=== PATIENT | female | born 1960 | race Caucasian/White ===

== ENCOUNTER 2018-04-02 15:49 | Emergency (ER) | payer OTHER, SELFPAY ==
[2018-04-02 16:22] VITALS: BP 115/71; PULSE 74; RESP 14; TEMP 36.6; O2SAT 98
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
== END 2018-04-02 18:57 | disposition home or self-care (01) ==
LOC: ER 19:00
PROVIDERS: Emergency Provider Nurse Practitioner Acute Care
DX: S16.1XXA Strain of muscle, fascia and tendon at neck level, initial encounter (principal); V44.5XXA Car driver injured in collision with heavy transport vehicle or bus in traffic accident, initial encounter
CPT/HCPCS: 99284; 72040; 72110; 99282

== ENCOUNTER 2019-08-02 08:26 | Emergency (ER) | payer OTHER, SELFPAY ==
[2019-08-02 08:33] VITALS: BP 109/63; PULSE 69; RESP 16; TEMP 35.9; O2SAT 100
--- NOTE | 2019-08-02 08:36 | ED.GENADUL_ITS ---
Discharge Plan Disposition Patient Disposition: HOME Condition: Stable Discharge Details Chief Complaint: Vascular Clinical Impression: Posterior left knee pain Primary Care Provider: None,None ED Provider: Nanda Peraza Home Meds and New Rx's Prescriptions: Continued Vitamins and Minerals Tablet 1 tab PO PRN PRNRF: 0 Discharge Instructions Instructions: Knee Pain (ED) Additional Instructions: Call the radiology department tomorrow morning to schedule your left lower e xtremity ultrasound tomorrow to rule out a blood clot or cyst in the back of your knee. Keep the Alexander wrap in place to help with pain. You can apply ice or heat to the area for 20 minutes at a time. Follow-up with your primary care doctor in 1 week as needed. Return to the emergency department with any worsening or new concerning symptoms. Discharge Data Discharge Physician: Nanda Peraza Medical Decision Making 58-year-old female presents with left posterior knee pain for the past 5 days. Pain only occurs with squatting and bending at the left knee. Denies any fever, known injury, recent surgery, recent travel, calf pain. She has no h/o DVT risk factors. Nontoxic-appearing. Knee normal to inspection. No tenderness to palpation of knee or leg. Normal range of motion without pain or ligamentous instability. No evidence of infection or trauma. Negative Jacquie's sign. History and present ation not consistent with septic arthritis or DVT. Suspect with pain mainly with bending or squatting, more consistent with Woodard's cyst vs effusion, versus strain or sprain. She was offered x-ray but declines. An order form was completed for outpatient left lower extremity ultrasound tomorrow with radiology. Patient is advised to follow-up in the ED after for results. An Alexander wrap was placed in the left knee. She was given a dose of ibuprofen. She was advised on the importance of ibuprofen and Tylenol, rest, ice or heat. Usual and customary return precautions given prior to discharge. HPI General Mode of arrival: ambulatory . Date/Time Provider Initiated Documentation: 08/02/19 08:30 . Limitations to Documentation: no limitations . Information obtained by: patient . History of Present Illness 58 year old F presents to the emergency department with the chief complaint of L posterior knee pain , and is localized to the lower extremity (L posterior knee). Chelsie ent reports no radiation. Patient started experiencing this day(s) (5) and it has been constant. Rest improves symptom(s), Other factors that worsen symptoms (bending knee and squatting) . Patient notes no other symptoms.. Patient did receive the following treatments prior to arrival, none Related Data Home Medications Medication Instructions Recorded Confirmed Vitamins and Minerals 1 tab PO PRN PRN 04/02/18 08/02/19 Allergies Allergy/AdvReac Type Severity Reaction Status Date / Time No Known Allergies Allergy Unverified 08/02/19 08:36 General Stated Complaint: Vascular SANDY: 3 Review of Systems All systems reviewed & are unremarkable except as noted in HPI and below Constitutional Constitutional: Reports as per HPI, Denies chills and Denies fever(s) Eyes Eyes: Denies blurry vision ENT Ears, Nose, Mouth, and Throat: Denies dizziness, Denies sore throat and Denies throat swelling Cardiovascular Cardiovascular: Denies chest pain and Denies dyspnea Respiratory Respiratory: Denies cough and Denies dyspnea Gastrointestinal Gastrointestinal: Denies abdominal pain, Denies diarrhea and Denies vomiting Genitourinary Genitourinary: Denies hematuria and Denies dysuria Musculoskeletal Musculoskeletal: Denies back pain and Denies numbness Integumentary/Breasts Skin/Breast: Denies lesions and Denies rash Neurologic Neurologic: Denies dizziness, Denies focal weakness and Denies numbness Allergic/Immunologic Allergic/Immunologic: Denies throat swelling [facility] Medical History No significant past medical history (Acute) Surgical History History of breast surgery (Acute) Social History Smoking/Tobacco Use Status: Never Drug use: Never Substance use type: does not use Do you feel safe in your relationship?: Yes Exam Const General: cooperative, healthy appearing and no acute distress HENMT Head: normal to inspection Mouth: oral mucosae normal Eyes General: appearance normal, both eyes and all related structures Neck Neck: normal visual inspection Resp Effort & Inspection: normal respiratory effort and able to speak in complete sentences Cardio Rate: regular rate Skin General skin exam: no rashes or lesions noted Neuro General: alert, awake and oriented x3 Motor: muscle tone normal throughout Extrem Knee images: 1. No tenderness to palpation. No erythema, edema, ecchymoses. No rash or lesions. Other: No L calf tenderness. L DP/PT pulses intact. Negative Jacquie's signs L leg. No pain with ROM L leg. Normal range of motion at left hip, left ankle, left foot. Remainder of left lower extremity normal to inspection. Psych Appearance: grossly normal Affect: normal affect Course Vital Signs Vital signs: Vital Signs Temperature 96.6 F L 08/02/19 08:33 Pulse 69 08/02/19 08:33 Respiratory Rate 16 08/02/19 08:33 Blood Pressure 109/63 08/02/19 08:33 Pulse Oximetry 100 08/02/19 08:33 Temperature 96.6 F L 08/02/19 08:33 Temperature Source Skin 08/02/19 08:33 Pulse 69 08/02/19 08:33 Respiratory Rate 16 08/02/19 08:33 Respiratory Effort Non-Labored 08/02/19 08:33 Blood Pressure 109/63 08/02/19 08:33 Blood Pressure Position Sitting 08/02/19 08:33 Pulse Oximetry 100 08/02/19 08:33 Oxygen Delivery Method Room Air 08/02/19 08:33 Oxygen Flow Rate 0 08/02/19 08:33 Pain Level 1 08/02/19 08:33
[2019-08-02 08:41] VITALS: RESP 16
[2019-08-02] MEDS: Ibuprofen 600 MG TAB (09:05)
== END 2019-08-02 09:09 | disposition home or self-care (01) ==
LOC: ER 09:13
PROVIDERS: Emergency Provider Physician Assistant
DX: M25.562 Pain in left knee (principal)
CPT/HCPCS: 99282

== ENCOUNTER 2019-08-03 01:39 | Outpatient (CLI) | payer OTHER, SELFPAY ==
--- NOTE | 2019-08-03 10:41 | DI.US_ITS ---
EXAM: US LOWER EXTREMITY VENOUS LT CLINICAL HISTORY: L POSTERIOR KNEE PAIN BENDING SQUATTING, R/O DVT BAKERS CYST. TECHNIQUE: Left lower extremity venous ultrasound performed using grayscale, color-flow, and spectra l Doppler analysis. COMPARISON: No exams were available for comparison FINDINGS: The left common femoral, femoral and popliteal veins demonstrate normal compressibility, augmentation , and color Doppler. The posterior tibial veins are patent. Saphenofemoral junction appears unremarka ble. No evidence of a popliteal cyst. IMPRESSION: No DVT. Findings were discussed with the emergency department on the date of the examination.
== END 2019-08-03 01:59 ==
PROVIDERS: Visit Provider Physician Assistant
DX: M25.562 Pain in left knee (principal)
CPT/HCPCS: 93971

== ENCOUNTER 2019-08-03 11:00 | Emergency (ER) | payer OTHER, SELFPAY ==
[2019-08-03 11:04] VITALS: BP 109/57; PULSE 74; RESP 18; TEMP 36.3; O2SAT 100
--- NOTE | 2019-08-03 12:59 | ED.GENADUL_ITS ---
Discharge Plan Disposition Patient Disposition: HOME Condition: Stable Discharge Details Chief Complaint: Orthopedic Clinical Impression: Knee pain Primary Care Provider: None,None ED Provider: Alessia Anton Home Meds and New Rx's Prescriptions: No Action Vitamins and Minerals Tablet 1 tab PO PRN PRNRF: 0 Discharge Instructions Instructions: Knee Pain (ED) Additional Instructions: Please return immediately to the emergency department if you develop any new or worsening symptoms, if your condition does not improve as expected, or if you become otherwise concerned. It is extremely important that you call soon as possible to make an appointment to be seen in follow-up for this visit by your primary care doctor, and also by an orthopedic surgeon as we discussed. Referrals: Bolivar Vásquez MD [ [facility] STAFF PHYSICIAN] - Discharge Data Discharge Date/Time-TO BE ENTERED AT DEPARTURE: 08/03/19 13:08 Medical Decision Making Zayra Suarez is a 58 y/o woman without reported h/o medical problems who presented to the emergency department for US results after being seen here yesterady for knee pain and being scheduled for f/u US today. On exam Pt is very well and non-toxic appearing. No TTP of the knee, full painless ROM, normal inspection, distal LLE NVI. Exam/hx not c/w with septic arthritis, other infectious etiology, vascular compromise, other acute emergent life/limb threatening process. US neg. Plan for outpt f/u with ortho and PCP. I had a lengthy discussion with Patient regarding return to emergency department precautions, home care, and importance of outpatient follow-up. Pt verbalizes understanding of the plan and is amenable. Patient discharged to home with clear plan for outpatient follow-up. All questions were answered. Disposition decision was made weighing the risks and benefits of hospitalization versus outpatient treatment, the risk for further decompensation, and the patient's wishes. Medical Records Medical records reviewed: Yes I reviewed the patient's medical records. Imaging Data Radiologic Study: Attestation: I personally reviewed and interpreted this imaging study as follows: Radiologist's impression: EXAM: US LOWER EXTREMITY VENOUS LT CLINICAL HISTORY: L POSTERIOR KNEE PAIN BENDING SQUATTING, R/O DVT BAKERS CYST. TECHNIQUE: Left lower extremity venous ultrasound performed using grayscale, color-flow, and spectral Doppler analysis. COMPARISON: No exams were available for comparison FINDINGS: The left common femoral, femoral and popliteal veins demonstrate normal compressibility, augmentation, and color Doppler. The posterior tibial veins are patent. Saphenofemoral junction appears unremarkable. No evidence of a popliteal cyst. IMPRESSION: No DVT. HPI General Mode of arrival: ambulatory . Date/Time Provider Initiated Documentation: 08/03/19 11:18 . Limitations to Documentation: no limitations . Information obtained by: patient, RN notes reviewed and old records reviewed . HPI Narrative: Zayra Suarez is a 58 y/o woman without reported h/o major medical problems presenting to the emergency department for ultrasound results. Per Pt and record review, Pt was seen here yesterday for 5 days of left knee pain. Pt declined knee xray at yesterday's visit, outpt US for r/o DVT for today was ordered. 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 Pt reports no change in nature of her pain since visit yesterday. She states that pain is behind her left knee and occurs only with moving from sitting to standing or vice versa. No pain while walking. She denies any other pain, swelling, rash, numbness, weakness. No recent illness. Feels otherwise well and in her usual state of health. Related Data Home Medications Medication Instructions Recorded Confirmed Vitamins and Minerals 1 tab PO PRN PRN 04/02/18 08/03/19 Allergies Allergy/AdvReac Type Severity Reaction Status Date / Time No Known Allergies Allergy Unverified 08/03/19 11:08 General Stated Complaint: Orthopedic ASNDY: 4 Review of Systems Narrative: Constitutional: denies fevers Eyes: denies eye pain ENT: denies ear pain, dental pain, sore throat Cardiovascular: denies chest pain, edema Respiratory: denies SOB GI: denies abdominal pain, vomiting : denies flank pain MSK: denies back pain, neck pain, myalgias, reports left knee pain as per HPI Skin: denies rash Neuro: denies headaches, numbness, weakness PFSH Medical History No significant past medical history (Acute) Social History Smoking/Tobacco Use Status: Never Drug use: Never Substance use type: does not use Do you feel safe in your relationship?: Yes Exam Narrative Exam Narrative: Constitutional: well and [id number], pleasant, conversing normally HENT: head atraumatic/normocephalic/normal inspection, mucous membranes moist Eyes: conjunctiva normal, sclera normal, pupils 3mm b/l Neck: no stridor, normal ROM, trachea midline Resp: normal work of breathing Cardio: normal rate, normal rhythm Skin: warm, dry, normal color, no rash Neuro: alert, not altered, grossly non-focal, normal tone, normal gait Ext: no edema, DP pulse intact and symmetric, no posterior calf TTP, no TTP of the left knee or popliteal region, no effusion, no overlying ski changes to the knee, pain elicited with varus stress, no laxity noted during ant or post drawer, FROM of left knee without pain Psych: normal mood, normal affect, normal behavior Course Vital Signs Vital signs: Vital Signs Temperature 36.3 C L 08/03/19 11:04 Pulse 74 08/03/19 11:04 Respiratory Rate 18 08/03/19 11:04 Blood Pressure 109/57 L 08/03/19 11:04 Pulse Oximetry 100 08/03/19 11:04 Temperature 36.3 C L 08/03/19 11:04 Temperature Source Skin 08/03/19 11:04 Pulse 74 08/03/19 11:04 Respiratory Rate 18 08/03/19 11:04 Respiratory Effort Non-Labored 08/03/19 11:08 Blood Pressure 109/57 L 08/03/19 11:04 Blood Pressure Position Sitting 08/03/19 11:04 Pulse Oximetry 100 08/03/19 11:04 Oxygen Delivery Method Room Air 08/03/19 11:04 Oxygen Flow Rate 0 08/03/19 11:04 Pain Level 0 08/03/19 11:04
== END 2019-08-03 13:08 | disposition home or self-care (01) ==
PROVIDERS: Emergency Provider Student in an Organized Health Care Education/Training Program
DX: M25.562 Pain in left knee (principal)

== ENCOUNTER 2019-08-31 15:03 | Emergency (ER) | payer OTHER, SELFPAY ==
[2019-08-31 15:07] VITALS: BP 139/78; PULSE 95; TEMP 36.5; O2SAT 98
[2019-08-31] MEDS: predniSONE 20 MG TAB 60 MG PO (15:48)
[2019-08-31] MEDS: Albuterol/Ipratropium 3 ML UPD VIAL UPD ×3 (15:48→17:20)
--- NOTE | 2019-08-31 15:52 | ED.GENADUL_ITS ---
Discharge Plan Disposition Patient Disposition: HOME Condition: Improving Discharge Details Chief Complaint: GenMedical Clinical Impression: Acute bronchitis, Chest congestion Primary Care Provider: Rubi Frey ED Provider: Nanda Peraza Home Meds and New Rx's Prescriptions: New albuterol sulfate 2.5 mg /3 mL (0.083 %) solution for nebulization 2.5 mg IH Q4H PRN (Reason: shortness of breath or wheezing) Qty: 75 RF: 0 prednisone 20 mg tablet See Rx Instructions .ROUTE .COMPLEX Qty: 12 RF: 0 albuterol sulfate 90 mcg/actuation aerosol powdr breath activated 2 inh IH Q6H PRN (Reason: shortness of breath or wheezing) Qty: 1 RF: 0 codeine-guaifenesin 10-100 mg/5 mL liquid 10 ml PO Q6H PRN (Reason: cough) Qty: 120 RF: 0 Continued Vitamins and Minerals Tablet 1 tab PO PRN PRNRF: 0 Discharge Instructions Instructions: Acute Bronchitis (ED) Additional Instructions: Drink plenty of fluids and get plenty of rest. Alternate tylenol and motrin as needed and directed for pain. Use the albuterol inhaler and nebulizers as needed and directed for shortness of breath or wheezing. Take the steroids until finished. Also take [id number] Mucinex to help with breaking up mucus and chest congestion. Take the Robitussin with codeine as directed to help with cough. Follow-up with your primary care doctor in 1 week. Return to the emergency department with any worsening or new concerning symptoms. Stand Alone Forms: Work Release Discharge Data Discharge Date/Time-TO BE ENTERED AT DEPARTURE: 08/31/19 18:08 Discharge Physician: Nanda Peraza Medical Decision Making 1515 -- 58yo F presents w/ cough with chest congestion, fever and chills for the past 5 days. She states symptoms started with sore throat which is now resolved. She admits to intermittent shortness of breath. She states she has had fever and chills but has not taken her temperature. She admits to fairly good appetite. She denies any vomiting or diarrhea. She did receive the flu shot this year. Afebrile. Normal oxygen saturation. She appears nontoxic. Normal ENT exam. She has rhonchi and coarse breath sounds mid to lower lungs bilaterally. Differential diagnosis includes bronchitis, pneumonia, viral syndrome, influenza. Will give a DuoNeb steroids and refer for chest x-ray. 1630 -- chest x-ray negative. Patient reassessed still complaining of cough and shortness of breath. Oxygen saturation 97% on room air. Still with coarse breath sounds in bases bilaterally. Some increase in wheezing. Will give an aerogen neb and reassess. 1720 --patient reassessed -still complaining of cough and shortness of breath. Still with coarse breath sounds. Oxygen saturation 98% on room air. Will give another allergen neb and reassess. 1800 --patient reassessed -states she feels better. Stable oxygen saturation. Breath sounds improved. No wheezing noted. Patient states she feels good to go home. Patient sent with nebulizer machine per respiratory. We will send with albuterol inhaler, albuterol nebs, Robitussin with codeine and prednisone. Advised to follow up with the primary care doctor for re-evaluation. Usual and customary return precautions given prior to discharge. Medical Records Medical records reviewed: Yes I reviewed the patient's medical records. Imaging Data Radiologic Study: Radiologist's impression: XR CHEST 2V PA LATERAL CLINICAL HISTORY: cough, fever, r/o pneumonia TECHNIQUE: 2D digital imaging was performed. COMPARISON: No exams were available for comparison FINDINGS: The cardiac and mediastinal contours have a normal appearance. The lungs are well inflated and clear. No infiltrate, effusion or pneumothorax is seen. No spine or rib fracture is identified. IMPRESSION: Negative chest x-ray. HPI General Mode of arrival: ambulatory . Date/Time Provider Initiated Documentation: 08/31/19 15:10 . Limitations to Documentation: no limitations . Information obtained by: patient . History of Present Illness 58 year old F presents to the emergency department with the chief complaint of Cough, chest congestion, fever, chills, intermittent shortness of breath, and is localized to the chest. Patient started experiencing this day(s) (5) and it has been constant. No relieving factors improve symptom(s), No exacerbating factors reported . Patient notes cough, fever/chills and shortness of breath; denies headaches, loss of appetite, malaise, nausea/vomiting, rash, seizure, syncope and weakness. Patient did receive the following treatments prior to arrival, none Related Data Home Medications Medication Instructions Recorded Confirmed Vitamins and Minerals 1 tab PO PRN PRN 04/02/18 08/31/19 albuterol sulfate 2 inh IH Q6H PRN #1 each 08/31/19 albuterol sulfate 2.5 mg IH Q4H PRN #75 ml 08/31/19 codeine-guaifenesin 10 ml PO Q6H PRN #120 ml 08/31/19 prednisone See Rx Instructions .ROUTE 08/31/19 .COMPLEX #12 tab Previous Rx's Medication Instructions Recorded albuterol sulfate 2 inh IH Q6H PRN #1 each 08/31/19 albuterol sulfate 2.5 mg IH Q4H PRN #75 ml 08/31/19 codeine-guaifenesin 10 ml PO Q6H PRN #120 ml 08/31/19 prednisone See Rx Instructions .ROUTE 08/31/19 .COMPLEX #12 tab Allergies Allergy/AdvReac Type Severity Reaction Status Date / Time No Known Allergies Allergy Unverified 08/31/19 15:11 General Stated Complaint: GenMedical SANDY: 3 Review of Systems All systems reviewed & are unremarkable except as noted in HPI and below Constitutional Constitutional: Reports as per HPI, Reports chills and Reports fever(s) Eyes Eyes: Denies blurry vision ENT Ears, Nose, Mouth, and Throat: Denies dizziness, Denies sore throat and Denies throat swelling Cardiovascular Cardiovascular: Denies chest pain and Reports dyspnea Respiratory Respiratory: Reports chest congestion, Reports cough and Reports dyspnea Gastrointestinal Gastrointestinal: Denies abdominal pain, Denies diarrhea and Denies vomiting Genitourinary Genitourinary: Denies hematuria and Denies dysuria Musculoskeletal Musculoskeletal: Denies back pain and Denies numbness Integumentary/Breasts Skin/Breast: Denies lesions and Denies rash Neurologic Neurologic: Denies dizziness, Denies focal weakness and Denies numbness Allergic/Immunologic Allergic/Immunologic: Denies throat swelling PFSH Medical History No significant past medical history (Acute) Social History Smoking/Tobacco Use Status: Never Alcohol Intake: current Alcohol Intake frequency: holidays/special occasions only Drug use: Never Substance use type: does not use Do you feel safe at home: Yes Do you feel safe in your relationship?: Yes Exam Const General: cooperative and no acute distress HENMT Head: normal to inspection Face and sinus: normal facial exam Eyes General: appearance normal, both eyes and all related structures EOM: EOM intact bilaterally Neck Neck: normal visual inspection and No submandibular swelling Lymphatic: no lymphadenopathy noted Chest Chest: normal inspection of the chest and no tenderness Resp Effort & Inspection: normal respiratory effort and able to speak in complete sentences Auscultation: rhonchi lower bilaterally Cardio Rate: regular rate Rhythm: regular rhythm GI Inspection: normal to inspection Palpation: soft, not firm, not rigid and nontender Auscultation: normal bowel sounds Skin General skin exam: no rashes or lesions noted Neuro General: alert, awake and oriented x3 Cognition: normal cognition Speech: speech normal Motor: muscle tone normal throughout Sensory Exam: no sensory deficits noted Extrem General: normal to inspection, full ROM, normal capillary refill, no calf tenderness bilaterally and no edema Psych Appearance: grossly normal Mental Status: mental status grossly normal Speech and Movement: speech and movement normal Affect: normal affect Course Vital Signs Vital signs: Vital Signs Temperature 97.7 F 08/31/19 15:07 Pulse 95 H 08/31/19 15:07 Blood Pressure 139/78 08/31/19 15:07 Pulse Oximetry 98 08/31/19 15:07 Temperature 97.7 F 08/31/19 15:07 Temperature Source Temporal Artery Scan 08/31/19 15:07 Pulse 95 H 08/31/19 15:07 Respiratory Effort Non-Labored 08/31/19 15:12 Blood Pressure 139/78 08/31/19 15:07 Blood Pressure Position Sitting 08/31/19 15:07 Pulse Oximetry 98 08/31/19 15:07 Oxygen Delivery Method Room Air 08/31/19 15:07 Oxygen Flow Rate 0 08/31/19 15:07 Pain Level 3 08/31/19 15:07
--- NOTE | 2019-08-31 16:13 | DI.RAD_ITS ---
EXAM: XR CHEST 2V PA LATERAL CLINICAL HISTORY: cough, fever, r/o pneumonia TECHNIQUE: 2D digital imaging was performed. COMPARISON: No exams were available for comparison FINDINGS: The cardiac and mediastinal contours have a normal appearance. The lungs are well inflated and clear . No infiltrate, effusion or pneumothorax is seen. No spine or rib fracture is identified. IMPRESSION: Negative chest x-ray.
[2019-08-31 16:45] VITALS: RESP 16
[2019-08-31 16:55] VITALS: PULSE 91; RESP 12; RESP 4; RESP 5; O2SAT 95
[2019-08-31 17:06] VITALS: PULSE 103; RESP 12; RESP 2; RESP 4; RESP 5; O2SAT 100
[2019-08-31 17:20] VITALS: PULSE 105; RESP 16; RESP 2; RESP 4; RESP 5; O2SAT 100
[2019-08-31 17:26] VITALS: PULSE 118; RESP 16; RESP 2; O2SAT 100
== END 2019-08-31 18:08 | disposition home or self-care (01) ==
PROVIDERS: Emergency Provider Physician Assistant; PCP Nurse Practitioner
DX: R09.89 Other specified symptoms and signs involving the circulatory and respiratory systems (principal); J20.9 Acute bronchitis, unspecified; R50.9 Fever, unspecified
CPT/HCPCS: 94640; 99285; 71046; J7512; J7620

== ENCOUNTER 2019-10-15 01:11 | Outpatient (CLI) | payer OTHER, SELFPAY ==
--- NOTE | 2019-10-15 14:41 | DI.MAMMO_ITS ---
EXAM: MAMMO SCREENING CLINICAL HISTORY: screening, Z12.39 TECHNIQUE: Mammograms were interpreted according to the usual protocol including computer analysis w [email or web address] CAD system, tomosynthesis and C-view imaging. FINDINGS: The breasts are heterogeneously dense. No dominant mass identified in either breast. A group of maik ign-appearing microcalcifications are noted in the central portion of the left breast in the lower ou ter quadrant and are unchanged in comparison with prior examination of September 2017. No other signific ant change seen. IMPRESSION: No specific evidence of malignancy at this time. BI-RADS Cat 1 - Negative. Breast Density - Category C - Heterogeneously dense.
== END 2019-10-15 01:31 ==
PROVIDERS: PCP Student in an Organized Health Care Education/Training Program; Visit Provider Nurse Practitioner
DX: Z12.31 Encounter for screening mammogram for malignant neoplasm of breast (principal); R92.0 Mammographic microcalcification found on diagnostic imaging of breast
CPT/HCPCS: 77063; 77067

== ENCOUNTER 2020-01-19 01:47 | Outpatient (CLI) | payer OTHER, SELFPAY ==
--- NOTE | 2020-01-19 14:00 | DI.DEXA_ITS ---
EXAM: XR DEXA BONE DENSITY W/WO MK CLINICAL HISTORY: Fam Hx osteoporosis TECHNIQUE: COMPARISON: No exams were available for comparison FINDINGS: Lateral Spine Image: Unremarkable. No compression deformities identified. Left hip: Total T-Score: -1.0 Total Z-Score: -0.1 T- and Z-scores: Within normal limits. Lumbar Spine: Total T-Score: -2.8 Total Z-Score: -1.5 T- and Z-scores: Findings consistent with osteoporosis and high fracture risk. IMPRESSION: Findings consistent with osteoporosis in the lumbar spine.
== END 2020-01-19 02:07 ==
PROVIDERS: PCP Student in an Organized Health Care Education/Training Program; Visit Provider Student in an Organized Health Care Education/Training Program
DX: M81.0 Age-related osteoporosis without current pathological fracture (principal); Z82.62 Family history of osteoporosis
CPT/HCPCS: 77080

== ENCOUNTER 2020-01-21 07:19 | Outpatient (CLI) | payer OTHER, SELFPAY ==
[2020-01-21 07:36] LABS: HCT 42.1 % (36.0-46.0); HGB 14.1 g/dL (12.0-15.5); Mean Corp. HGB Concentration 33.5 g/dL (32.0-36.0); Mean Corpuscular Hemoglobin 28.8 pg (27.0-33.0); Mean Corpuscular Volume 85.9 fL (80-95); Mean Platelet Volume 9.6 fL (8.0-11.0); Platelet Count 303 x1000/uL (130-400); RBC Distribution Width 12.3 % (11.7-14.6); White Blood Cell Count 6.56 k/cumm (4.4-10.8)
[2020-01-21 08:47] LABS: ALT 16 U/L (14-59); AST 17 U/L (15-37); Albumin 3.9 g/dL (3.4-5.0); Alkaline Phosphatase 102 U/L (46-116); Anion Gap 7.9 mmol/L (3-11); BUN 20 mg/dL (7-18); Bilirubin, Total 0.5 mg/dL (0.2-1.0); CO2 28.1 mmol/L (21.0-32.0); CREATININE 0.75 mg/dL (0.55-1.02); Calcium 9.3 mg/dL (8.5-10.1); Calculated LDL 118 mg/dL (<100); Chloride 106 mmol/L (98-107); Cholesterol 218 mg/dL (<200); Glucose 94 mg/dL (74-106); HDL Cholesterol 81 mg/dL (40-60); Potassium 4.1 mmol/L (3.5-5.1); Sodium 142 mmol/L (136-145); Total Protein 7.1 g/dL (6.4-8.2); Triglyceride 97 mg/dL (<150)
== END 2020-01-21 07:39 ==
PROVIDERS: PCP Student in an Organized Health Care Education/Training Program; Visit Provider Student in an Organized Health Care Education/Training Program
DX: I10 Essential (primary) hypertension (principal); R53.83 Other fatigue; Z13.220 Encounter for screening for lipoid disorders; Z13.1 Encounter for screening for diabetes mellitus
CPT/HCPCS: 36415; 80053; 80061; 85027

== ENCOUNTER 2020-02-09 07:30 | Outpatient (CLI) | payer OTHER, SELFPAY ==
[2020-02-09 07:58] LABS: Abs Immature Grans 0.02 k/cumm (0.0-0.09); Absolute Basophil Count 0.02 k/cumm (0.0-0.2); Absolute Eosinophil Count 0.16 k/cumm (0.0-0.7); Absolute Lymphocyte Count 2.71 k/cumm (1.2-3.4); Absolute Monocyte Count 0.42 k/cumm (0.11-0.7); Absolute Neutrophil Count 3.69 k/cumm (1.2-6.7); Basophils % 0.3; Eosinophils % 2.3; HGB 13.4 g/dL (12.0-15.5); Immature Grans % 0.3 %; Lymphocytes % 38.6; Mean Corp. HGB Concentration 32.7 g/dL (32.0-36.0); Mean Corpuscular Hemoglobin 28.3 pg (27.0-33.0); Mean Corpuscular Volume 86.7 fL (80-95); Mean Platelet Volume 9.4 fL (8.0-11.0); Neutrophils % 52.5; Platelet Count 320 x1000/uL (130-400); RBC 4.73 m/cumm (4.00-5.20); RBC Distribution Width 12.2 % (11.7-14.6); White Blood Cell Count 7.02 k/cumm (4.4-10.8)
[2020-02-09 09:25] LABS: ALT 22 U/L (14-59); AST 18 U/L (15-37); Alkaline Phosphatase 99 U/L (46-116); Anion Gap 8.4 mmol/L (3-11); BUN 24 mg/dL (7-18); Bilirubin, Total 0.4 mg/dL (0.2-1.0); CO2 28.6 mmol/L (21.0-32.0); CREATININE 0.75 mg/dL (0.55-1.02); Calcium 9.6 mg/dL (8.5-10.1); Chloride 102 mmol/L (98-107); Glucose 98 mg/dL (74-106); Potassium 4.4 mmol/L (3.5-5.1); Sodium 139 mmol/L (136-145); TSH 2.05 uIU/mL (0.36-3.74); Total Protein 7.4 g/dL (6.4-8.2)
[2020-02-09 09:26] LABS: Magnesium 2.4 mg/dL (1.8-2.4)
[2020-02-09 18:58] LABS: Vitamin D 25 Total 31.4 ng/ml (30-100)
[2020-02-15 10:39] LABS: Misc Referral (MAYO) See Comments
== END 2020-02-09 07:50 ==
PROVIDERS: Nurse Practitioner; PCP Student in an Organized Health Care Education/Training Program; Visit Provider Internal Medicine
DX: M81.0 Age-related osteoporosis without current pathological fracture; R20.0 Anesthesia of skin; E55.9 Vitamin D deficiency, unspecified
CPT/HCPCS: 36415; 80053; 82306; 82310; 82340; 82565; 83735; 84443; 85025

== ENCOUNTER 2020-08-22 15:56 | Outpatient (REF) | payer OTHER, SELFPAY ==
--- NOTE | 2020-08-22 15:42 | PAPFT_PTH ---
PATIENT: Zarya Doll LOC: [facility] U#:[id number] AGE/SX: 59/F ROOM: RE08/22/[address]: Lakshmi Russell DO : 1960 BED: DIS: 08/22/2020 SPEC #: [id number] RECD: 08/22/20 18:07 STATUS: STEVEN REQ #: [id number] KOTA: 08/22/20 15:[address]: Lakshmi Russell [facility]PT[facility] Cytology RECD BY: Heather Evans ENTERED: 08/22/20 18:08 SP TYPE: PAPFT OTHR DR: Estela Aguilar DO Tissues: 1 - CX/ENDOCX FOR PAP SMEARS Procedures: PAP THIN PREP/UVM Screening HPV DNA PROBE Comments: [id number]
== END 2020-08-22 16:16 ==
LOC: LBN 15:56
PROVIDERS: PCP Student in an Organized Health Care Education/Training Program; Visit Provider Obstetrics & Gynecology
DX: Z12.4 Encounter for screening for malignant neoplasm of cervix (principal); Z11.51 Encounter for screening for human papillomavirus (HPV)
CPT/HCPCS: 88142; 87624

== ENCOUNTER 2020-08-29 01:37 | Outpatient (CLI) | payer OTHER, SELFPAY ==
--- NOTE | 2020-08-29 08:39 | DI.US_ITS ---
EXAM: US PELVIS TRANSVAGINAL CLINICAL HISTORY: Family history of ovarian cancer,Z80.41,cervical polyp. TECHNIQUE: Transabdominal and transvaginal pelvic ultrasound was performed using standard protocol. COMPARISON: No exams were available for comparison FINDINGS: KIDNEYS: Kidneys are symmetric in size. There is bilateral nephrolithiasis. An 8 mm echogenic shadow ing focus is seen in the right kidney. Two 5 mm foci are seen in the left kidney. No evidence of hy dronephrosis. No renal mass or cyst identified. UTERUS: Position: Retroverted. There is limited visualization of the fundus of the uterus due to its positio n. Size: 5.6 long by 3.7 AP by 4.6 transverse cm Endometrium: 0.6 cm. Several calcifications are seen within the endometrium. No definite discrete ma ss is seen. Myometrium: Unremarkable. Cervix: There is a question of a mass within the cervical endometrial cavity. It measures 1.1 x 0.3 x 0.3 cm. OVARIES: Right: 2.4 x 1.9 x 1.0 cm Cyst or mass: 1.2 x 1.4 x 1.5 cm simple cyst. No solid ovarian mass. Left: 1.4 x 0.9 x 0.7 cm Cyst or mass: None. DOPPLER: Color: Symmetric and uniform flow to both ovaries. No hyperemia. Duplex: Normal ovarian arterial waveforms visualized. CUL-DE-SAC: Free fluid: None. Other: None. IMPRESSION: 1. Bilateral nephrolithiasis. No evidence of hydronephrosis. 2. Retroverted uterus with limited visualization of the fundus. Possible isoechoic mass seen within the cervical endometrial canal measuring 1.1 x 0.3 x 0.3 cm. Gynecologic consult is recommended for further evaluation. 3. Unremarkable bilateral ovaries. DATA REPOSITORY:
== END 2020-08-29 01:38 | disposition home or self-care (01) ==
LOC: DI 01:37
PROVIDERS: PCP Student in an Organized Health Care Education/Training Program; Visit Provider Obstetrics & Gynecology
DX: N20.0 Calculus of kidney (principal); Z80.41 Family history of malignant neoplasm of ovary; N85.4 Malposition of uterus
CPT/HCPCS: 76830; 76856

== ENCOUNTER 2020-09-20 12:16 | Emergency (ER) | payer OTHER, SELFPAY ==
--- NOTE | 2020-09-20 12:19 | ED.GENADUL_ITS ---
Discharge Plan Disposition Patient Disposition: HOME Condition: Fair Discharge Details Clinical Impression: Infected dog bite of hand including fingers Primary Care Provider: Estela Aguilar ED Provider: Barbara Terrell Home Meds and New Rx's Prescriptions: Continued mecobalamin (vitamin B12) 1,000 mcg tablet,disintegrating 1,000 mcg SL DAILY RF: 0 ascorbate calcium (vitamin C) 500 mg tablet See Rx Instructions PO DAILY RF: 0 amoxicillin-pot clavulanate [Augmentin] 875-125 mg tablet 1 tab PO BID Qty: 20 RF: 0 calcium carb-magnesium carb 250-300 mg tablet 2 tab PO DAILY RF: 0 Discharge Instructions Instructions: Animal Bite (ED) Additional Instructions: Please continue taking the Augmentin as previously prescribed. Return to the ED or be seen by PCP in the next 2 to 3 days. If the erythema extends to the wrist or past the wrist please return to the ER immediately for admission into the hospital. Follow up with primary care provider in 2-30days. Return to ED sooner if any worsening or concerns. Increase oral fluids. Please take Tylenol or Ibuprofen with food every 4-6 hours as needed for pain and swelling. Keep a clean dry dressing over the wound. Stand Alone Forms: Work Release Referrals: Estela Aguilar DO [Primary Care Provider] - Discharge Data Discharge Date/Time-TO BE ENTERED AT DEPARTURE: 09/20/20 15:10 Medical Decision Making Note created in error by me. I did not see or examine the patient. HPI General Date/Time Provider Initiated Documentation: 09/20/20 12:17 . Related Data Home Medications Medication Instructions Recorded Confirmed ascorbate calcium (vitamin C) 500 See Rx Instructions PO DAILY 12/18/19 09/20/20 mg tablet calcium carb-magnesium carb 250 2 tab PO DAILY tab 12/18/19 09/20/20 mg-300 mg tablet mecobalamin (vitamin B12) 1,000 1,000 mcg SL DAILY 12/18/19 09/20/20 mcg disintegrating tablet,sublingual amoxicillin 875 mg-potassium 1 tab PO BID #20 tab 09/19/20 09/20/20 clavulanate 125 mg tablet Previous Rx's Medication Instructions Recorded amoxicillin 875 mg-potassium 1 tab PO BID #20 tab 09/19/20 clavulanate 125 mg tablet Allergies Allergy/AdvReac Type Severity Reaction Status Date / Time No Known Allergies Allergy Verified 09/19/20 14:08 General SANDY: 3 PFSH Medical History Cervical polyp Family history of breast cancer Family history of cardiovascular disease Family history of ovarian cancer Family hx of colon cancer [place] (2002)(42yo) [ ] Rpt Hx of viral illness Possible COVID19 .. late Jul travel, followed by terrible flu-like illness with significant chest discomfort/SOB. No significant past medical history Osteoporosis Based on ankle tamar, hip U/S. Fam Hx (Grand mo kyphosis). Improved diet, no bisphosph. [ ] DEXA Tinnitus Well woman exam with routine gynecological exam Surgical History History of breast surgery History of right breast biopsy (~2009) Calcifications Family History Mother Breast cancer Father Colon cancer Heart disease Depression Sister Skin cancer Cancer Ovarian cancer Paternal Grandmother Breast cancer Maternal Grandmother Breast cancer Social History Smoking/Tobacco Use Status: Never Smoking risk assessment performed?: Yes Alcohol Intake: current Alcohol Intake frequency: holidays/special occasions only Alcohol type: beer and wine Drug use: Never Substance use type: does not use Adopted: No Caregiver/Support person: No Foster care: No Household members: spouse Housing: house Number of Children: 3 Communication Needs: None Do you need help understanding health information?: Never 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
[2020-09-20 12:26] VITALS: BP 137/71; PULSE 70; RESP 16; TEMP 36.4; O2SAT 100
--- NOTE | 2020-09-20 12:45 | ED.GENADUL_ITS ---
Discharge Plan Disposition Patient Disposition: HOME Condition: Fair Discharge Details Clinical Impression: Infected dog bite of hand including fingers Primary Care Provider: Estela Aguilar ED Provider: Barbara Terrell Home Meds and New Rx's Prescriptions: Continued mecobalamin (vitamin B12) 1,000 mcg tablet,disintegrating 1,000 mcg SL DAILY RF: 0 ascorbate calcium (vitamin C) 500 mg tablet See Rx Instructions PO DAILY RF: 0 amoxicillin-pot clavulanate [Augmentin] 875-125 mg tablet 1 tab PO BID Qty: 20 RF: 0 calcium carb-magnesium carb 250-300 mg tablet 2 tab PO DAILY RF: 0 Discharge Instructions Instructions: Animal Bite (ED) Additional Instructions: Please continue taking the Augmentin as previously prescribed. Return to the ED or be seen by PCP in the next 2 to 3 days. If the erythema extends to the wrist or past the wrist please return to the ER immediately for admission into the hospital. Follow up with primary care provider in 2-30days. Return to ED sooner if any worsening or concerns. Increase oral fluids. Please take Tylenol or Ibuprofen with food every 4-6 hours as needed for pain and swelling. Keep a clean dry dressing over the wound. Stand Alone Forms: Work Release Referrals: Estela Aguilar DO [Primary Care Provider] - Discharge Data Discharge Date/Time-TO BE ENTERED AT DEPARTURE: 09/20/20 15:10 Medical Decision Making 59-year-old female presents to the ED with chief complaint of left second digit dog bite which happened approximately Saturday night. She states it was her own dog who is about 14 years old, large breed dog. Dog was startled and bit down on her second digit. She was seen by her PCP and placed on Augmentin which she has taken 3 doses, PCP outlined the erythema, redness has extended beyond the markings. She did report that yesterday she did have some myalgias took some ibuprofen at home and took a nap. She denies any fever, no axillary tenderness no red streaks noted up her forearm. She does have decreased flexion in her left second digit. At this time there is no signs of tenosynovitis, no palmar tenderness with palpation, EXAM: XR HAND LT COMPLETE CLINICAL HISTORY: Left 2nd digit dog bite, cellulitis TECHNIQUE: COMPARISON: No exams were available for comparison FINDINGS: Three views were obtained. There appears to be soft tissue swelling of the index finger. No underlying bony abnormality seen to suggest the presence of fracture or osteomyelitis. No other bony abnormality seen involving hand. 1412: Discussed lab results with patient who verbalized understanding discussed home care and strict return instructions. Shared decision making was performed with patient regarding admission versus continuation with the oral antibiotics outpatient. Patient agrees to plan of continuing Augmentin for the next 2 to 3 days and having a follow-up visit eithe r here in the ED or by PCP within 2 to 3 days. Discussed strict return instructions if the erythema gets to the wrist or passes the wrist that she is to return to the ED immediately for admission. Patient received cefazolin 1 g IV piggyback here in department and Unasyn 3 g IV piggyback to cover for Pasteurella. Diagnosis: Infected dog bite and cellulitis to left index finger Differential diagnosis includes but not limited to, osteomyelitis, septic arthritis, worsening cellulitis HPI General Mode of arrival: ambulatory . Date/Time Provider Initiated Documentation: 09/20/20 12:17 . Limitations to Documentation: no limitations . Information obtained by: patient, RN notes reviewed and old records reviewed . HPI Narrative: 59-year-old female presents to the ED with chief complaint of left second digit dog bite which happened approximately Saturday night. She states it was her own dog who is about 14 years old, large breed dog. Dog was startled and bit down on her second digit. She was seen by her PCP and placed on Augmentin which she has taken 3 doses, PCP outlined the erythema, redness has extended beyond the markings. She did report that yesterday she did have some myalgias took some ibuprofen at home and took a nap. She denies any fever, no axillary tenderness no red streaks noted up her forearm. She does have decreased flexion in her left second digit. Related Data Home Medications Medication Instructions Recorded Confirmed ascorbate calcium (vitamin C) 500 See Rx Instructions PO DAILY 12/18/19 09/20/20 mg tablet calcium carb-magnesium carb 250 2 tab PO DAILY tab 12/18/19 09/20/20 mg-300 mg tablet mecobalamin (vitamin B12) 1,000 1,000 mcg SL DAILY 12/18/19 09/20/20 mcg disintegrating tablet,sublingual amoxicillin 875 mg-potassium 1 tab PO BID #20 tab 09/19/20 09/20/20 clavulanate 125 mg tablet Previous Rx's Medication Instructions Recorded amoxicillin 875 mg-potassium 1 tab PO BID #20 tab 09/19/20 clavulanate 125 mg tablet Allergies Allergy/AdvReac Type Severity Reaction Status Date / Time No Known Allergies Allergy Verified 09/19/20 14:08 General Stated Complaint: AnimalBite SANDY: 3 Review of Systems Narrative: Constitutional: Negative for weight loss, alert and oriented, well groomed, normal body habitus, appears comfortable. All systems reviewed & are unremarkable except as noted in HPI and below Constitutional Constitutional: Reports as per HPI, Reports body ache(s), Denies fever(s) and Reports lethargy Cardiovascular Cardiovascular: Reports system reviewed and no additional complaints, except as documented Respiratory Respiratory: Reports system reviewed and no additional complaints, except as documented Gastrointestinal Gastrointestinal: Reports system reviewed and no additional complaints, except as documented Musculoskeletal Musculoskeletal: Reports as per HPI, Reports myalgias, Reports arthralgias, Reports joint swelling, Reports stiffness and Reports other (Dog bite, increased erythema, swelling) PFSH Medical History Cervical polyp Family history of breast cancer Family history of cardiovascular disease Family history of ovarian cancer Family hx of colon cancer [place] (2002)(42yo) [ ] Rpt Hx of viral illness Possible COVID19 .. late Jul travel, followed by terrible flu-like illness with significant chest discomfort/SOB. No significant past medical history Osteoporosis Based on ankle tamar, hip U/S. Fam Hx (Grand mo kyphosis). Improved diet, no bisphosph. [ ] DEXA Tinnitus Well woman exam with routine gynecological exam Surgical History History of breast surgery History of right breast biopsy (~2009) Calcifications Family History Mother Breast cancer Father Colon cancer Heart disease Depression Sister Skin cancer Cancer Ovarian cancer Paternal Grandmother Breast cancer Maternal Grandmother Breast cancer Social History Smoking/Tobacco Use Status: Never Smoking risk assessment performed?: Yes Alcohol Intake: current Alcohol Intake frequency: holidays/special occasions only Alcohol type: beer and wine Drug use: Never Substance use type: does not use Adopted: No Caregiver/Support person: No Foster care: No Household members: spouse Housing: house Number of Children: 3 Communication Needs: None Do you need help understanding health information?: Never current occupation: [employer] Sexually active: Yes Do you think of yourself as: straight/heterosexual Current gender identity: female What type of physical activity do you participate in: walking Duration: 15-30 minutes/day Frequency: daily Seatbelt use: always Helmet use: Yes Drive intox or ride w/intox gas truck driver: No Working smoke detector in home: Yes Fire extinguisher in home: Yes Carbon monox detector in home: Yes Firearms in home: No Do you feel safe at home: Yes Do you feel safe in your relationship?: Yes Exam Narrative Exam Narrative: Constitutional: Alert and oriented x3. Appears stated age. Normal body habitus. Head: Normocephalic, no trauma. Eyes: Pupils PERRLA, EOM's intact. Eyelids symmetrical without lesions, discharge, or swelling. Chest: RRR, Normal S1, S2, distal pulses intact. Resp: Lungs clear to auscultation bilaterally, no wheezes, rales, or rhonchi. Musculoskeletal: Normal gait, patient has a dog bite to her second digit, puncture wound noted over the DIP, with some yellowish pus purulent discharge, also puncture wound noted to the palmar surface of her digit over the DIP. Decreased flexion of the index finger, erythema swelling warmth noted extending into the dorsum of her hand, and palmar surface. See musculoskeletal diagram below Hematologic/Lymphatic: No ecchymosis, no lymphadenopathy. Extrem Hand/finger images: 1. Puncture wound, swelling, yellowish discharge 2. Puncture wound #2, no discharge 3. Erythema 4. Erythema Course Vital Signs Vital signs: Vital Signs Temperature 36.4 C L 09/20/20 12:26 Pulse 70 09/20/20 12:26 Respiratory Rate 16 09/20/20 12:26 Blood Pressure 137/71 09/20/20 12:26 Pulse Oximetry 100 09/20/20 12:26 Temperature 36.4 C L 09/20/20 12:26 Pulse 70 09/20/20 12:26 Respiratory Rate 16 09/20/20 12:26 Blood Pressure 137/71 09/20/20 12:26 Blood Pressure Position Sitting 09/20/20 12:26 Pulse Oximetry 100 09/20/20 12:26 Oxygen Delivery Method Room Air 09/20/20 12:26 Oxygen Flow Rate 0 09/20/20 12:26 Pain Level 1 09/20/20 12:26 Lab/Test Results Lab/Test Results: 09/20/20 12:42 Blood Blood Culture - Pending 09/20/20 12:42 Blood Blood Culture - Pending
--- NOTE | 2020-09-20 13:06 | NUR.NOTE ---
Nursing Note: Spoke with health officer of [employer], Vance Glass and he is aware of the bite. I faxed the report to his place of work, [facility] at his request. Laya Vasquez
[2020-09-20 13:16] LABS: Lactate 0.7 mmol/L (0.6-1.4)
[2020-09-20 13:21] LABS: Abs Immature Grans 0.02 10^3/uL (0.0-0.06); Absolute Basophil Count 0.05 10^3/uL (0.0-0.2); Absolute Eosinophil Count 0.25 10^3/uL (0.0-0.7); Absolute Lymphocyte Count 1.79 10^3/uL (1.2-3.4); Absolute Monocyte Count 0.58 10^3/uL (0.1-0.8); Absolute Neutrophil Count 4.38 10^3/uL (1.2-6.7); Basophils % 0.7; Eosinophils % 3.5; HCT 42.5 % (36.0-46.0); HGB 13.7 g/dL (11.2-15.7); Immature Grans % 0.3; Lymphocytes % 25.3; MCH 28.2 pg (27.0-33.0); MCHC 32.2 % (32.0-36.0); MCV 87.6 fL (80-95); MPV 9.7 fL (8.0-11.0); Monocytes % 8.2; Nucleated RBC 0 %; Platelet Count 280 10^3/uL (130-400); RBC 4.85 10^6/uL (3.93-5.22); RDW 11.6 % (11.7-14.6); RDW-SD 37.3 fL; WBC 7.07 10^3/uL (4.4-10.8)
[2020-09-20 13:31] LABS: C-Reactive Protein 4.42 mg/dL (0.0-0.3)
[2020-09-20 13:35] LABS: ALT 23 U/L (14-59); AST 14 U/L (15-37); Albumin 3.9 g/dL (3.4-5.0); Alkaline Phosphatase 116 U/L (46-116); Anion Gap 10.8 mmol/L (3-11); BUN 25 mg/dL (7-18); Bilirubin, Total 0.4 mg/dL (0.2-1.0); CO2 26.2 mmol/L (21.0-32.0); Calcium 9.3 mg/dL (8.5-10.1); Chloride 104 mmol/L (98-107); Estimated GFR 56.75 (mL/min/1.73m2); Glucose 92 mg/dL (74-106); Sodium 141 mmol/L (136-145); Total Protein 8.3 g/dL (6.4-8.2)
[2020-09-20] MEDS: ceFAZolin 1 GM/50 ML BAG IVPB (13:41)
--- NOTE | 2020-09-20 13:41 | DI.RAD_ITS ---
EXAM: XR HAND LT COMPLETE CLINICAL HISTORY: Left 2nd digit dog bite, cellulitis TECHNIQUE: COMPARISON: No exams were available for comparison FINDINGS: Three views were obtained. There appears to be soft tissue swelling of the index finger. No underly ing bony abnormality seen to suggest the presence of fracture or osteomyelitis. No other bony abnorm ality seen involving hand. IMPRESSION: RADIATION DOSE DELIVERED: Total DLP
[2020-09-20] MEDS: AMPICILLIN/SULBACTAM 3 GM in Normal Saline 100 ML IVPB (14:05)
[2020-09-20 15:15] VITALS: BP 137/71; PULSE 70; RESP 16; TEMP 36.4; O2SAT 100
== END 2020-09-20 15:10 | disposition home or self-care (01) ==
PROVIDERS: Emergency Provider Registered Nurse Emergency; PCP Student in an Organized Health Care Education/Training Program
DX: L03.012 Cellulitis of left finger (principal); S61.251A Open bite of left index finger without damage to nail, initial encounter; W54.0XXA Bitten by dog, initial encounter
CPT/HCPCS: 80053; 87040; 96365; 96367; 99284; 73130; 83605; 85025; 86140; J0295; J0690

== ENCOUNTER 2020-10-13 15:51 | Outpatient (REF) | payer OTHER, SELFPAY ==
--- NOTE | 2020-10-13 15:10 | ENDO_PTH ---
PATIENT: Zayra Doll LOC: [facility] U#:[id number] AGE/SX: 59/F ROOM: RE10/13/[address]: Lakshmi Russell DO : 1960 BED: DIS: 10/13/2020 SPEC #: [id number] RECD: 10/13/20 17:04 STATUS: STEVEN REQ #: [id number] KOTA: 10/13/20 15:[address]: Lakshmi Russell DEPT: Surgical Specimen RECD BY: Heather Evans ENTERED: 10/13/20 17:05 SP TYPE: Endo OTHR DR: Estela Aguilar DO Tissues: 1 - ENDOCERVICAL BX/CURRETTE 2 - ENDOMETRIUM BX/CURRETTE Procedures: GROSS AND MICRO LEVEL 4 Comments: [id number]
== END 2020-10-13 15:52 | disposition home or self-care (01) ==
LOC: LBN 15:51
PROVIDERS: PCP Student in an Organized Health Care Education/Training Program; Visit Provider Obstetrics & Gynecology
DX: N84.1 Polyp of cervix uteri (principal); N85.8 Other specified noninflammatory disorders of uterus; N95.0 Postmenopausal bleeding
CPT/HCPCS: 88305

== ENCOUNTER 2020-10-16 09:12 | Outpatient (REF) | payer SELFPAY ==
[2020-10-16 22:23] LABS: COVID-19 RT-PCR UVMMC Result Negative (Negative)
--- NOTE | 2020-10-17 10:06 | NUR.NOTE ---
Called pt cell # to give covid results, no answer. voice mail box full, unable to leave message.
--- NOTE | 2020-10-18 16:32 | NUR.NOTE ---
Pt called to give covid results. no answer. Message left to please call back for test results.
--- NOTE | 2020-10-20 15:42 | NUR.NOTE ---
Nursing Note: Attempted to contact pt via phone, unable to reach regarding negative covid results. Results sent to patient in mail to address on file.
== END 2020-10-16 09:19 ==
LOC: ER 09:12
PROVIDERS: Student in an Organized Health Care Education/Training Program; PCP Student in an Organized Health Care Education/Training Program
DX: Z20.822 Contact with and (suspected) exposure to COVID-19
CPT/HCPCS: 99281; U0003

== ENCOUNTER 2021-05-16 03:27 | Outpatient (CLI) | payer OTHER, SELFPAY ==
[2021-05-16 12:20] LABS: Source Nasal/Nares
[2021-05-16 18:50] LABS: COVID-19 PCR Negative (Negative)
== END 2021-05-16 03:28 | disposition home or self-care (01) ==
LOC: LBO 03:27
PROVIDERS: PCP Student in an Organized Health Care Education/Training Program; Visit Provider Obstetrics & Gynecology
DX: Z20.822 Contact with and (suspected) exposure to COVID-19 (principal); Z01.818 Encounter for other preprocedural examination
CPT/HCPCS: 87635

== ENCOUNTER 2021-05-16 03:32 | Outpatient (CLI) | payer OTHER, SELFPAY ==
[2021-05-16 09:25] LABS: Abs Immature Grans 0.03 10^3/uL (0.0-0.06); Absolute Basophil Count 0.04 10^3/uL (0.0-0.2); Absolute Eosinophil Count 0.14 10^3/uL (0.0-0.7); Absolute Lymphocyte Count 2.02 10^3/uL (1.2-3.4); Absolute Monocyte Count 0.55 10^3/uL (0.1-0.8); Absolute Neutrophil Count 4.22 10^3/uL (1.2-6.7); Basophils % 0.6; HCT 41.4 % (36.0-46.0); HGB 13.6 g/dL (11.2-15.7); Immature Grans % 0.4; Lymphocytes % 28.9; MCH 28.5 pg (27.0-33.0); MCHC 32.9 % (32.0-36.0); MCV 86.8 fL (80-95); MPV 9.7 fL (8.0-11.0); Monocytes % 7.9; Neutrophils % 60.2; Nucleated RBC 0 %; Platelet Count 276 10^3/uL (130-400); RBC 4.77 10^6/uL (3.93-5.22); RDW 12.6 % (11.7-14.6); RDW-SD 39.9 fL
== END 2021-05-16 03:33 | disposition home or self-care (01) ==
LOC: LBO 03:32
PROVIDERS: PCP Student in an Organized Health Care Education/Training Program; Visit Provider Obstetrics & Gynecology
DX: N85.8 Other specified noninflammatory disorders of uterus (principal); R10.2 Pelvic and perineal pain; Z80.41 Family history of malignant neoplasm of ovary; Z01.818 Encounter for other preprocedural examination; Z01.812 Encounter for preprocedural laboratory examination
CPT/HCPCS: 36415; 86850; 86900; 86901; 85025

== ENCOUNTER 2021-05-18 06:11 | Day surgery (SDC) | payer OTHER, SELFPAY ==
--- NOTE | 2021-05-17 14:33 | W.ANESPRE ---
General Info Date of Service Date Performed: 05/18/21 Height: 5 ft 4 in Weight: 87.543 kg Body Mass Index (BMI): 33.1 Surgical Procedure: Operation Date: 05/18/21 07:40 Proposed Procedures Side Surgeon p Dilation & Curettage with Hysteroscopy/MYOSURE Lakshmi Russell DO Meds Allergies and Home Medications Allergies Allergy/AdvReac Type Severity Reaction Status Date / Time No Known Allergies Allergy Verified 05/18/21 06:39 Home Medication Medication Instructions Recorded ascorbate calcium (vitamin C) 500 See Rx Instructions PO DAILY 12/18/19 mg tablet calcium carb-magnesium carb 250 2 tab PO DAILY tab 12/18/19 mg-300 mg tablet mecobalamin (vitamin B12) 1,000 1,000 mcg SL DAILY 12/18/19 mcg disintegrating tablet,sublingual cholecalciferol (vitamin D3) 05/18/21 [Vitamin D3] Current Visit Medications: Current Medications Generic Name Dose Route Start Last Admin Trade Name Freq PRN Reason Stop Dose Admin Ringer's Solution 1,000 mls @ 125 mls/hr 05/18/21 06:00 IV 06/16/21 23:59 INFUSION FLORY IV Miscellaneous Supplies 1 each 05/18/21 06:00 Iv Access IV 06/16/21 23:59 DIRECTED FLORY Sodium Chloride 0 ml 05/18/21 06:00 Normal Saline Flush 10 Ml Syr IV 06/16/21 23:59 PRN PRN Sodium Chloride 0 ml 05/18/21 06:00 Normal Saline 10 Ml Vial IJ 06/16/21 23:59 DIRECTED PRN Sterile Water 0 ml 05/18/21 06:00 Water,Injection,Sterile 10 Ml Vial IJ 06/16/21 23:59 DIRECTED PRN PFSH Active Problems Active Problems: Problem Status Onset Code Abnormal ultrasound R93.89 Pelvic pain R10.2 Ovarian cyst, right N83.201 Infected dog bite of hand including fingers S61.459A, S61.259A, L08.9, W54.0XXA Laceration Cellulitis L03.90 Dog bite W54.0XXA Cervical polyp N84.1 Well woman exam with routine gynecological exam Z01.419 Asymmetric tonsils J35.8 Abnormal auditory perception H93.299 Sensorineural hearing loss of both ears H90.3 Tingling in extremities R20.2 Family history of cardiovascular disease Z82.49 Encounter for screening for other viral diseases Z11.59 Hx of viral illness Z86.19 Tinnitus H93.19 Family hx of colon cancer Z80.0 Family history of ovarian cancer Z80.41 Family history of breast cancer Z80.3 Osteoporosis M81.0 Acute bronchitis J20.9 Chest congestion R09.89 Medical History Medical History Abnormal ultrasound Cervical polyp Family history of breast cancer Family history of cardiovascular disease Family history of ovarian cancer Family hx of colon cancer [place] (2002)(42yo) [ ] Rpt Hx of viral illness Possible COVID19 .. late Jul travel, followed by terrible flu-like illness with significant chest discomfort/SOB. No significant past medical history Osteoporosis Based on ankle tamar, hip U/S. Fam Hx (Grand mo kyphosis). Improved diet, no bisphosph. [ ] DEXA Ovarian cyst, right Pelvic pain Tinnitus Well woman exam with routine gynecological exam Surgical History Surgical History History of breast surgery History of right breast biopsy (~2009) Calcifications Tobacco Smoking/Tobacco Use Status: Never Alcohol Alcohol Intake: current Alcohol intake frequency: holidays/special occasions only Alcohol type: beer and wine Substance Use Substance use: Never Substance use type: does not use Vital Signs and Lab Results Vital Signs Most Recent Vital Signs in EMR: Temp Pulse Resp BP Pulse Ox 36.3 C L 72 18 121/77 99 05/18/21 06:21 05/18/21 06:21 05/18/21 06:21 05/18/21 06:21 05/18/21 06:21 Lab Results Blood Type / Crossmatch: Patient ABO/Rh O Negative 05/16/21 09:07 05/16/21 Antibody Screen NEGATIVE 05/16/21 09:07 05/16/21 Complete Blood Count: White Blood Count 7.00 10^3/uL (4.4-10.8) 05/16/21 09:07 05/16/21 Red Blood Count 4.77 10^6/uL (3.93-5.22) 05/16/21 09:07 05/16/21 Hemoglobin 13.6 g/dL (11.2-15.7) 05/16/21 09:07 05/16/21 Hematocrit 41.4 % (36.0-46.0) 05/16/21 09:07 05/16/21 Platelet Count 276 10^3/uL (130-400) 05/16/21 09:07 05/16/21 Complete Metabolic Panel: No Data to Display Liver Function Panel: No Data to Display Coagulation Panel: No Data to Display Cardiac Panel: No Data to Display Arterial Blood Gas: No Data to Display Venous Blood Gas: No Data to Display Pancreas Panel: No Data to Display Thyroid Panel: No Data to Display Infectious Disease: Coronavirus (COVID-19)(PCR) Negative (Negative) 05/16/21 10:50 05/16/21 Coronavirus 2019 Source Nasal/Nares 05/16/21 10:50 05/16/21 Blood Cultures: No Data to Display Toxicology Panel: No Data to Display Anesthesia Assessment and Plan Anesthesia History Personal History: No History of Anesthesia Complications Family History: No Family History of Anesthesia Complications Exercise Tolerance Exercise Tolerance: Metabolic Equivalents>4 Cardiac & Pulmonary Exam Cardiac Exam: Normal S1/S2 Heart Sounds Pulmonary Exam: Clear Bilateral Breath Sounds Airway Exam Known Difficult Airway: No Mallampati Class: 2 Mouth Opening: Normal (> 3cm) Thyromental Distance: Greater than 3 cm Neck Range of Motion: Full ROM Neck Circumference: Normal Teeth Condition: Normal Dentition ASA Classification ASA Score: ASA 2 Emergency Case?: No NPO Status NPO Status: NPO Clears >2 hours, Solids >8 hours Anesthesia Plan Resuscitation Status: Full Code Anesthesia Technique: General Anesthesia Airway Planned: Natural Airway Monitors Used: Standard Monitors Preoperative Comments:: 60 yo female for hysteroscopy. No sig PMHx, never smoker, occ EtOH.
[2021-05-18 06:21] VITALS: BP 121/77; PULSE 72; RESP 18; TEMP 36.3; O2SAT 99
[2021-05-18 07:00] VITALS: BMI 33.1
[2021-05-18] MEDS: Lactated Ringers 1,000 ML 125 ML IV (07:01)
--- NOTE | 2021-05-18 08:05 | ENDOMET_PTH ---
PATIENT: Zayra Doll LOC: [facility] U#:[id number] AGE/SX: 60/F ROOM: RE05/18/[address]: Lakshmi Russell DO : 1960 BED: DIS: 05/18/2021 SPEC #: [id number] RECD: 05/18/21 12:45 STATUS: STEVEN REQ #: [id number] KOTA: 05/18/21 08:[address]: Lakshmi Russell DEPT: Surgical Specimen RECD BY: Heather Evans ENTERED: 05/18/21 12:47 SP TYPE: Endomet OTHR DR: Estela Aguilar DO Tissues: 1 - ENDOMETRIUM BX/CURRETTE 2 - ENDOCERVICAL BX/CURRETTE 3 - ENDOMETRIUM BX/CURRETTE Procedures: GROSS AND MICRO LEVEL 4 Comments: [id number]
[2021-05-18 08:14] VITALS: BP 98/57; PULSE 59; RESP 16; TEMP 36; O2SAT 95
--- NOTE | 2021-05-18 08:17 | W.PM.OP ---
Date of service: 05/18/21 Time of Service: 08:17 Operative Note Operative Note DATE OF PROCEDURE: 05/18/21 PRE-OP DIAGNOSIS: Abnormal endometrium PROCEDURE: Hysteroscopy with dilation and curettage, uterine polypectomy with MyoSure SURGEON: Lakshmi Russell ANESTHESIA TYPE: MAC Refer to Anesthesia Record ESTIMATED BLOOD LOSS: 5 PATHOLOGY: other (1. Endometrial polyp 2. Endocervical curetting 3. Endometrial curetting) COMPLICATIONS: None Patient was transported to: same day Indications: Abnormal endometrium Findings: Smooth regular endometrium. 4 mm polyp in the posterior lower uterine segment, removed Procedure Description: Patient was taken the operating room with an IV running. She is placed in dorsal supine position and anesthesia administered via monitored anesthesia care. She was then placed in the modified dorsolithotomy position and prepped and draped in the usual sterile fashion. Citrate cath was used to drain approximately 50 cc of clear yellow urine. Exam under anesthesia revealed a uterus that was midline and mobile without evidence of adnexal mass. At this point speculum was placed into the vaginal vault and a single-tooth tenaculum used to grasp the anterior lip of the cervix. Cervical os dilated to the point that a five-point millimeter operative MyoSure device could be placed within. With infiltration of normal saline the entire endometrial cavity was inspected. Cavity appeared smooth, regular, and atrophic with a 4 mm polyp at the posterior lower uterine segment. The MyoSure device was used to operatively resect the polyp and that was sent for pathology. At this point the hysteroscope portion of the procedure was terminated and a sharp endocervical curettage was performed followed by a sharp endometrial curettage. At this point tenaculum was removed as was speculum and tenaculum site was found to be hemostatic. Patient was returned to the dorsal supine position and awoke from anesthesia with ease. Fluid deficit was 0. EBL: 5 mm Pathology: 1. Endometrial polyp 2. Endocervical curetting 3. Endometrial curetting Complications: None apparent Fluid deficit: 0
[2021-05-18 08:50] VITALS: BP 103/69; PULSE 52; RESP 16; TEMP 36.3; O2SAT 98
--- NOTE | 2021-05-18 09:36 | W.ANESPOSTOP ---
Postoperative Evaluation Date, Time and Location Date Performed: 05/18/21 Time Performed: 08:50 Patient Location: Day Surgery Unit Vital Signs Most Recent Imported Vital Signs: Most Recent Vital Signs Temp Pulse Resp BP Pulse Ox 36.3 C L 52 L 16 103/69 98 05/18/21 08:50 05/18/21 08:50 05/18/21 08:50 05/18/21 08:50 05/18/21 08:50 Pain Score Most Recent Pain Score: Most Recent Pain Score Pain Level 1 05/18/21 08:50 Assessment Mental Status: Awake (Alert & Oriented to Patient Baseline) Airway and Respiratory Function: Patent airway with normal (patient baseline) respiratory exam Cardiovascular Function: Hemodynamically Stable Hydration Status: Adequately Hydrated Nausea & Vomiting: No Nausea or Vomiting Pain: Pain is tolerable per patient Peripheral Nerve Block: Patient did not receive a nerve block
== END 2021-05-18 09:34 | disposition home or self-care (01) ==
PROVIDERS: PCP Student in an Organized Health Care Education/Training Program; Visit Provider Obstetrics & Gynecology
PROC: 0UDB8ZZ Extraction of Endometrium, Via Natural or Artificial Opening Endoscopic (ICD-10-PCS; CPT 58558; principal; 2021-05-18 07:30)
DX: N84.0 Polyp of corpus uteri (principal); R93.89 Abnormal findings on diagnostic imaging of other specified body structures
CPT/HCPCS: 58558; 88305; J1100; J1885; J2001; J2405; J2704

== ENCOUNTER 2021-05-31 00:57 | Outpatient (CLI) | payer OTHER, SELFPAY ==
--- NOTE | 2021-05-31 07:45 | DI.MAMMO_ITS ---
Exam(s) MAMMO SCREENING EXAM: MAMMO SCREENING CLINICAL HISTORY: screening,Z12.39. TECHNIQUE: Bilateral full field digital CC and MLO mammographic images were obtained with 3D tomosyn thesis and utilizing computer aided detection (CAD). COMPARISON: Prior mammograms dating back to 2011, the most recent being September 2019. Family history. Her mother was diagnosed with breast cancer FINDINGS: Fibroglandular tissue pattern is moderately dense. In the central left breast there is a group of microcalcifications which remains unchanged from all p rior mammograms. There are no new spiculated masses nor new malignant appearing microcalcification groups. There is no significant architectural distortion nor skin thickening-retraction. IMPRESSION: No radiographic evidence of malignancy. Stable benign findings BI-RADS Category 2 - Benign Findings Breast Density - Category C - Heterogeneously dense Breast density Category C or D implies that the patient has dense breast tissue. Dense breast tissue can make it harder to find cancer on a mammogram. Dense breast tissue is also associated with an incr eased risk of breast cancer. This information about the result of the mammogram report was provided to the patient to raise their awareness. Use this report when you speak with the patient about their risks for breast cancer, which includes their family history. At that time, you may recommend additional screening tests (Ultrasoun d or MRI) as these tests may add significant information. A negative radiographic report should not delay biopsy if a dominant or clinically suspicious mass is present. Up to ten percent of cancers are not identified on mammography. A negative report may reinforce clinical impression. Adenosis and dense breasts may obscure an underlying neoplasm. False positive reports average 6 to 10%. Patient will receive a letter notifying them of these results.
== END 2021-05-31 01:17 ==
PROVIDERS: PCP Student in an Organized Health Care Education/Training Program; Visit Provider Student in an Organized Health Care Education/Training Program
DX: Z12.31 Encounter for screening mammogram for malignant neoplasm of breast (principal)
CPT/HCPCS: 77063; 77067

== ENCOUNTER 2021-06-18 15:12 | Outpatient (REF) | payer OTHER, SELFPAY ==
[2021-06-18 14:24] LABS: Source Nasal/Nares
[2021-06-18 15:56] LABS: COVID-19 PCR Negative (Negative)
== END 2021-06-18 15:13 | disposition home or self-care (01) ==
LOC: LBN 15:12
PROVIDERS: PCP Student in an Organized Health Care Education/Training Program; Visit Provider Family Medicine
DX: Z20.822 Contact with and (suspected) exposure to COVID-19 (principal)
CPT/HCPCS: 87635

== ENCOUNTER 2021-07-22 13:44 | Outpatient (REF) | payer OTHER, SELFPAY ==
[2021-07-24 02:14] LABS: COVID-19 RT-PCR UVMMC Result Negative (Negative)
== END 2021-07-22 13:45 | disposition home or self-care (01) ==
LOC: LBN 13:44
PROVIDERS: PCP Student in an Organized Health Care Education/Training Program; Visit Provider Physician Assistant Medical
DX: Z20.822 Contact with and (suspected) exposure to COVID-19 (principal)
CPT/HCPCS: U0003

== ENCOUNTER 2021-07-28 14:50 | Outpatient (REF) | payer OTHER, SELFPAY ==
[2021-07-28 21:40] LABS: COVID-19 RT-PCR UVMMC Result Negative (Negative)
== END 2021-07-28 14:51 | disposition home or self-care (01) ==
LOC: LBO 14:50
PROVIDERS: PCP Student in an Organized Health Care Education/Training Program; Visit Provider Student in an Organized Health Care Education/Training Program
DX: Z20.822 Contact with and (suspected) exposure to COVID-19 (principal)
CPT/HCPCS: U0003

== ENCOUNTER 2021-10-27 15:53 | Outpatient (REF) | payer OTHER, SELFPAY ==
[2021-10-29 12:13] LABS: COVID-19 RT-PCR UVMMC Result Negative (Negative)
== END 2021-10-27 15:54 | disposition home or self-care (01) ==
LOC: LBN 15:53
PROVIDERS: PCP Student in an Organized Health Care Education/Training Program; Visit Provider Nurse Practitioner Family
DX: Z20.822 Contact with and (suspected) exposure to COVID-19 (principal)
CPT/HCPCS: U0003

== ENCOUNTER 2021-11-03 09:40 | Outpatient (REF) | payer OTHER, SELFPAY | END 2021-11-03 09:41 | disposition home or self-care (01) | LOC: LBN 09:40 | PROVIDERS: PCP Student in an Organized Health Care Education/Training Program; Visit Provider Nurse Practitioner Family ==

== ENCOUNTER 2022-04-02 09:06 | Outpatient (REF) | payer OTHER, SELFPAY ==
[2022-04-02 09:38] LABS: ALT 24 U/L (14-59); AST 25 U/L (15-37); Albumin 3.8 g/dL (3.4-5.0); Alkaline Phosphatase 114 U/L (46-116); Anion Gap 7.5 mmol/L (3-11); BUN 16 mg/dL (7-18); Bilirubin, Total 0.6 mg/dL (0.2-1.0); CO2 29.5 mmol/L (21.0-32.0); CREATININE 0.8 mg/dL (0.55-1.02); Calcium 9.1 mg/dL (8.5-10.1); Calculated LDL 131 mg/dL (<100); Chloride 104 mmol/L (98-107); Cholesterol 231 mg/dL (<200); Estimated GFR 83.78 (mL/min/1.73m2); Glucose 91 mg/dL (74-106); HDL Cholesterol 77 mg/dL (40-60); Potassium 4.3 mmol/L (3.5-5.1); Sodium 141 mmol/L (136-145); Triglyceride 117 mg/dL (<150)
== END 2022-04-02 09:07 | disposition home or self-care (01) ==
LOC: LBO 09:06
PROVIDERS: PCP Student in an Organized Health Care Education/Training Program; Visit Provider Nurse Practitioner
DX: Z13.220 Encounter for screening for lipoid disorders (principal)
CPT/HCPCS: 36415; 80053; 80061

== ENCOUNTER 2022-04-12 10:33 | Day surgery (SDC) | payer OTHER, SELFPAY ==
--- NOTE | 2022-04-12 09:02 | PDOC.DSDIS_ITS ---
Discharge Plan Disposition Patient Disposition: HOME Condition: Good Discharge Details Reason For Visit: colon scope Attending Provider: Aiyana Ureña Primary Care Provider: Estela Aguilar Home Meds and New Rx's Prescriptions: Continued mecobalamin (vitamin B12) 1,000 mcg tablet,disintegrating 1,000 mcg SL DAILY Rx Instructions: place tablet under tongue and allow to dissolve for at least30 secs before swallowing ascorbate calcium (vitamin C) 500 mg tablet See Rx Instructions PO DAILY Rx Instructions: 1004-5631 mg PO daily; calcium carb-magnesium carb 250-300 mg tablet 2 tab PO DAILY Rx Instructions: administer with meals cholecalciferol (vitamin D3) [Vitamin D3] 25 mcg (1,000 unit) Tablet 1,000 unit PO DAILY Label Comments: Pt dose unknown, just started it.HE ibuprofen 800 mg tablet 800 mg PO Q8H PRNQty: 30 0RF Discharge Instructions Additional Instructions: DSU Colonoscopy Post- Op Instructions Instructions for Everyone who is given Anesthesia: For your safety, please do the following for the next twenty-four (24) hours: *Do Not operate a motor vehicle (car, truck, motorcycle, etc.) *Do Not drink alcoholic beverages or use any recreational drugs for the first 24 hours or while taking pain medications. The medications in your body may have a reaction that can be dangerous. *Do Not make any important decisions or sign any important papers. Findings: Normal. no diverticula. Nothing intrinsic in the colon that would be causing pain Follow up: Repeat in 10 yrs time 1. No lifting over 20 pounds or strenuous activity for the first 24 hours after your procedure. After 24 hours there are no restrictions on your activity but you may feel fatigued for a few days. 2. After you arrive home you may have a light meal and return to your normal diet as you can tolerate it without feeling sick to your stomach. 3. You may have a bloated, gaseous feeling in your belly (abdomen) after a colonoscopy. Passing gas and belching will help. Walking or lying down on your l eft side with your knees flexed may relieve the discomfort. Call the office at [phone] (Office) or [phone] (Hospital) right away if you notice any of the following: a.Vomiting of blood or ?coffee ground stools?. b.Rectal bleeding 1Tbsp, blood clots or continuous bleeding. c.Severe belly (abdominal) pain. d.A hard distended belly (abdomen) and an inability to pass gas. 4. Please don?t expect to have a normal BM (bowel movement) for 2-3 days after your procedure. 5. If there are questions regarding the findings of your procedure, please contact your doctor 6. If you are unable to contact your doctor with a problem, contact the hospital at [phone]. 7. Continue all your regular medications unless directed otherwise. I understand the above instructions and have no questions. Signature of Patient or Adult Escort Name of Responsible Adult Escort Signature of Nurse Date/Time Activity:: see above Diet:: see above Discharge Orders Discharge Orders: Discharge Order (Routine); Ordered 04/12/22 Ordered By: Aiyana Ureña
--- NOTE | 2022-04-12 09:02 | W.COLOREPORT ---
Colonoscopy Report Date of procedure: 04/12/22 Pre-op diagnosis general: screen/LLQ pain Surgeon: Aiyana Ureña Anesthesia Type: General:No Airway Estimated blood loss (mL): 0 Pathology: none sent Complications: None Disposition: same day Prep: Miralax/Dulcolax Procedure Description: After informed consent was obtained the patient was taken to the procedure room and placed in a left decubitous position. Monitors were applied and a time out was done. The patients name, date of , procedure, allergies to medications and metal in their body was reviewed. The patient was then sedated. Once sedated and comfortable a rectal exam was done. External exam was normal. Internal exam revealed a normal sphincter tone and no palpable masses. The scope was then introduced and retrofelexed. No internal hemorrhoids were identified. The scope was then advanced to the cecum w/out difficulty. The TI and appendiceal orifice were identified. The prep was BBPS 2 in all segments for a total of 6. The scope was then slowly retracted over 8 minutes back into the rectum. There are no polyps, AVMs, or diverticula visualized today. The mucosa is pink and healthy with a normal vascular pattern. The colon flows very nicely and there does not appear to be any extrinsic restrictions. And this is a very normal exam today. The scope was removed and the patient was woken up and taken back to Same day surgery in stable condition. The patient tolerated the procedure well and there were no immediate complications. Follow up: The patient should follow up in 10 years unless they develop changes in bowel habits or other new gastrointestinal complaints.
[2022-04-12 11:06] VITALS: BP 130/87; PULSE 74; RESP 15; TEMP 36.6; O2SAT 99
--- NOTE | 2022-04-12 12:42 | ANES.PREOP_ITS ---
General Info Date of Service Date Performed: 04/12/22 Height: 5 ft 4 in Weight: 87 kg Body Mass Index (BMI): 32.9 Surgical Procedure: Operation Date: 04/12/22 12:50 Proposed Procedure Side Surgeon snato Ureña DO Meds Allergies and Home Medications Allergies Allergy/AdvReac Type Severity Reaction Status Date / Time No Known Allergies Allergy Verified 04/12/22 11:01 Home Medication Medication Instructions Recorded ascorbate calcium (vitamin C) 500 See Rx Instructions PO DAILY 12/18/19 mg tablet calcium carb-magnesium carb 250 2 tab PO DAILY 12/18/19 mg-300 mg tablet mecobalamin (vitamin B12) 1,000 1,000 mcg sublingual DAILY 12/18/19 mcg disintegrating tablet,sublingual cholecalciferol (vitamin D3) 25 1,000 unit PO DAILY 05/18/21 mcg (1,000 unit) tablet (Vitamin D3) ibuprofen 800 mg tablet 800 mg PO Q8H PRN #30 tabs 05/18/21 Current Visit Medications: Current Medications Generic Name Dose Route Start Last Admin Trade Name Purvi PRN Reason Stop Dose Admin Hyoscyamine Sulfate 0.125 mg 04/12/22 09:00 Hyoscyamine 0.125 Mg Sl/Oral/Chew SL DIRECTED PRN Ringer's Solution 1,000 mls @ 80 mls/hr 04/12/22 06:00 IV 05/11/22 23:59 INFUSION [facility] IV Miscellaneous Supplies 1 each 04/12/22 06:00 Iv Access IV 05/11/22 23:59 DIRECTED FLORY Ondansetron HCl 4 mg 04/12/22 09:00 Ondansetron 4 Mg/2 Ml Vial IVP Q4H PRN PRN Nausea / Vomiting Sodium Chloride 0 ml 04/12/22 06:00 Normal Saline Flush 10 Ml Syr IV 05/11/22 23:59 PRN PRN Sodium Chloride 0 ml 04/12/22 06:00 Normal Saline 10 Ml Vial IJ 05/11/22 23:59 DIRECTED PRN Sterile Water 0 ml 04/12/22 06:00 Water,Injection,Sterile 10 Ml Vial IJ 05/11/22 23:59 DIRECTED PRN PFSH Active Problems Active Problems: Problem Status Onset Code Acute bronchitis J20.9 Chest congestion R09.89 Osteoporosis M81.0 Family history of breast cancer Z80.3 Family history of ovarian cancer Z80.41 Family hx of colon cancer Z80.0 Tinnitus H93.19 Hx of viral illness Z86.19 Encounter for screening for other viral diseases Z11.59 Family history of cardiovascular disease Z82.49 Tingling in extremities R20.2 Sensorineural hearing loss of both ears H90.3 Abnormal auditory perception H93.299 Asymmetric tonsils J35.8 Well woman exam with routine gynecological exam Z01.419 Cervical polyp N84.1 Dog bite W54.0XXA Cellulitis L03.90 Laceration Infected dog bite of hand including fingers S61.459A, S61.259A, L08.9, W54.0XXA Ovarian cyst, right N83.201 Pelvic pain R10.2 Abnormal ultrasound R93.89 Status post dilation and curettage Z98.890 LLQ pain R10.32 Medical History Medical History No significant past medical history Surgical History Surgical History (Updated 04/12/22 @ 10:59 by Kalie Palacios) History of breast surgery History of right breast biopsy (~2009) Calcifications Hx of colonoscopy Tobacco Smoking/Tobacco Use Status: Never Alcohol Alcohol Intake: current Alcohol intake frequency: holidays/special occasions only Alcohol type: beer and wine Substance Use Substance use: Never Substance use type: does not use Vital Signs and Lab Results Vital Signs Most Recent Vital Signs in EMR: Most Recent Vital Signs Temp Pulse Resp BP Pulse Ox 36.6 C 74 15 130/87 99 04/12/22 11:06 04/12/22 11:06 04/12/22 11:06 04/12/22 11:06 04/12/22 11:06 Lab Results Blood Type / Crossmatch: No Data to Display Complete Blood Count: No Data to Display Complete Metabolic Panel: Sodium Level 141 mmol/L (136-145) 04/02/22 09:00 Potassium Level 4.3 mmol/L (3.5-5.1) 04/02/22 09:00 Chloride Level 104 mmol/L (98-107) 04/02/22 09:00 Carbon Dioxide Level 29.5 mmol/L (21.0-32.0) 04/02/22 09:00 Blood Urea Nitrogen 16 mg/dL (7-18) 04/02/22 09:00 Creatinine 0.8 mg/dL (0.55-1.02) 04/02/22 09:00 Calcium Level 9.1 mg/dL (8.5-10.1) 04/02/22 09:00 Albumin 3.8 g/dL (3.4-5.0) 04/02/22 09:00 Glucose Level 91 mg/dL (74-106) 04/02/22 09:00 Liver Function Panel: Alanine Aminotransferase (ALT/SGPT) 24 U/L (14-59) 04/02/22 09: 00 Aspartate Amino Transf (AST/SGOT) 25 U/L (15-37) 04/02/22 09:00 Coagulation Panel: No Data to Display Cardiac Panel: No Data to Display Arterial Blood Gas: No Data to Display Venous Blood Gas: No Data to Display Pancreas Panel: No Data to Display Thyroid Panel: No Data to Display Infectious Disease: No Data to Display Blood Cultures: No Data to Display Toxicology Panel: No Data to Display Anesthesia Assessment and Plan Anesthesia History Personal History: No History of Anesthesia Complications and Other Family History: No Family History of Anesthesia Complications Exercise Tolerance Exercise Tolerance: Metabolic Equivalents>4 Pertinent Negatives Pertinent Negatives: No Symptoms of GERD, No Major Cardiovascular Symptoms or Complaints, No Major Pulmonary Symptoms or Complaints and No History of CVA/TIA Cardiac & Pulmonary Exam Cardiac Exam: Normal S1/S2 Heart Sounds Pulmonary Exam: Clear Bilateral Breath Sounds Implantable Cardiac Device Does patient have a Pacemaker or an ICD?: No Airway Exam Known Difficult Airway: No Mallampati Class: 2 Mouth Opening: Normal (> 3cm) Thyromental Distance: Greater than 3 cm Neck Range of Motion: Full ROM Neck Circumference: Normal Teeth Condition: Normal Dentition Airway Comments: #12 #11 #21 #22 lars ASA Classification ASA Score: ASA 2 Emergency Case?: No NPO Status NPO Status: NPO Clears >2 hours, Solids >8 hours Anesthesia Plan Resuscitation Status: Full Code Anesthesia Technique: General Anesthesia Airway Planned: Natural Airway Monitors Used: Standard Monitors
[2022-04-12 12:45] VITALS: BMI 32.9
[2022-04-12] MEDS: Lactated Ringers 1,000 ML 80 ML IV (12:51)
[2022-04-12 13:30] VITALS: BP 115/74; PULSE 67; RESP 16; TEMP 36.3; O2SAT 98
--- NOTE | 2022-04-12 13:30 | W.ANESPOSTOP ---
Postoperative Evaluation Date, Time and Location Date Performed: 04/12/22 Time Performed: 13:31 Patient Location: Day Surgery Unit Vital Signs Most Recent Imported Vital Signs: Most Recent Vital Signs Temp Pulse Resp BP Pulse Ox 36.6 C 74 15 130/87 99 04/12/22 11:06 04/12/22 11:06 04/12/22 11:06 04/12/22 11:06 04/12/22 11:06 Most Recent Manually Entered Vital Signs: Adult Blood Pressure: 115/74 Heart Rate: 64 Respirations: 16 Oxygen Saturation (%): 99 Temperature (C): 36.3 C Pain Score (0-10 Scale): 0 Pain Score Most Recent Pain Score: Most Recent Pain Score Pain Level 0 04/12/22 11:06 Assessment Mental Status: Awake (Alert & Oriented to Patient Baseline) Airway and Respiratory Function: Patent airway with normal (patient baseline) respiratory exam Cardiovascular Function: Hemodynamically Stable Hydration Status: Adequately Hydrated Nausea & Vomiting: No Nausea or Vomiting Pain: Pt. Denies Any Pain Peripheral Nerve Block: Patient did not receive a nerve block
[2022-04-12 13:31] VITALS: BP 115/74; PULSE 64; RESP 16; TEMPC 36.3; O2SAT 99
[2022-04-12 14:00] VITALS: BP 119/76; PULSE 55; RESP 16; TEMP 36.2; O2SAT 100
== END 2022-04-12 14:30 | disposition home or self-care (01) ==
PROVIDERS: PCP Student in an Organized Health Care Education/Training Program; Visit Provider Surgery
PROC: 0DJD8ZZ Inspection of Lower Intestinal Tract, Via Natural or Artificial Opening Endoscopic (ICD-10-PCS; CPT 45378; principal; 2022-04-12 12:45)
DX: Z12.11 Encounter for screening for malignant neoplasm of colon (principal); Z80.0 Family history of malignant neoplasm of digestive organs
CPT/HCPCS: 45378

== ENCOUNTER → 2022-06-06 02:19 | Outpatient (CLI) | payer OTHER, SELFPAY ==
--- NOTE | 2022-06-06 15:05 | DI.MAMMO_ITS ---
Exam(s) MAMMO SCREENING EXAM: MAMMO SCREENING CLINICAL HISTORY: screening,z12.39 TECHNIQUE: Mammograms were interpreted according to the usual protocol including computer analysis w [employer] CAD system, tomosynthesis and C-view imaging. COMPARISON: 2013 through 2020 FINDINGS: The breasts are composed of heterogeneously dense fibroglandular densities, Breast Density category C . No suspicious masses or suspicious microcalcifications are seen. Stable benign-appearing calcificati ons are noted in the left breast. No skin thickening or abnormal axillary lymph nodes are seen. There has been no significant change from prior exams. IMPRESSION: BI-RADS Cat 2 - Benign Findings Yearly screening mammography is recommended. Breast Density Category C, heterogeneously Dense. The mammogram demonstrates the patient's breast tissue is dense. Dense breast tissue is very common a nd is not abnormal but dense breast tissue can make it harder to find cancer on a mammogram. Also, de nse breast tissue may increase breast cancer risk. This information about the result of the mammogram report was provided to the patient to raise their awareness. Use this report when you speak with the patient about their risks for breast cancer, which includes their family history. At that time, you may recommend additional screening tests (Ultrasound or MRI) as they might be useful based on their r isk. A negative radiographic report should not delay biopsy if a dominant or clinically suspicious mass is present. Up to ten percent of cancers are not identified on mammography. A negative report may reinforce clinical impression. Adenosis and dense breasts may obscure an underlying neoplasm. False positive reports average 6 to 10%.
== END ==
PROVIDERS: PCP Student in an Organized Health Care Education/Training Program; Visit Provider Obstetrics & Gynecology
DX: Z12.31 Encounter for screening mammogram for malignant neoplasm of breast (principal); R92.8 Other abnormal and inconclusive findings on diagnostic imaging of breast
CPT/HCPCS: 77063; 77067

== ENCOUNTER 2022-06-15 10:27 | Emergency (ER) | payer OTHER, SELFPAY ==
[2022-06-15 10:54] VITALS: BP 142/84; PULSE 73; TEMP 36.3; O2SAT 99
--- NOTE | 2022-06-15 11:04 | W.ED.GENAD ---
Discharge Plan Disposition Patient Disposition: Home Condition: Improving Discharge Details Clinical Impression: Kidney stone Primary Care Provider: Estela Aguilar ED Provider: Phu Puckett Home Meds and New Rx's Prescriptions: New ondansetron 4 mg tablet,disintegrating 4 mg PO Q6H PRNQty: 20 0RF oxycodone 5 mg capsule 5 mg PO Q6H PRNQty: 10 0RF No Action mecobalamin (vitamin B12) 1,000 mcg tablet,disintegrating 1,000 mcg SL DAILY Rx Instructions: place tablet under tongue and allow to dissolve for at least30 secs before swallowing ascorbate calcium (vitamin C) 500 mg tablet See Rx Instructions PO DAILY Rx Instructions: 8332-5849 mg PO daily; calcium carb-magnesium carb 250-300 mg tablet 2 tab PO DAILY Rx Instructions: administer with meals cholecalciferol (vitamin D3) [Vitamin D3] 25 mcg (1,000 unit) Tablet 1,000 unit PO DAILY Label Comments: Pt dose unknown, just started it.HE ibuprofen 800 mg tablet 800 mg PO Q8H PRNQty: 30 0RF Discharge Instructions Additional Instructions: You are diagnosed with 2 small stones on the left side there were no past. It is important that you maintain your self well-hydrated but not over hydrated. You may take Tylenol or Motrin for the pain. Will be sent home with some nausea medication. Medical Decision Making Patient CT scan revealed the following findings. Nonobstructing right renal calculi noted. There are obstructing stones at the ureteropelvic junction on the left measuring about 5 and 3 millimeters in diameter.? There is moderate left hydronephrosis. Pain and nausea but treated adequately in the emergency department. Tolerated p.o. Will be discharged home with Zofran Tylenol Motrin. He was also given the prescription for oxycodone 10 mg total left hand. Given that I am unsure that the transmission occurred she was given a paper prescription. Patient will follow-up with her PCP and urology as instructed. Sign Out No HPI General Date/Time Provider Initiated Documentation: 06/15/22 11:04. HPI Narrative: 61-year-old presented to the emergency room for's sudden onset left lower quadrant abdominal pain. States she was at work when the pain started. This is associated with nausea and vomiting secondary to the pain. She states that this feels somewhat different than the last kidney stone she had in 2018. She has not taken anything for the nausea. Has not take anything for the pain.. No other infective no aggravating factors. Related Data Home Medications Medication Instructions Recorded Confirmed ascorbate calcium (vitamin C) 500 See Rx Instructions PO DAILY 12/18/19 04/12/22 mg tablet calcium carb-magnesium carb 250 2 tab PO DAILY 12/18/19 04/12/22 mg-300 mg tablet mecobalamin (vitamin B12) 1,000 1,000 mcg sublingual DAILY 12/18/19 04/12/22 mcg disintegrating tablet,sublingual cholecalciferol (vitamin D3) 25 1,000 unit PO DAILY 05/18/21 04/12/22 mcg (1,000 unit) tablet (Vitamin D3) ibuprofen 800 mg tablet 800 mg PO Q8H PRN #30 tabs 05/18/21 04/12/22 ondansetron 4 mg disintegrating 4 mg PO Q6H PRN #20 tabs 06/15/22 tablet oxycodone 5 mg capsule 5 mg PO Q6H PRN #10 caps 06/15/22 Previous Rx's Medication Instructions Recorded ibuprofen 800 mg tablet 800 mg PO Q8H PRN #30 tabs 05/18/21 ondansetron 4 mg disintegrating 4 mg PO Q6H PRN #20 tabs 06/15/22 tablet oxycodone 5 mg capsule 5 mg PO Q6H PRN #10 caps 06/15/22 Allergies Allergy/AdvReac Type Severity Reaction Status Date / Time No Known Allergies Allergy Verified 06/15/22 11:04 General Stated Complaint: Abd Prob SANDY: 3 Review of Systems Narrative: Constitutional is been negative for fever chills, negative for malaise, negative for fatigue. Eyes: No visual changes, no tearing ENT: No sore throat, no pain in the ears, no hearing change, no rhinorrhea Cardiovascular no chest pain, no shortness of breath with exertion, no palpitations, no lightheadedness Respiratory: No shortness of breath, no cough GI: , no dark stools : No dysuria, no frequency, no hematuria MSK: No myalgias, no arthralgias Skin: No rash Neurological: No headaches, no focal weakness, no paresthesias, no dizziness Psych: No anxiety, no depression Endo: No weight gain no weight loss Hematology/lymph: no easy bleeding, not on blood thinners PFSH All Active Problems (Updated 06/15/22 @ 13:39 by Phu Puckett MD) Acute bronchitis (Acute) Chest congestion (Acute) Osteoporosis (Chronic) Based on ankle tamar, hip U/S. Fam Hx (Grand mo kyphosis). Improved diet, no bisphosph. [ ] DEXA Family history of breast cancer (Acute) Family history of ovarian cancer (Acute) Family hx of colon cancer (Acute) [place] (2002)(42yo) [ ] Rpt Tinnitus (Acute) Hx of viral illness (Acute) Possible COVID19 .. late Jul travel, followed by terrible flu-like illness with significant chest discomfort/SOB. Encounter for screening for other viral diseases (Acute) Family history of cardiovascular disease (Acute) Tingling in extremities (Acute) Sensorineural hearing loss of both ears (Acute) Abnormal auditory perception (Acute) Asymmetric tonsils (Acute) Well woman exam with routine gynecological exam (Acute) Cervical polyp (Acute) Dog bite (Acute) Cellulitis (Acute) Laceration (Acute) Infected dog bite of hand including fingers (Acute) Ovarian cyst, right (Acute) Pelvic pain (Acute) Abnormal ultrasound (Acute) Status post dilation and curettage (Acute) LLQ pain (Acute) Kidney stone (Chronic) Medical History (Updated 06/15/22 @ 13:39 by Phu Puckett MD) No significant past medical history Surgical History (Updated 04/12/22 @ 10:59 by Kalie Palacios) History of breast surgery History of right breast biopsy (~2009) Calcifications Hx of colonoscopy Family History Mother Breast cancer Father Colon cancer Heart disease Depression Sister Skin cancer Cancer Ovarian cancer Paternal Grandmother Breast cancer Maternal Grandmother Breast cancer Social History Smoking/Tobacco Use Status: Never Smoking risk assessment performed?: Yes Alcohol Intake: current Alcohol Intake frequency: holidays/special occasions only Alcohol type: beer and wine Drug use: Never Substance use type: does not use Adopted: No Caregiver/Support person: No Foster care: No Household members: spouse Housing: house Number of Children: 3 Communication Needs: None Do you need help understanding health information?: Never 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, [employer] Sexually active: Yes Do you think of yourself as: straight/heterosexual Current gender identity: female What type of physical activity do you participate in: walking Duration: 15-30 minutes/day Frequency: daily Seatbelt use: always Helmet use: Yes Drive intox or ride w/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: No Working smoke detector in home: Yes Fire extinguisher in home: Yes Carbon monox detector in home: Yes Firearms in home: No Do you feel safe at home: Yes Do you feel safe in your relationship?: Yes Exam Narrative Exam Narrative: General: A,A Ox3, Calm, mild distress, well developed, pleasant and cooperative Head Size/Shape: normocephalic, atraumatic Eyes Pupils: PERRLA Extraocular Mobility: intact and symmetrical Conjunctiva: non-injected, anicteric, no discharge Ears, Nose, Throat Nares: patent bilaterally Oral Cavity: moist Neck:supple Respiratory Respiratory Effort: no dyspnea Auscultation: clear to auscultation bilaterally, normal breath sounds, no wheezing, no rales/crackles Cardiovascular Heart Auscultation: regular rate and rhythm, normal S1, normal S2, no murmurs, no rubs, no gallops, Pulse Quality: +2 equal bilaterally, location(s) Abdomen Inspection and Palpation: soft, non-tender, non-distended, no hepatosplenomegaly Musculoskeletal System Joints, Bones, and Muscles: no deformities Extremities: warm and well-perfused, no cyanosis, capillary refill <2 seconds Skin Skin Inspection: no rash, no lesions, no bruising Neurological Motor: normal tone, normal strength, moving all extremities equally Reflexes: deep tendon reflexes 2+ bilaterally, no clonus Psychiatric: good insight, good judgement, normal mood and affect Course Vital Signs Vital signs: Vital Signs Temperature 36.3 C L 06/15/22 10:54 Pulse 73 06/15/22 10:54 Blood Pressure 142/84 H 06/15/22 10:54 Pulse Oximetry 99 06/15/22 10:54 Temperature 36.3 C L 06/15/22 10:54 Temperature Source Skin 06/15/22 10:54 Pulse 73 06/15/22 10:54 Blood Pressure 142/84 H 06/15/22 10:54 Blood Pressure Position Sitting 06/15/22 10:54 Pulse Oximetry 99 06/15/22 10:54 Oxygen Delivery Method Room Air 06/15/22 10:54 Oxygen Flow Rate 0 06/15/22 10:54 Pain Level 10 06/15/22 10:54 Comment 06/15/22 10:54
[2022-06-15 11:29] LABS: HCT 42.7 % (36.0-46.0); HGB 13.9 g/dL (11.2-15.7); MCH 28.4 pg (27.0-33.0); MCHC 32.6 % (32.0-36.0); MCV 87 fL (80-95); MPV 9.4 fL (8.0-11.0); Platelet Count 298 10^3/uL (130-400); RDW 12.2 % (11.7-14.6); RDW-SD 38.9 fL; WBC 8.43 10^3/uL (4.4-10.8)
[2022-06-15] MEDS: Ketorolac 15 MG/ML VIAL IVP (11:31)
[2022-06-15] MEDS: Normal Saline 1,000 ML 1000 ML IV (11:31)
--- NOTE | 2022-06-15 11:32 | DI.CT_ITS ---
Exam(s) CT RENAL COLIC WO EXAM: CT RENAL COLIC WO INDICATION: LLQ pain. COMPARISON: No exams were available for comparison TECHNIQUE: CT examination was performed without contrast administration. FINDINGS: Images obtained through the lung bases are unremarkable. Visualized portions of the liver and splee n appear intact except for incidental healed granulomas of the spleen . Visualized portions of the pancreas are unremarkable. Gallbladder and bile ducts are CT normal. Abdominal aorta is of normal diameter. No significant abdominal wall hernia. No significant abdominal or pelvic adenopathy. Adrenals appear normal bilaterally. The kidneys are normal in size and shape. Note is made nonobstructing calculi the lower pole of righ t kidney. No right hydronephrosis or ureterolithiasis. On the left there is moderate hydronephrosis with 2 obstructing stones at the ureteropelvic junction, these measure about 5 millimeters and 4 millimeters in greatest diameter respectively. No additional left ureteral calcification. Urinary bladder is empty. Manager Financial structures intact by CT criteria.. Appendix not specifically visualized, but there is no evidence of appendicitis or diverticulitis. IMPRESSION: Nonobstructing right renal calculi noted. There are obstructing stones at the ureteropelvic junction on the left measuring about 5 and 3 millim eters in diameter. There is moderate left hydronephrosis. RADIATION DOSE DELIVERED: DLP Total DLP DATA REPOSITORY: All CT scans at this facility are submitted to the National Radiology Data Registry (NRDR) Dose Index Registry (DIR) with the [employer] (ACR). RADIATION OPTIMIZATION: All CT scans at this facility use at least one of these dose optimization te chniques: automated exposure control; mA and/or kV adjustment per patient size (includes targeted exa ms where dose is matched to clinical indication); or iterative reconstruction.
[2022-06-15 11:33] LABS: Bilirubin Negative (Negative); Blood Moderate (Negative); Clarity Clear (Clear); Glucose Negative (Negative); Ketones Negative (Negative); Leukocyte Esterase Negative (Negative); Nitrite Negative (Negative); Specific Gravity >= 1.030 (1.005-1.025); Urobilinogen 0.2 EU/dL (Up TO 0.2)
[2022-06-15 11:39] LABS: Bacteria Negative HPF (Negative); C & S Indicated? No; Casts 0-2 Hyaline LPF (Negative); Crystals Negative HPF (Negative); Epithelial Cells Rare HPF (Negative); Mucus Trace (Negative); RBC 20-50 HPF (0-2); WBC 0-2 HPF (0-5)
[2022-06-15 11:42] LABS: Anion Gap 7.1 mmol/L (3-11); BUN 21 mg/dL (7-18); CO2 27.9 mmol/L (21.0-32.0); CREATININE 0.9 mg/dL (0.55-1.02); Calcium 9.5 mg/dL (8.5-10.1); Chloride 102 mmol/L (98-107); Estimated GFR 72.73 (mL/min/1.73m2); Glucose 133 mg/dL (74-106); Potassium 3.8 mmol/L (3.5-5.1); Sodium 137 mmol/L (136-145)
[2022-06-15] MEDS: Ondansetron 4 MG/2 ML VIAL ×2 (11:43→12:10)
[2022-06-15] MEDS: MORPHine 4 MG/ML SYR (12:09)
[2022-06-15] MEDS: Ketorolac 15 MG/ML VIAL (13:03)
== END 2022-06-15 14:02 | disposition home or self-care (01) ==
PROVIDERS: Emergency Provider Emergency Medicine; PCP Student in an Organized Health Care Education/Training Program
DX: N13.2 Hydronephrosis with renal and ureteral calculous obstruction (principal)
CPT/HCPCS: 80048; 85027; 96361; 96372; 96374; 96375; 99284; 74176; 81003; 81015; J1885; J2270; J2405

== ENCOUNTER 2022-08-23 23:32 | Emergency (ER) | payer OTHER, SELFPAY ==
--- NOTE | 2022-08-23 23:30 | DI.CT_ITS ---
Exam(s) CT ABDOMEN PELVIS WO EXAM: CT ABDOMEN PELVIS WO CLINICAL HISTORY: left sided flank pain, r/o stone. TECHNIQUE: Imaging Protocol: Axial computed tomography images with coronal and sagittal reformatted images were created and reviewed CONTRAST MATERIAL: Intravenous: none Oral: None COMPARISON: CT CT RENAL COLIC WO from 06/15/2022 FINDINGS: VISUALIZED LUNG BASES: No nodules nor pleural effusions evident. ABDOMEN: There is no ascites. LIVER: There are no obvious focal hepatic lesions evident of this noninfused study. GALLBLADDER/BILIARY: No obvious gallbladder pathology. CBD is not dilated. PANCREAS: No evidence of pancreatic mass nor dilatation of the pancreatic duct. SPLEEN: Calcified granulomas in the spleen are again noted. ADRENALS: There are no significant adrenal masses. KIDNEYS:There are bilateral intrarenal calculi. However, on the left side there is also a 4 millimet er calculus in the proximal left ureter at the ureteropelvic junction with mild hydronephrosis above this level in the left kidney and some mild left-sided perinephric streaking. The left ureter below this level is not dilated and there are no calculi in the lower left ureter nor within the nondistend ed urinary bladder. No cyst or solid renal masses evident.. ABDOMINAL AORTA: Abdominal aorta is not enlarged. LYMPH NODES: There is no retroperitoneal nor paraaortic adenopathy. ABDOMINAL WALL: No evidence of significant anterior abdominal wall nor inguinal hernia. GI: There is no evidence of bowel obstruction, free air, nor abscess. PELVIS: LYMPH NODES: There is no intrapelvic nor inguinal adenopathy. GI: No evidence of appendicitis.No evidence of sigmoid diverticulitis. URINARY BLADDER: No calculi nor obvious masses evident REPRODUCTIVE: Uterus and adnexal regions appear unremarkable. No free fluid. OSSEOUS: No significant osseous lesions. There is mild degenerative anterolisthesis of L5 upon S1 due to advanced facet arthropathy at this le kwame. IMPRESSION: 1. The main finding here is a 4 millimeter calculus in the proximal left ureter at the ureteropelvic junction with mild hydronephrosis in the left kidney above this level as well as some ipsilateral per inephric streaking. The left ureter below this level is not dilated. There are no calculi in the lo wer left ureter nor within the urinary bladder. 2. There are remaining calculi noted in both kidneys. No incidental renal masses nor cysts evident. RADIATION DOSE DELIVERED: 1,140.38mGy.cm Total DLP DATA REPOSITORY: All CT scans at this facility are submitted to the National Radiology Data Registry (NRDR) Dose Index Registry (DIR) with the [employer] (ACR). RADIATION OPTIMIZATION: All CT scans at this facility use at least one of these dose optimization te chniques: automated exposure control; mA and/or kV adjustment per patient size (includes targeted exa ms where dose is matched to clinical indication); or iterative reconstruction.
[2022-08-23 23:38] VITALS: BP 130/78; PULSE 70; RESP 18; TEMP 36.3; O2SAT 100
--- NOTE | 2022-08-23 23:44 | ED.GENADUL_ITS ---
Discharge Plan Disposition Patient Disposition: Home Condition: Good Discharge Details Clinical Impression: Kidney stone on left side Primary Care Provider: Estela Aguilar ED Provider: Hoang Somers Home Meds and New Rx's Prescriptions: New tamsulosin [Flomax] 0.4 mg capsule 0.4 mg PO DAILY Qty: 7 0RF No Action ibuprofen 800 mg tablet 800 mg PO Q8H PRNQty: 30 0RF ondansetron 4 mg tablet,disintegrating 4 mg PO Q6H PRNQty: 20 0RF oxycodone 5 mg capsule 5 mg PO Q6H PRNQty: 10 0RF Discharge Instructions Instructions: Kidney Stones (ED) Additional Instructions: At this time you have evidence of a 4 mm kidney stone. Please continue to stay well-hydrated with lemon water. Take the Flomax as directed. It is been sent to the [facility] pharmacy. Take Tylenol and Motrin as needed for pain, as well as your leftover oxycodone's as needed. Take the Zofran as needed for nausea. If persistent pain or worsening pain over the next 48 to 72 hours you may need to be reassessed and potentially have intervention for the stone. Please monitor your symptoms closely. If you notice any worsening of your symptoms, or any new symptoms such as vomiting, diarrhea, fever, chills, shortness of breath, chest pain, numbness, weakness, or fainting , please return immediately to the emergency department for reevaluation. Please follow up with your primary care provider as soon as possible for reassessment and reevaluation. As always, it was a pleasure participating in your medical care today. Referrals: Wilber Valderrama MD [ [facility] STAFF PHYSICIAN] - Estela Aguilar DO [Primary Care Provider] - Medical Decision Making 61-year-old female with a past medical history of kidney stones presents today with left flank pain. It started at 5 PM. She describes it as achy in nature. It radiates from the left flank to the left lower quadrant. She states it feels similar to her previous kidney stones. She did take a oxycodone, which did improve her symptoms. She admits to nausea and vomiting. She denies any diarrhea. She denies any blood in her urine. She denies any fever or chills. No other complaints at this time. Physical exam demonstrates a well-appearing female, no significant reproducible or flank tenderness, however concern is high for potential kidney stone. We will give Ofirmev, rehydrate get a CT scan. We will monitor closely and reas sess. 1:[address] returned and shows evidence of a 4 mm stone in the proximal left ureter. Renal function stable, urinalysis negative for evidence of infection. On reassessment patient's pain is well controlled, she feels well and feels comfortable going home. She has been able to tolerate p.o. well. Symptoms inconsistent with kidney stone with UTI. Will treat with home Flomax, recommendation for continued NSAIDs, hydration with lemon water, and close follow-up with PCP/urology. Discussed red flags which would indicate that the stone is not moving, and potentially necessitate intervention. Patient is aware of these symptoms and will return if it occurs. I have extensively reviewed the treatment plan and discharge instructions with the patient and their family. I have addressed all patient concerns at this time. The patient and family was made aware of what symptoms to monitor for that would warrant a return to the emergency department. Discussed the plan with the patient and family, they demonstrate verbal understanding and agreement with our assessment and plan at this time. The documentation in this chart was dictated using [employer] dictation software. Please excuse any dictation errors. FINDINGS: Liver: Normal. No mass. Gallbladder and bile ducts: Normal. No calcified stones. No ductal dilation. Pancreas: Normal. No ductal dilation. Spleen: Normal. No splenomegaly. Adrenal glands: Normal. No mass. Kidneys and ureters: There is a 4mm stone in the proximal left ureter, with associated left-sided hydronephrosis and hydroureter. Bilateral nonobstructive nephrolithiasis. Stomach and bowel: Unremarkable. No obstruction. No mucosal thickening. Appendix: No evidence of appendicitis. Intraperitoneal space: Unremarkable. No free air. No significant fluid collection. Vasculature: Unremarkable. No abdominal aortic aneurysm. Lymph nodes: Unremarkable. No enlarged lymph nodes. Urinary bladder: Unremarkable as visualized. Reproductive: Unremarkable as visualized. Bones/joints: Unremarkable. No acute fracture. Soft tissues: Unremarkable. IMPRESSION: 1. There is a 4mm stone in the proximal left ureter, with associated left-sided hydronephrosis and hydroureter. 2. Bilateral nonobstructive nephrolithiasis. Thank you for allowing us to participate in the care of your patient. Dictated and Authenticated by: Elpidio Bergeron MD 08/24/2022 12:32 AM Eastern Time ([place] & [place]) HPI General Date/Time Provider Initiated Documentation: 08/23/22 23:37 . HPI Narrative: 61-year-old female with a past medical history of kidney stones presents today with left flank pain. It started at 5 PM. She describes it as achy in nature. It radiates from the left flank to the left lower quadrant. She states it feels similar to her previous kidney stones. She did take a oxycodone, which did improve her symptoms. She admits to nausea and vomiting. She denies any diarrhea. She denies any blood in her urine. She denies any fever or chills. No other complaints at this time. Related Data Home Medications Medication Instructions Recorded Confirmed ibuprofen 800 mg tablet 800 mg PO Q8H PRN #30 tabs 05/18/21 08/23/22 ondansetron 4 mg disintegrating 4 mg PO Q6H PRN #20 tabs 06/15/22 08/23/22 tablet oxycodone 5 mg capsule 5 mg PO Q6H PRN #10 caps 06/15/22 08/23/22 tamsulosin 0.4 mg capsule (Flomax) 0.4 mg PO DAILY #7 caps 08/24/22 Previous Rx's Medication Instructions Recorded ibuprofen 800 mg tablet 800 mg PO Q8H PRN #30 tabs 05/18/21 ondansetron 4 mg disintegrating 4 mg PO Q6H PRN #20 tabs 06/15/22 tablet oxycodone 5 mg capsule 5 mg PO Q6H PRN #10 caps 06/15/22 tamsulosin 0.4 mg capsule (Flomax) 0.4 mg PO DAILY #7 caps 08/24/22 Allergies Allergy/AdvReac Type Severity Reaction Status Date / Time No Known Allergies Allergy Verified 08/23/22 23:44 General Stated Complaint: FlankPain SANDY: 3 Review of Systems All systems reviewed & are unremarkable except as noted in HPI and below PFSH All Active Problems (Updated 08/24/22 @ 01:20 by Hoang Somers DO) Acute bronchitis (Acute) Chest congestion (Acute) Osteoporosis (Chronic) Based on ankle tamar, hip U/S. Fam Hx (Grand mo kyphosis). Improved diet, no bisphosph. [ ] DEXA Family history of breast cancer (Acute) Family history of ovarian cancer (Acute) Family hx of colon cancer (Acute) [place] (2002)(42yo) [ ] Rpt Tinnitus (Acute) Hx of viral illness (Acute) Possible COVID19 .. late Jul travel, followed by terrible flu-like illness with significant chest discomfort/SOB. Encounter for screening for other viral diseases (Acute) Family history of cardiovascular disease (Acute) Tingling in extremities (Acute) Sensorineural hearing loss of both ears (Acute) Abnormal auditory perception (Acute) Asymmetric tonsils (Acute) Well woman exam with routine gynecological exam (Acute) Cervical polyp (Acute) Dog bite (Acute) Cellulitis (Acute) Laceration (Acute) Infected dog bite of hand including fingers (Acute) Ovarian cyst, right (Acute) Pelvic pain (Acute) Abnormal ultrasound (Acute) Status post dilation and curettage (Acute) LLQ pain (Acute) Kidney stone on left side (Acute) Medical History No significant past medical history Surgical History History of breast surgery History of right breast biopsy (~2009) Calcifications Hx of colonoscopy Family History Mother Breast cancer Father Colon cancer Heart disease Depression Sister Skin cancer Cancer Ovarian cancer Paternal Grandmother Breast cancer Maternal Grandmother Breast cancer Social History Smoking/Tobacco Use Status: Never Smoking risk assessment performed?: Yes Alcohol Intake: current Alcohol Intake frequency: holidays/special occasions only Alcohol type: beer and wine Drug use: Never Substance use type: does not use Adopted: No Caregiver/Support person: No Foster care: No Household members: spouse Housing: house Number of Children: 3 Communication Needs: None Do you need help understanding health information?: Never 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, [employer] Sexually active: Yes Do you think of yourself as: straight/heterosexual Current gender identity: female What type of physical activity do you participate in: walking Duration: 15-30 minutes/day Frequency: daily Seatbelt use: always Helmet use: Yes Drive intox or ride w/intox 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 3.ENT: Atraumatic external nose and ears. Moist MM. Neck: Symmetric, trachea midline, No thyromegaly. 4.CVS: +S1/S2, No murmurs or gallops. Peripheral pulses 2+ and equal in all extremities. Brisk capillary refill in all extremities. 5.RESP: Unlabored respiratory effort. Clear to auscultation bilaterally. No wheezes rales or rhonchi 6.GI: Soft, Nontender/Nondistended, No hepatosplenomegaly. No guarding or rebound. No flank or CVA tenderness. 7.MSK: Normocephalic/Atraumatic, Extremities w/o deformity or ttp No cyanosis or clubbing, Normal movement of all extremities 8.Skin: Warm, Dry. No rashes or lesions. 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 Sensation grossly intact, no focal neurologic deficits. 10.Psych: (AAO) x3. Appropriate mood and affect Course Vital Signs Vital signs: Vital Signs Temperature 36.3 C L 08/23/22 23:38 Pulse 70 08/23/22 23:38 Respiratory Rate 18 08/23/22 23:38 Blood Pressure 130/78 08/23/22 23:38 Pulse Oximetry 100 08/23/22 23:38 Temperature 36.3 C L 08/23/22 23:38 Temperature Source Temporal Artery Scan 08/23/22 23:38 Pulse 70 08/23/22 23:38 Respiratory Rate 18 08/23/22 23:38 Blood Pressure 130/78 08/23/22 23:38 Blood Pressure Position Sitting 08/23/22 23:38 Pulse Oximetry 100 08/23/22 23:38 Oxygen Delivery Method Room Air 08/23/22 23:38 Oxygen Flow Rate 0 08/23/22 23:38
[2022-08-24] VITALS (11 sets, daily range): BP systolic 122–128; BP diastolic 71–79; PULSE 61–70; RESP 20; TEMP 36.7; O2SAT 97–100
[2022-08-24 00:03] LABS: Abs Immature Grans 0.03 10^3/uL (0.0-0.06); Absolute Basophil Count 0.04 10^3/uL (0.0-0.2); Absolute Eosinophil Count 0.04 10^3/uL (0.0-0.7); Absolute Lymphocyte Count 1.27 10^3/uL (1.2-3.4); Absolute Monocyte Count 0.29 10^3/uL (0.1-0.8); Basophils % 0.4; Eosinophils % 0.4; HGB 13.4 g/dL (11.2-15.7); Immature Grans % 0.3; Lymphocytes % 13.1; MCH 28.8 pg (27.0-33.0); MCHC 32.7 % (32.0-36.0); MCV 88 fL (80-95); MPV 9.4 fL (8.0-11.0); Neutrophils % 82.8; Platelet Count 250 10^3/uL (130-400); RBC 4.66 10^6/uL (3.93-5.22); RDW 11.9 % (11.7-14.6); RDW-SD 38.1 fL; WBC 9.67 10^3/uL (4.4-10.8)
[2022-08-24] MEDS: Normal Saline 1,000 ML 1000 ML IV (00:17)
[2022-08-24] MEDS: ACETAMINOPHEN 1,000 MG/100 ML BTL 400 MG IVPB (00:18)
[2022-08-24 00:19] LABS: ALT 26 U/L (14-59); AST 22 U/L (15-37); Albumin 3.9 g/dL (3.4-5.0); Alkaline Phosphatase 106 U/L (46-116); Anion Gap 6.7 mmol/L (3-11); BUN 20 mg/dL (7-18); Bilirubin, Total 0.4 mg/dL (0.2-1.0); CO2 29.3 mmol/L (21.0-32.0); Calcium 9.2 mg/dL (8.5-10.1); Chloride 102 mmol/L (98-107); Estimated GFR 64.09 (mL/min/1.73m2); Glucose 143 mg/dL (74-106); Potassium 4.2 mmol/L (3.5-5.1); Sodium 138 mmol/L (136-145); Total Protein 7.6 g/dL (6.4-8.2)
--- NOTE | 2022-08-24 00:33 | DI.VRAD_ITS ---
PROCEDURE INFORMATION: Exam: CT Abdomen And Pelvis Without Contrast Exam date and time: 08/24/2022 12:06 AM Age: 61 years old Clinical indication: Other: L flank; Patient HX: Left sided flank pain, R/O stone; Additional info: HX of renal stones TECHNIQUE: Imaging protocol: Computed tomography of the abdomen and pelvis without contrast. Radiation optimization: All CT scans at this facility use at least one of these dose optimization techniques: automated exposure control; mA and/or kV adjustment per patient size (includes targeted exams where dose is matched to clinical indication); or iterative reconstruction. COMPARISON: CT RENAL COLIC WO 06/15/2022 11:31 AM FINDINGS: Liver: Normal. No mass. Gallbladder and bile ducts: Normal. No calcified stones. No ductal dilation. Pancreas: Normal. No ductal dilation. Spleen: Normal. No splenomegaly. Adrenal glands: Normal. No mass. Kidneys and ureters: There is a 4mm stone in the proximal left ureter, with associated left-sided hydronephrosis and hydroureter. Bilateral nonobstructive nephrolithiasis. Stomach and bowel: Unremarkable. No obstruction. No mucosal thickening. Appendix: No evidence of appendicitis. Intraperitoneal space: Unremarkable. No free air. No significant fluid collection. Vasculature: Unremarkable. No abdominal aortic aneurysm. Lymph nodes: Unremarkable. No enlarged lymph nodes. Urinary bladder: Unremarkable as visualized. Reproductive: Unremarkable as visualized. Bones/joints: Unremarkable. No acute fracture. Soft tissues: Unremarkable. IMPRESSION: 1. There is a 4mm stone in the proximal left ureter, with associated left-sided hydronephrosis and hydroureter. 2. Bilateral nonobstructive nephrolithiasis. Dictated and Authenticated by: Elpidio Bergeron MD. Ordering:JULIANN Bolton MD
[2022-08-24] MEDS: Ondansetron 4 MG/2 ML VIAL IVP (00:34)
[2022-08-24] MEDS: Tamsulosin 0.4 MG CAPCR PO (00:34)
[2022-08-24 01:11] LABS: Bilirubin Negative (Negative); Blood Moderate (Negative); Clarity Clear (Clear); Glucose Negative (Negative); Ketones Negative (Negative); Leukocyte Esterase Negative (Negative); Nitrite Negative (Negative); Specific Gravity 1.015 (1.005-1.025); Urobilinogen 0.2 EU/dL (Up TO 0.2)
[2022-08-24 01:16] LABS: Bacteria Rare HPF (Negative); C & S Indicated? No; Casts Negative LPF (Negative); Crystals Negative HPF (Negative); Epithelial Cells Rare HPF (Negative); Mucus Negative (Negative); WBC Negative HPF (0-5)
[2022-08-24] MEDS: Ondansetron O.D.T. 4 MG TABEF, 3 TABS/BTL PO (01:26)
--- NOTE | 2022-08-24 01:29 | NUR.NOTE ---
Refferal sent to Urology for kidney stones pt to be seen in 1-2 weeks Nursing Note:
== END 2022-08-24 01:38 | disposition home or self-care (01) ==
PROVIDERS: Emergency Provider Student in an Organized Health Care Education/Training Program; PCP Student in an Organized Health Care Education/Training Program
DX: N20.0 Calculus of kidney (principal); R10.32 Left lower quadrant pain
CPT/HCPCS: 80053; 96361; 96365; 96375; 99284; 74176; 81003; 81015; 85025; J0131; J2405

== ENCOUNTER 2022-11-09 18:24 | Outpatient (REF) | payer OTHER, SELFPAY | END 2022-11-09 18:25 | disposition home or self-care (01) | LOC: LBN 18:24 | PROVIDERS: PCP Student in an Organized Health Care Education/Training Program; Visit Provider Family Medicine | DX: J02.9 Acute pharyngitis, unspecified (principal) | CPT/HCPCS: 87070 ==

== ENCOUNTER 2022-12-25 17:58 | Outpatient (CLI) | payer OTHER, SELFPAY ==
--- NOTE | 2022-12-25 18:15 | DI.RAD_ITS ---
Exam(s) XR KNEE RT 4V AP,LAT,PROMISE,PAT EXAM: XR KNEE RT 4V AP,LAT,PROMISE,PAT CLINICAL HISTORY: evaluate pathology. TECHNIQUE: 2D digital imaging was performed of the right knee. Four views obtained. Merchant, AP, la teral and PA tunnel views were obtained. COMPARISON: CR XR CHEST 2V PA LATERAL from 08/31/2019 FINDINGS: BONES: No acute fracture is present. No bony destructive lesion is seen. JOINTS: The knee is normally aligned. There is a tiny joint effusion. Mild periarticular spurring is seen at the lateral femoral tibial joint. There is chondrocalcinosis in the femoral tibial joint whic h can be seen with CPPD arthropathy. SOFT TISSUE: Normal. IMPRESSION: Minimal degenerative changes. No acute abnormality. DATA REPOSITORY: RADIATION DOSE DELIVERED:
--- NOTE | 2022-12-25 19:13 | DI.VRAD_ITS ---
PROCEDURE INFORMATION: Exam: XR right knee Exam date and time: 12/25/2022 6:30 PM Age: 61 years old Clinical indication: Pain; Knee; Right; Patient HX: Evaluate pathology TECHNIQUE: Imaging protocol: Radiologic exam of the right knee. Views: 4 or more views. COMPARISON: No relevant prior studies available. FINDINGS: Bones/joints: Osseous alignment is normal. No acute fracture or joint fluid evident. Mild chondrocalcinosis of the menisci noted. Minimal spurring of the patella. Minimal joint space narrowing in the medial compartment. Soft tissues: Normal. IMPRESSION: Minimal arthritic changes. No acute abnormality Dictated and Authenticated by: Nikunj Weller MD. Ordering:DIMITRIS Queen MD
== END 2022-12-25 18:18 ==
LOC: DI 17:58
PROVIDERS: PCP Student in an Organized Health Care Education/Training Program; Visit Provider Nurse Practitioner Family
DX: M25.561 Pain in right knee (principal)
CPT/HCPCS: 73564

== ENCOUNTER 2023-01-09 01:50 | Outpatient (CLI) | payer OTHER, SELFPAY ==
--- NOTE | 2023-01-09 08:30 | DI.MRI_ITS ---
Exam(s) MR LOWER JOINT RT WO EXAM: MR LOWER JOINT RT WO CLINICAL HISTORY: rt knee pain, M25.561. TECHNIQUE: Multiplanar multisequence MRI was performed. COMPARISON: CR,XR XR KNEE RT 4V AP,LAT,PROMISE,PAT from 12/25/2022 FINDINGS: BONES: There is a large contusion in the medial femoral condyle. There is an osteochondral defect in the medial femoral condyle. JOINTS: There is loss of the articular cartilage in the medial patellar facet with underlying subchon dral edema and cysts present. There is a moderate joint effusion. TENDONS: Extensor mechanism: Unremarkable. Medial retinaculum: Unremarkable. Lateral retinaculum: Unremarkable. Popliteus: Unremarkable. MUSCLES: Unremarkable. MENISCI: There is degenerative signal seen in the medial meniscus. There is hyperintense signal seen in the root of the medial meniscus suspicious for tear. The lateral meniscus is unremarkable. SOFT TISSUES: There is edema seen in the soft tissues around the medial knee. There is also mild noris ma posteriorly. LIGAMENTS: Anterior Cruciate: Unremarkable. Posterior Cruciate: Unremarkable. Medial Collateral:There is laxity and increased signal seen in the proximal medial collateral ligamen t. The findings are suspicious for partial tear. There is edema seen in the surrounding soft tissue s. Lateral Collateral: Unremarkable. OTHER: IMPRESSION: 1. Findings suggestive of a tear of the root of the medial meniscus. 2. Partial tear of the proximal medial collateral ligament. 3. Large contusion involving the medial femoral condyle. 4. 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 5. Joint effusion. 6. Edema in the medial and posterior soft tissues. DATA REPOSITORY:
== END 2023-01-09 02:10 ==
LOC: DI 01:50
PROVIDERS: PCP Student in an Organized Health Care Education/Training Program; Visit Provider Nurse Practitioner Family
DX: M25.561 Pain in right knee (principal); S83.231A Complex tear of medial meniscus, current injury, right knee, initial encounter; S83.412A Sprain of medial collateral ligament of left knee, initial encounter; S80.01XA Contusion of right knee, initial encounter; M22.41 Chondromalacia patellae, right knee; X58.XXXA Exposure to other specified factors, initial encounter
CPT/HCPCS: 73721

== ENCOUNTER 2023-01-28 12:48 | Outpatient (REF) | payer OTHER, SELFPAY ==
[2023-01-28 10:19] LABS: Creatinine,Urine 46.28 mg/dL; Sodium, Urine 46 mmol/L
[2023-01-28 10:42] LABS: CLEAVED CELLS 90 mmol/24h (40-220); Creatinine,24hr Ur 0.88 g/24hr (0.60-1.80); Total Volume 1950 ml
[2023-01-30 09:59] LABS: Calcium Urine 6.4 mg/dL (See Note); Calcium Urine 24 hr 125 mg/24hr (100-300); Phosphorus Urine 37.1 mg/dL (See Note); Phosphorus Urine 24hr 0.7 g/24hrs (0.4-1.3); Timed Urine Volume 1950 mL
[2023-01-30 10:01] LABS: Magnesium 24hr Urine 48.8 mg/24hrs (12.0-192.0); Magnesium Random Urine 2.5 mg/dL (See Note); Timed Urine Volume 1950 mL; Uric Acid Urine 17.8 mg/dL (See Note); Uric Acid Urine 24hr 347 mg/24hrs (250-750)
[2023-01-31 12:30] LABS: Citrate Excretion, 24hr, U 729 mg/24 h; Urine Volume 1950 mL
[2023-02-01 12:23] LABS: Oxalate, U 0.23 mmol/24 h; Oxalate, U 20.2 mg/24 h (9.7 - 40.5); Urine Volume 1950 mL
[2023-02-04 09:57] LABS: Urine Collection Period 24 h
[2023-02-04 09:58] LABS: Timed Urine Volume 1950; Timed Urine Volume 1950 mL; Urine Collection Period 24
== END 2023-01-28 12:49 | disposition home or self-care (01) ==
LOC: LBN 12:48
PROVIDERS: PCP Student in an Organized Health Care Education/Training Program; Visit Provider Urology
DX: N20.0 Calculus of kidney (principal); Z87.442 Personal history of urinary calculi
CPT/HCPCS: 82507; 83735; 81050; 82340; 82570; 83945; 84105; 84300; 84560

== ENCOUNTER 2023-04-10 16:28 | Outpatient (REF) | payer OTHER, SELFPAY ==
--- NOTE | 2023-04-10 14:50 | SKI_PTH ---
PATIENT: Zayra Doll LOC: [facility] U#:[id number] AGE/SX: 62/F ROOM: RE04/10/[address]: Maicol Bazan MD : 1960 BED: DIS: 04/10/2023 SPEC #: [id number] RECD: 04/10/23 18:46 STATUS: STEVEN REQ #: [id number] KOTA: 04/10/23 14:[address]: Maicol Bazan DEPT: Surgical Specimen RECD BY: Heather Evans ENTERED: 04/10/23 18:46 SP TYPE: NICHOLAS MELGAR DR: Estela Aguilar DO Tissues: 1 - SKIN BIOPSY(SHAVE/PUNCH) Procedures: SKIN LEVEL 4 Comments: [id number]
== END 2023-04-10 16:29 | disposition home or self-care (01) ==
LOC: LBN 16:28
PROVIDERS: PCP Student in an Organized Health Care Education/Training Program; Visit Provider Otolaryngology
DX: C44.319 Basal cell carcinoma of skin of other parts of face (principal); L98.8 Other specified disorders of the skin and subcutaneous tissue
CPT/HCPCS: 88305

== ENCOUNTER 2023-05-21 08:53 | Outpatient (REF) | payer OTHER, SELFPAY ==
--- NOTE | 2023-05-21 07:45 | SKI_PTH ---
PATIENT: Zayra Doll LOC: [facility] U#:[id number] AGE/SX: 62/F ROOM: RE05/21/[address]: Maicol Bazan MD : 1960 BED: DIS: 05/21/2023 SPEC #: [id number] RECD: 05/21/23 17:11 STATUS: STEVEN REQ #: [id number] KOTA: 05/21/23 07:[address]: Maicol Bazan DEPT: Surgical Specimen RECD BY: Heather Evans ENTERED: 05/21/23 17:11 SP TYPE: NICHOLAS MELGAR DR: Estela Aguilar DO Tissues: 1 - SKIN BIOPSY(SHAVE/PUNCH) Procedures: SKIN LEVEL 4 Comments: [id number]
== END 2023-05-21 08:54 | disposition home or self-care (01) ==
LOC: LBN 08:53
PROVIDERS: PCP Student in an Organized Health Care Education/Training Program; Visit Provider Otolaryngology
DX: L98.9 Disorder of the skin and subcutaneous tissue, unspecified (principal); C44.319 Basal cell carcinoma of skin of other parts of face
CPT/HCPCS: 88305

== ENCOUNTER → 2023-06-12 02:26 | Outpatient (CLI) | payer OTHER, SELFPAY ==
--- NOTE | 2023-06-12 08:45 | DI.MAMMO_ITS ---
Exam(s) MAMMO SCREENING EXAM: MAMMO SCREENING CLINICAL HISTORY: screening Z12.39 FOR BREAST CANCER TECHNIQUE: Mammograms were interpreted according to the usual protocol including computer analysis w [employer]Recall CAD system, tomosynthesis and C-view imaging. COMPARISON: 2013 through 2021 FINDINGS: The breasts are composed of heterogeneously dense fibroglandular densities, Breast Density category C . No suspicious masses or suspicious microcalcifications are seen. No skin thickening or abnormal axillary lymph nodes are seen. There has been no significant change from prior exams. IMPRESSION: BI-RADS Category 1, Negative mammogram. Yearly screening mammography is recommended. Breast Density Category C, heterogeneously Dense. The mammogram demonstrates the patient's breast tissue is dense. Dense breast tissue is very common a nd is not abnormal but dense breast tissue can make it harder to find cancer on a mammogram. Also, de nse breast tissue may increase breast cancer risk. This information about the result of the mammogram report was provided to the patient to raise their awareness. Use this report when you speak with the patient about their risks for breast cancer, which includes their family history. At that time, you may recommend additional screening tests (Ultrasound or MRI) as they might be useful based on their r isk. A negative radiographic report should not delay biopsy if a dominant or clinically suspicious mass is present. Up to ten percent of cancers are not identified on mammography. A negative report may reinforce clinical impression. Adenosis and dense breasts may obscure an underlying neoplasm. False positive reports average 6 to 10%.
== END ==
PROVIDERS: PCP Student in an Organized Health Care Education/Training Program; Visit Provider Nurse Practitioner
DX: Z12.31 Encounter for screening mammogram for malignant neoplasm of breast (principal)
CPT/HCPCS: 77063; 77067

== ENCOUNTER 2023-07-16 21:32 | Emergency (ER) | payer OTHER, SELFPAY ==
[2023-07-16 22:07] VITALS: BP 143/75; PULSE 73; RESP 18; TEMP 37.1; O2SAT 99
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
[2023-07-16 22:43] LABS: Bilirubin Negative (Negative); Blood Moderate (Negative); Clarity Clear (Clear); Glucose Negative (Negative); Ketones Trace mg/dL (Negative); Leukocyte Esterase Negative (Negative); Nitrite Negative (Negative); Specific Gravity >= 1.030 (1.005-1.025); Urobilinogen 0.2 mg/dL (Up to 0.2); pH 5.5 (5-8)
[2023-07-16 22:52] LABS: Bacteria Negative HPF (Negative); C & S Indicated? No; Casts Negative LPF (Negative); Crystals Negative HPF (Negative); Epithelial Cells Rare HPF (Negative); Mucus Trace (Negative); RBC 20-50 HPF (0-2); WBC Negative HPF (0-5)
[2023-07-16 23:16] LABS: Abs Immature Grans 0.02 10^3/uL (0.0-0.06); Absolute Basophil Count 0.04 10^3/uL (0.0-0.2); Absolute Eosinophil Count 0.12 10^3/uL (0.0-0.7); Absolute Lymphocyte Count 2.95 10^3/uL (1.2-3.4); Absolute Monocyte Count 0.63 10^3/uL (0.1-0.8); Absolute Neutrophil Count 5.13 10^3/uL (1.2-6.7); Basophils % 0.4; Eosinophils % 1.3; HCT 41.4 % (36.0-46.0); HGB 13.4 g/dL (11.2-15.7); Immature Grans % 0.2; Lymphocytes % 33.2; MCH 28.4 pg (27.0-33.0); MCHC 32.4 % (32.0-36.0); MCV 88 fL (80-95); MPV 9.4 fL (8.0-11.0); Monocytes % 7.1; Neutrophils % 57.8; Platelet Count 272 10^3/uL (130-400); RBC 4.72 10^6/uL (3.93-5.22); RDW 11.9 % (11.7-14.6); RDW-SD 38.4 fL; WBC 8.89 10^3/uL (4.4-10.8)
[2023-07-16] MEDS: Lactated Ringers 1,000 ML 1000 ML IV (23:30)
[2023-07-16 23:31] LABS: ALT 22 U/L (14-59); AST 23 U/L (15-37); Albumin 3.4 g/dL (3.4-5.0); Alkaline Phosphatase 96 U/L (46-116); Anion Gap 9.9 mmol/L (3-11); BUN 16 mg/dL (7-18); Bilirubin, Total 0.4 mg/dL (0.2-1.0); CO2 25.1 mmol/L (21.0-32.0); CREATININE 0.9 mg/dL (0.55-1.02); Calcium 9.1 mg/dL (8.5-10.1); Chloride 106 mmol/L (98-107); Estimated GFR 72.28 (mL/min/1.73m2); Glucose 97 mg/dL (74-106); Potassium 4.1 mmol/L (3.5-5.1); Sodium 141 mmol/L (136-145); Total Protein 7.4 g/dL (6.4-8.2)
[2023-07-16] MEDS: Omnipaque 350 MG/ML 100 ML BTL IJ (23:37)
[2023-07-16] MEDS: Normal Saline Flush 10 ML SYR IVP (23:38)
[2023-07-16] MEDS: Normal Saline - Diluent 50 ML VIAL IJ (23:38)
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
[2023-07-17 01:00] VITALS: BP 119/70; PULSE 75; RESP 16; TEMP 36.5; O2SAT 99
== END 2023-07-17 01:07 | disposition home or self-care (01) ==
PROVIDERS: Emergency Provider Student in an Organized Health Care Education/Training Program; PCP Student in an Organized Health Care Education/Training Program
DX: R10.9 Unspecified abdominal pain (principal); Z04.1 Encounter for examination and observation following transport accident
CPT/HCPCS: 74177; 80053; 96360; 99285; 71260; 81003; 81015; 85025; 99284; J3490

== ENCOUNTER 2024-01-02 12:19 | Emergency (ER) | payer OTHER, SELFPAY ==
[2024-01-02] VITALS (11 sets, daily range): BP systolic 120–134; BP diastolic 71–82; PULSE 48–60; RESP 14; TEMP 36.9; O2SAT 95–98
--- NOTE | 2024-01-02 12:30 | DI.CT_ITS ---
Exam(s) CT ABDOMEN PELVIS W EXAM: CT ABDOMEN PELVIS W CLINICAL HISTORY: ABD PAIN TECHNIQUE: Imaging Protocol: Axial computed tomography images with coronal and sagittal reformatted images were created and reviewed. CONTRAST MATERIAL: Intravenous: Omnipaque 350 Contrast volume:100 mL Oral: No COMPARISON: CT CT THORACIC LUMBAR SPINE REC from 07/16/[address] CHEST/ABD/PEL W from 07/16/2023 FINDINGS: ABDOMEN: Lung Bases: There is a small hiatal hernia. There is a calcified granuloma in the right middle lobe. Dependent atelectasis is seen in the lung bases. No focal consolidating infiltrates are present. Liver: Normal density. No measurable mass. Portal, Superior Mesenteric, and Splenic Veins: Unremarkable. Gallbladder and Biliary Tract: No radiodense calculus or dilation. Pancreas: Normal density, no abnormal calcifications or inflammatory process. Spleen: Calcified granuloma are seen in the spleen. Adrenals: No masses seen. Kidneys: Normal size, contour and axis. There is a large stone in the inferior pole of the right kidn ey measuring 1.4 x 0.6 cm. There is a 5 mm stone in the proximal left ureter causing moderate hydron ephrosis. No masses seen. Abdominal Aorta: Abdominal portion non-dilated. Bowel: No obstruction or bowel wall thickening. No evidence of appendicitis. Peritoneal Cavity: No ascites, collection or mesenteric inflammatory response. No free air. Lymph Nodes: Within normal limits. Bones: Within normal limits for the patient's age. Soft Tissues: Unremarkable. PELVIS: Bladder: Symmetric distention, no gross wall thickening. Reproductive Organs: Unremarkable as visualized. Lymph Nodes: Within normal limits. Bones: Within normal limits for the patient's age. IMPRESSION: 1. 5 mm proximal left ureteral stone causing moderate hydronephrosis. 2. Right nephrolithiasis. RADIATION DOSE DELIVERED: Total DLP DATA REPOSITORY: All CT scans at this facility are submitted to the National Radiology Data Registry (NRDR) Dose Index Registry (DIR) with the [place] (ACR). RADIATION OPTIMIZATION: All CT scans at this facility use at least one of these dose optimization te chniques: automated exposure control; mA and/or kV adjustment per patient size (includes targeted exa ms where dose is matched to clinical indication); or iterative reconstruction.
--- NOTE | 2024-01-02 12:30 | RT.EKG_ITS ---
APPROVED REPORT Exam: Resting ECG Reason for Exam: ABD PAIN Patient Location: E HR:51 bpm ECG Measurements Heart Rate 51 AXIS CO 176 P 33 QRSd 75 QRS 43 QT 446 T 34 QTc 411 Conclusion Sinus bradycardia 51 normal axis no stemi
[2024-01-02 13:01] LABS: Abs Immature Grans 0.03 10^3/uL (0.0-0.06); Absolute Basophil Count 0.04 10^3/uL (0.0-0.2); Absolute Eosinophil Count 0.09 10^3/uL (0.0-0.7); Absolute Lymphocyte Count 2.15 10^3/uL (1.2-3.4); Absolute Monocyte Count 0.47 10^3/uL (0.1-0.8); Absolute Neutrophil Count 5.11 10^3/uL (1.2-6.7); Basophils % 0.5 %; Eosinophils % 1.1 %; HCT 41.6 % (36.0-46.0); HGB 13.7 g/dL (11.2-15.7); Immature Grans % 0.4 %; Lymphocytes % 27.2 %; MCHC 32.9 % (32.0-36.0); MCV 88 fL (80-95); MPV 9.2 fL (8.0-11.0); Neutrophils % 64.8 %; Platelet Count 274 10^3/uL (130-400); RBC 4.73 10^6/uL (3.93-5.22); RDW 11.9 % (11.7-14.6); RDW-SD 38.6 fL; WBC 7.89 10^3/uL (4.4-10.8)
[2024-01-02] MEDS: Ketorolac 15 MG/ML VIAL 10 MG IVP (13:01)
[2024-01-02] MEDS: Ondansetron 4 MG/2 ML VIAL IVP (13:01)
[2024-01-02] MEDS: Normal Saline 1,000 ML 1000 ML IV (13:01)
[2024-01-02 13:19] LABS: ALT 23 U/L (14-59); AST 16 U/L (15-37); Albumin 3.8 g/dL (3.4-5.0); Alkaline Phosphatase 103 U/L (46-116); Anion Gap 9.5 mmol/L (3-11); BUN 13 mg/dL (7-18); Bilirubin, Total 0.5 mg/dL (0.2-1.0); CO2 28.5 mmol/L (21.0-32.0); CREATININE 0.9 mg/dL (0.55-1.02); Calcium 9.4 mg/dL (8.5-10.1); Chloride 103 mmol/L (98-107); Estimated GFR 71.83 (mL/min/1.73m2); Glucose 116 mg/dL (74-106); Potassium 3.7 mmol/L (3.5-5.1); Sodium 141 mmol/L (136-145); Total Protein 7.4 g/dL (6.4-8.2)
[2024-01-02 13:21] LABS: Lipase 35 U/L (16-77)
[2024-01-02] MEDS: Omnipaque 350 MG/ML 500 ML BTL-Imaging package 100 ML IJ (13:37)
[2024-01-02] MEDS: Normal Saline - Diluent 50 ML VIAL IJ (13:37)
[2024-01-02] MEDS: HYDROmorphone 2 MG/ML SYR 1 MG IVP (13:57)
--- NOTE | 2024-01-02 14:19 | W.ED.GENAD ---
Discharge Plan Disposition Patient Disposition: Home Condition: Stable Discharge Details Clinical Impression: Left renal stone, Acute flank pain Primary Care Provider: Estela Aguilar ED Provider: Manny Rodriguez Home Meds and New Rx's Prescriptions: New tamsulosin [Flomax] 0.4 mg capsule 0.4 mg PO DAILY Qty: 30 0RF ketorolac 10 mg tablet 10 mg PO Q6H PRN3 Days Qty: 12 0RF ondansetron 4 mg tablet,disintegrating 4 mg PO Q6H PRN (Reason: nausea and vomiting) Qty: 20 0RF Discharge Instructions Instructions: Kidney Stone, Adult ED Additional Instructions: take flomax daily use toradol, tylenol for pain control severe pain can treat with oxy drink lots of water follow up with urology return to ED with decreased urine output, severe pain, not tolerating medicine Discharge Data Discharge Date/Time-TO BE ENTERED AT DEPARTURE: 01/02/24 15:20 HPI General Date/Time Provider Initiated Documentation: 01/02/24 12:41. Limitations to Documentation: no limitations. Information obtained by: patient. HPI Narrative: 63-year-old female with past medical history of renal stones, presents for evaluation of left flank pain. She reports the pain is in her upper abdomen, wraps around to the front from the back. Associated with severe nausea. Pain started this morning. She reports that last night she had some similar pain on the right side. She states that the pain does feel like prior kidney stones, she denies any difficulty with urination, dysuria or hematuria. She reports that she was concerned since she had symptoms on the right side last night. Now on the left side today. She reports 2 bowel movements today that is an increase from normal, but not diarrhea. She has tried some NSAIDs for relief. She has not had any fever or vomiting. Related Data Home Medications Medication Instructions Recorded Confirmed ketorolac 10 mg tablet 10 mg PO Q6H PRN 3 days #12 tabs 01/02/24 ondansetron 4 mg disintegrating 4 mg PO Q6H PRN nausea and 01/02/24 tablet vomiting #20 tabs tamsulosin 0.4 mg capsule (Flomax) 0.4 mg PO DAILY #30 caps 01/02/24 Previous Rx's Medication Instructions Recorded ketorolac 10 mg tablet 10 mg PO Q6H PRN 3 days #12 tabs 01/02/24 ondansetron 4 mg disintegrating 4 mg PO Q6H PRN nausea and 01/02/24 tablet vomiting #20 tabs tamsulosin 0.4 mg capsule (Flomax) 0.4 mg PO DAILY #30 caps 01/02/24 Allergies Allergy/AdvReac Type Severity Reaction Status Date / Time No Known Allergies Allergy Verified 01/02/24 12:27 General Stated Complaint: Abd Prob SANDY: 3 Exam Narrative Exam Narrative: Review of Systems: All systems reviewed & are unremarkable except as noted in HPI and below Well-developed, no acute distress NCAT PERRL, normal conjunctiva RRR no murmur Unlabored respiratory effort clear bilaterally Nondistended abdomen no generalized tenderness, guarding or rebound, no CVA tenderness Extremities w/o deformity, no cyanosis, no edema No rashes or lesions. no focal neurologic deficits Appropriate mood and affect Course Vital Signs Vital signs: Vital Signs Temperature 36.9 C 01/02/24 12:23 Pulse 60 01/02/24 12:23 Respiratory Rate 14 01/02/24 12:23 Blood Pressure 134/82 01/02/24 12:23 Pulse Oximetry 98 01/02/24 12:23 Temperature 36.9 C 01/02/24 12:28 Temperature Source Oral 01/02/24 12:28 Pulse 60 01/02/24 12:28 Respiratory Rate 14 01/02/24 12:28 Respiratory Effort Normal, Non-Labored 01/02/24 12:26 Blood Pressure 134/82 01/02/24 12:28 Blood Pressure Position Sitting 01/02/24 12:28 Pulse Oximetry 98 01/02/24 12:28 Oxygen Delivery Method Room Air 01/02/24 12:28 Oxygen Flow Rate 0 01/02/24 12:28 Pain Level 10 01/02/24 13:57 Lab/Test Results Lab/Test Results: Laboratory Tests Range/Units 01/02/24 12:55 WBC (4.4-10.8) 10^3/uL 7.89 RBC (3.93-5.22) 10^6/uL 4.73 Hgb (11.2-15.7) g/dL 13.7 Hct (36.0-46.0) % 41.6 MCV (80-95) fL 88 MCH (27.0-33.0) pg 29.0 MCHC (32.0-36.0) % 32.9 RDW (11.7-14.6) % 11.9 Plt Count (130-400) 10^3/uL 274 MPV (8.0-11.0) fL 9.2 Immature Gran % % 0.4 Neutrophils % % 64.8 Lymphocytes % % 27.2 Monocytes % % 6.0 Eosinophils % % 1.1 Basophils % % 0.5 Nucleated RBC % (0.0-0.3) % 0.0 Absolute Neutrophils (1.2-6.7) 10^3/uL 5.11 Absolute Lymphocytes (1.2-3.4) 10^3/uL 2.15 Absolute Monocytes (0.1-0.8) 10^3/uL 0.47 Absolute Eosinophils (0.0-0.7) 10^3/uL 0.09 Absolute Basophils (0.0-0.2) 10^3/uL 0.04 Sodium (136-145) mmol/L 141 Potassium (3.5-5.1) mmol/L 3.7 Chloride (98-107) mmol/L 103 Carbon Dioxide (21.0-32.0) mmol/L 28.5 Anion Gap (3-11) mmol/L 9.5 BUN (7-18) mg/dL 13 Creatinine (0.55-1.02) mg/dL 0.9 Est GFR (CKD-EPI 2020) (mL/min/1.73m2) 71.83 Glucose (74-106) mg/dL 116 H Calcium (8.5-10.1) mg/dL 9.4 Total Bilirubin (0.2-1.0) mg/dL 0.5 AST (15-37) U/L 16 ALT (14-59) U/L 23 Alkaline Phosphatase (46-116) U/L 103 Total Protein (6.4-8.2) g/dL 7.4 Albumin (3.4-5.0) g/dL 3.8 Lipase (16-77) U/L 35 Medical Decision Making Emergent evaluation of left sided abdominal and flank pain. Initial differential includes renal colic, constipation, diverticulitis. Less likely pneumonia or other cardiopulmonary etiology. Patient does have a history of renal stones. Initial plan for labs, urinalysis, pain control nausea control as well as CT imaging of the abdomen to further evaluate for this new onset pain. Lab work reviewed. There is no leukocytosis or anemia. The patient has no derangement in her electrolytes or renal function. Initially had some mild improvement after Toradol the pain is worsened, IV Dilaudid given CT reviewed, 5mm stone noted. normal renal function, urinalyis without infection. Patient ammeanable to trial of medical expulsive therapy. Will discharge with zofran, oxy, toradol and flomax. referred to urology for f/u. RTER precautions advised. Medical Records Medical records reviewed: Yes I reviewed the patient's medical records. Lab Data Lab results reviewed: Yes I reviewed the patient's lab results. Quality:SDOH Health Related Social Needs: No Data to Display PFSH All Active Problems (Updated 01/02/24 @ 14:57 by Manny Rodriguez MD) Acute flank pain (Acute) Left renal stone (Acute) Basal cell carcinoma, face (Acute) Internal derangement of right knee (Acute) Injection: 01/24/2023 Acute bronchitis (Acute) Chest congestion (Acute) Osteoporosis (Chronic) Based on ankle tamar, hip U/S. Fam Hx (Grand mo kyphosis). Improved diet, no bisphosph. [ ] DEXA Family history of breast cancer (Acute) Family history of ovarian cancer (Acute) Family hx of colon cancer (Acute) [place] (2002)(42yo) [ ] Rpt Tinnitus (Acute) Hx of viral illness (Acute) Possible COVID19 .. late Jul travel, followed by terrible flu-like illness with significant chest discomfort/SOB. Encounter for screening for other viral diseases (Acute) Family history of cardiovascular disease (Acute) Tingling in extremities (Acute) Sensorineural hearing loss of both ears (Acute) Abnormal auditory perception (Acute) Asymmetric tonsils (Acute) Well woman exam with routine gynecological exam (Acute) Cervical polyp (Acute) Dog bite (Acute) Cellulitis (Acute) Laceration (Acute) Infected dog bite of hand including fingers (Acute) Ovarian cyst, right (Acute) Pelvic pain (Acute) Abnormal ultrasound (Acute) Status post dilation and curettage (Acute) LLQ pain (Acute) Medical History (Updated 01/02/24 @ 14:57 by Manny Rodriguez MD) No significant past medical history Surgical History (Updated 08/09/23 @ 08:39 by Janice Story RN) S/P Mohs surgery for basal cell carcinoma (07/30/23) Left sideburn. Performed at [facility] Hx of colonoscopy History of right breast biopsy (~2009) Calcifications History of breast surgery Family History Mother Breast cancer Father Colon cancer Heart disease Depression Sister Skin cancer Cancer Ovarian cancer Paternal Grandmother Breast cancer Maternal Grandmother Breast cancer Social History Smoking/Tobacco Use Status: Never Smoking risk assessment performed?: Yes Alcohol Intake: current Alcohol Intake frequency: holidays/special occasions only Alcohol type: beer and wine Drug use: Never Substance use type: does not use Adopted: No Caregiver/Support person: No Foster care: No Household members: spouse Housing: house Number of Children: 3 Communication Needs: None Do you need help understanding health information?: Never 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
[2024-01-02 14:31] LABS: Bilirubin Negative (Negative); Blood Large (Negative); Clarity Cloudy (Clear); Glucose Negative (Negative); Ketones 15 mg/dL (Negative); Leukocyte Esterase Negative (Negative); Nitrite Negative (Negative); Specific Gravity 1.015 (1.005-1.025); Urobilinogen 0.2 mg/dL (Up to 0.2)
[2024-01-02 14:38] LABS: Bacteria Negative HPF (Negative); C & S Indicated? No; Casts Negative LPF (Negative); Crystals Negative HPF (Negative); Epithelial Cells Few HPF (Negative); Mucus Negative (Negative); RBC >50 HPF (0-2)
--- NOTE | 2024-01-03 10:17 | NUR.NOTE ---
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 Showing the tabs, what is used most by each for their job. Nursing Note:
== END 2024-01-02 15:20 | disposition home or self-care (01) ==
PROVIDERS: Emergency Provider Emergency Medicine; PCP Student in an Organized Health Care Education/Training Program
DX: N13.2 Hydronephrosis with renal and ureteral calculous obstruction (principal); R00.1 Bradycardia, unspecified
CPT/HCPCS: 36415; 80053; 83690; 93005; 99285; 74177; 81003; 81015; 85025; 93010; 99284; J1170; J1885; J2405

== ENCOUNTER 2024-02-18 11:18 | Emergency (ER) | payer OTHER, SELFPAY ==
[2024-02-18 11:27] VITALS: BP 117/75; PULSE 64; RESP 18; TEMP 35.9; O2SAT 97
--- NOTE | 2024-02-18 11:30 | DI.CT_ITS ---
Exam(s) CT RENAL COLIC WO EXAM: CT RENAL COLIC WO CLINICAL HISTORY: hx kidney stones, right flank pain. TECHNIQUE: Imaging Protocol: Axial computed tomography images with coronal and sagittal reformatted images were created and reviewed. CONTRAST MATERIAL: Noncontrast COMPARISON: CT CT CHEST/ABD/PEL W from 07/16/[address] ABDOMEN PELVIS W from 01/02/2024 FINDINGS: ABDOMEN: Lung Bases: Small hiatal hernia. Mild patchy infiltrates seen at both lung bases. Liver: Normal attenuation. No measurable mass. Gallbladder and biliary tract: No radiodense calculus or dilation. Pancreas: Normal density, no calcifications or inflammatory process. Spleen: Normal. Kidneys: Normal size, contour and axis. 13 x 6 millimeter stone noted in right ureteral vesicle junc tion causing moderate to severe hydronephrosis. 7 millimeters stone lower pole left kidney. tiny no nobstructing stone lower pole right kidney. No masses seen. Adrenal glands: No masses seen. Abdominal Aorta: Abdominal portion non-dilated. Soft tissues: Unremarkable. PELVIS: Bladder: Symmetric distention, no gross wall thickening. No evidence of stones.No visible mass. Bowel: No obstruction or bowel wall thickening. Appendix normal. Reproductive: Unremarkable. Peritoneal cavity: No ascites, collection or mesenteric inflammatory response. Bones: Unremarkable for age.. IMPRESSION: 13 x 6 millimeter stone in the right ureteropelvic junction causing moderate to severe hydronephrosis . Additional nonobstructing stones bilaterally. Mild bilateral patchy infiltrates at both lung bases. RADIATION DOSE DELIVERED: Total DLP DATA REPOSITORY: All CT scans at this facility are submitted to the National Radiology Data Registry (NRDR) Dose Index Registry (DIR) with the [employer] (ACR). RADIATION OPTIMIZATION: All CT scans at this facility use at least one of these dose optimization te chniques: automated exposure control; mA and/or kV adjustment per patient size (includes targeted exa ms where dose is matched to clinical indication); or iterative reconstruction.
--- NOTE | 2024-02-18 11:45 | W.ED.GENAD ---
Discharge Plan Disposition Patient Disposition: Home Condition: Stable Discharge Details Clinical Impression: Kidney stone, Right flank pain Primary Care Provider: Estela Aguilar ED Provider: Lamin Mcgrath Home Meds and New Rx's Prescriptions: Continued benzonatate 100 mg capsule 100 mg PO TID PRN (Reason: cough) Qty: 14 0RF albuterol sulfate [Proventil HFA] 90 mcg/actuation HFA aerosol inhaler 2 puff inhalation Q6H PRN (Reason: shortness of breath or wheezing) Qty: 8.5 0RF No Action doxycycline hyclate 100 mg capsule 100 mg PO BID Qty: 14 0RF Discharge Instructions Additional Instructions: You have a 13 x 6 mm kidney stone that is unlikely to pass on its own. We sent a referral to try to expedite follow up with Dr. Rojo for you He can take 1000 mg of acetaminophen and 600 mg of ibuprofen every 6 hours as needed If you feel more ill or have new symptoms such as persistent vomiting or high fevers return to the emergency department for reevaluation. HPI General Mode of arrival: ambulatory. Date/Time Provider Initiated Documentation: 02/18/24 11:21. Limitations to Documentation: no limitations. Information obtained by: patient. History of Present Illness 63 year old F presents to the emergency department with the chief complaint of right flank pain, described as moderate, Quality is described as stabbing and aching, and is localized to the back. Patient started experiencing this hour(s) (2) and it has been constant. No relieving factors improve symptom(s), No exacerbating factors reported . Patient notes nausea/vomiting; denies fever/chills. Patient did receive the following treatments prior to arrival, NSAID Related Data Home Medications ?Medication ?Instructions ?Recorded ?Confirmed albuterol sulfate 90 mcg/actuation 2 puff inhalation Q6H PRN 02/15/24 02/18/24 aerosol inhaler (Proventil HFA) shortness of breath or wheezing #8.5 grams benzonatate 100 mg capsule 100 mg PO TID PRN cough #14 caps 02/15/24 02/18/24 doxycycline hyclate 100 mg capsule 100 mg PO BID #14 caps 02/15/24 02/18/24 Previous Rx's ?Medication ?Instructions ?Recorded albuterol sulfate 90 mcg/actuation 2 puff inhalation Q6H PRN 02/15/24 aerosol inhaler (Proventil HFA) shortness of breath or wheezing #8.5 grams benzonatate 100 mg capsule 100 mg PO TID PRN cough #14 caps 02/15/24 doxycycline hyclate 100 mg capsule 100 mg PO BID #14 caps 02/15/24 Allergies Allergy/AdvReac Type Severity Reaction Status Date / Time No Known Allergies Allergy Verified 02/18/24 11:29 General Stated Complaint: FlankPain SANDY: 3 Review of Systems All systems reviewed & are unremarkable except as noted in HPI and below Constitutional Constitutional: Denies chills, Denies fever(s) and Denies weakness Cardiovascular Cardiovascular: Denies chest pain and Denies dyspnea Respiratory Respiratory: Denies cough and Denies dyspnea Gastrointestinal Gastrointestinal: Denies abdominal pain Genitourinary Genitourinary: Denies dysuria and Reports flank pain Neurologic Neurologic: Denies weakness Exam Const General: no acute distress Orientation: alert HENMT Head: normal to inspection Ears: external ears normal General nose exam: external nose normal Mouth: moist mucous membranes Eyes General: appearance normal, both eyes and all related structures Neck Neck: normal visual inspection Resp Effort & Inspection: normal respiratory effort and able to speak in complete sentences Cardio Rate: regular rate Skin General skin exam: no rashes or lesions noted Neuro General: patient alert and patient oriented x3 Extrem General: normal to inspection Psych Mental Status: mental status grossly normal Course Vital Signs Vital signs: Vital Signs Temperature 35.9 C L 02/18/24 11:27 Pulse 64 02/18/24 11:27 Respiratory Rate 18 02/18/24 11:27 Blood Pressure 117/75 02/18/24 11:27 Pulse Oximetry 97 02/18/24 11:27 Temperature 35.9 C L 02/18/24 11:27 Temperature Source Temporal Artery Scan 02/18/24 11:27 Pulse 64 02/18/24 11:27 Respiratory Rate 18 02/18/24 11:27 Respiratory Effort Normal, Non-Labored 02/18/24 11:30 Blood Pressure 117/75 02/18/24 11:27 Blood Pressure Position Sitting 02/18/24 11:27 Pulse Oximetry 97 02/18/24 11:27 Oxygen Delivery Method Room Air 02/18/24 11:27 Oxygen Flow Rate 0 02/18/24 11:27 Medical Decision Making 63-year-old female with a history of kidney stones comes in with right flank pain similar to prior kidney stones. She was seen in December for left flank pain and had a obstructing ureteral stone which she does not believe that she is passed. She also was noted to have a large right-sided stone in her kidney on that time. She says she was doing well until today when she had an episode nausea vomiting then developed the right lower back pain. Denies any fevers, urinary symptoms. She is alert and oriented x 4 on arrival speaking clearly. She has a soft nontender abdomen. No CVA tenderness. Localizes pain to the right lower lumbar region no midline pain. No saddle anesthesia. Her history and complaints are consistent with a likely UTI, will check CBC, CMP, lipase and obtain CT renal colic for further evaluation. Also check UA. Patient with a large 13 x 6 mm obstructing right kidney stone, no evidence of coinfection. She is stable. Discussed results with her. She has been seeing Dr. Rojo, urology used to be in [facility] but to switch locations if she would prefer to follow-up with him. Our community leader has been in contact with Dr. Rojo's office and forwarded appropriate paperwork and has been told that they will reach out to her today to try and arrange expeditious follow-up. Patient is comfortable with this plan, stable for discharge return precautions given Differential Diagnosis Differential Diagnosis: Kidney stone, back strain, UTI Medical Records Medical records reviewed: Yes I reviewed the patient's medical records. Imaging Data Radiologic Study: Attestation: I personally reviewed and interpreted this imaging study as follows: Imaging: CT Scan Radiologist's impression: Patient Name: Zayra Doll Unit #: [id number] Loc: ER Ordering Provider: Lamin Mcgrath M.D. Status: [facility] ER Primary Care Provider: Estela Aguilar DO Date of Exam: 02/18/24 Sex: F : 1960 Age: 63 Exam(s) a CT:CT renal colic wo Exam(s) CT RENAL COLIC WO EXAM: CT RENAL COLIC WO CLINICAL HISTORY: hx kidney stones, right flank pain. TECHNIQUE: Imaging Protocol: Axial computed tomography images with coronal and sagittal reformatted images were created and reviewed. CONTRAST MATERIAL: Noncontrast COMPARISON: CT CT CHEST/ABD/PEL W from 07/16/[address] ABDOMEN PELVIS W from 01/02/2024 FINDINGS: ABDOMEN: Lung Bases: Small hiatal hernia. Mild patchy infiltrates seen at both lung bases. Liver: Normal attenuation. No measurable mass. Gallbladder and biliary tract: No radiodense calculus or dilation. Pancreas: Normal density, no calcifications or inflammatory process. Spleen: Normal. Kidneys: Normal size, contour and axis. 13 x 6 millimeter stone noted in right ureteral vesicle junction causing moderate to severe hydronephrosis. 7 millimeters stone lower pole left kidney. tiny nonobstructing stone lower pole right kidney. No masses seen. Adrenal glands: No masses seen. Abdominal Aorta: Abdominal portion non-dilated. Soft tissues: Unremarkable. PELVIS: Bladder: Symmetric distention, no gross wall thickening. No evidence of stones.No visible mass. Bowel: No obstruction or bowel wall thickening. Appendix normal. Reproductive: Unremarkable. Peritoneal cavity: No ascites, collection or mesenteric inflammatory response. Bones: Unremarkable for age.. IMPRESSION: 13 x 6 millimeter stone in the right ureteropelvic junction causing moderate to severe hydronephrosis. Additional nonobstructing stones bilaterally. Mild bilateral patchy infiltrates at both lung bases. Lab Data Lab results reviewed: Yes I reviewed the patient's lab results. Quality:SDOH Health Related Social Needs: No Data to Display PFSH All Active Problems (Updated 02/18/24 @ 13:45 by Lamin Mcgrath MD) Right flank pain (Acute) Kidney stone (Chronic) Basal cell carcinoma, face (Acute) Internal derangement of right knee (Acute) Injection: 01/24/2023 Acute bronchitis (Acute) Chest congestion (Acute) Osteoporosis (Chronic) Based on ankle tamar, hip U/S. Fam Hx (Grand mo kyphosis). Improved diet, no bisphosph. [ ] DEXA Family history of breast cancer (Acute) Family history of ovarian cancer (Acute) Family hx of colon cancer (Acute) [place] (2002)(42yo) [ ] Rpt Tinnitus (Acute) Hx of viral illness (Acute) Possible COVID19 .. late Jul travel, followed by terrible flu-like illness with significant chest discomfort/SOB. Encounter for screening for other viral diseases (Acute) Family history of cardiovascular disease (Acute) Tingling in extremities (Acute) Sensorineural hearing loss of both ears (Acute) Abnormal auditory perception (Acute) Asymmetric tonsils (Acute) Well woman exam with routine gynecological exam (Acute) Cervical polyp (Acute) Dog bite (Acute) Cellulitis (Acute) Laceration (Acute) Infected dog bite of hand including fingers (Acute) Ovarian cyst, right (Acute) Pelvic pain (Acute) Abnormal ultrasound (Acute) Status post dilation and curettage (Acute) LLQ pain (Acute) Medical History (Updated 02/18/24 @ 13:45 by Lamin Mcgrath MD) No significant past medical history Surgical History (Updated 08/09/23 @ 08:39 by Janice Story RN) S/P Mohs surgery for basal cell carcinoma (07/30/23) Left sideburn. Performed at [facility] Hx of colonoscopy History of right breast biopsy (~2009) Calcifications History of breast surgery Family History Mother Breast cancer Father Colon cancer Heart disease Depression Sister Skin cancer Cancer Ovarian cancer Paternal Grandmother Breast cancer Maternal Grandmother Breast cancer Social History Smoking/Tobacco Use Status: Never Smoking risk assessment performed?: Yes Alcohol Intake: current Alcohol Intake frequency: holidays/special occasions only Alcohol type: beer and wine Drug use: Never Substance use type: does not use Adopted: No Caregiver/Support person: No Foster care: No Household members: spouse Housing: house Number of Children: 3 Communication Needs: None Do you need help understanding health information?: Never 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, [employer] Sexually active: Yes Do you think of yourself as: straight/heterosexual Current gender identity: female What type of physical activity do you participate in: walking Duration: 15-30 minutes/day Frequency: daily Seatbelt use: always Helmet use: Yes Drive intox or ride w/intox fast food delivery driver: No Working smoke detector in home: Yes Fire extinguisher in home: Yes Carbon monox detector in home: Yes Firearms in home: No Do you feel safe at home: Yes Do you feel safe in your relationship?: Yes PAWSS Have you Been Recently Intoxicated or Drunk Within the Last 30 days?: No Have you Ever Experienced Previous Episodes of Alcohol Withdrawal?: No Have you ever Experienced Withdrawal Seizures?: No Have you ever Experienced Delirium Tremens(DT)s?: No Have you ever undergone Alcohol Rehabilitation Treatment (i.e, inpt ot outpatient treatment programs)?: No Have you ever Experienced Blackouts?: No Have you ever Combined Alcohol with other Downers within the last 90 days?: No Have you ever Combined Alcohol with any other Substance of Abuse during the last 90 days?: No Positive Blood Alcohol level on Presentation? [PCS.BAL]: No Evidence of Increased Autonomic Activity (i.e. HR>120, tremor, sweating, agitation, nausea)?: No Result: 0
[2024-02-18 12:04] LABS: Abs Immature Grans 0.05 10^3/uL (0.0-0.06); Absolute Basophil Count 0.06 10^3/uL (0.0-0.2); Absolute Eosinophil Count 0.14 10^3/uL (0.0-0.7); Absolute Lymphocyte Count 1.78 10^3/uL (1.2-3.4); Absolute Neutrophil Count 4.83 10^3/uL (1.2-6.7); Basophils % 0.8 %; Eosinophils % 1.9 %; HCT 39.9 % (36.0-46.0); HGB 13.3 g/dL (11.2-15.7); Immature Grans % 0.7 %; Lymphocytes % 24.5 %; MCH 29.2 pg (27.0-33.0); MCHC 33.3 % (32.0-36.0); MCV 88 fL (80-95); Monocytes % 5.5 %; Neutrophils % 66.6 %; RBC 4.55 10^6/uL (3.93-5.22); RDW 11.4 % (11.7-14.6); RDW-SD 36.6 fL; WBC 7.26 10^3/uL (4.4-10.8)
[2024-02-18] MEDS: Normal Saline 1,000 ML 1000 ML IV (12:20)
[2024-02-18 12:33] LABS: ALT 28 U/L (14-59); AST 16 U/L (15-37); Albumin 3.2 g/dL (3.4-5.0); Alkaline Phosphatase 113 U/L (46-116); Anion Gap 7.4 mmol/L (3-11); BUN 18 mg/dL (7-18); Bilirubin, Total 0.42 mg/dL (0.2-1.0); CO2 29.6 mmol/L (21.0-32.0); CREATININE 0.8 mg/dL (0.55-1.02); Calcium 8.8 mg/dL (8.5-10.1); Chloride 103 mmol/L (98-107); Estimated GFR 82.74 (mL/min/1.73m2); Glucose 98 mg/dL (74-106); Lipase 38 U/L (16-77); Potassium 3.9 mmol/L (3.5-5.1); Sodium 140 mmol/L (136-145); Total Protein 7.3 g/dL (6.4-8.2)
[2024-02-18 12:48] VITALS: BP 125/75; PULSE 63; RESP 18; TEMP 36.4; O2SAT 100
[2024-02-18 12:50] LABS: Bilirubin Negative (Negative); Blood Moderate (Negative); Clarity Clear (Clear); Glucose Negative (Negative); Ketones Negative (Negative); Leukocyte Esterase Negative (Negative); Nitrite Negative (Negative); Urobilinogen 0.2 mg/dL (Up to 0.2)
[2024-02-18 12:59] LABS: WBC 0-2 HPF (0-5)
[2024-02-18 13:00] LABS: Bacteria Few HPF (Negative); C & S Indicated? No; Casts Negative LPF (Negative); Crystals Negative HPF (Negative); Epithelial Cells Rare HPF (Negative); Mucus Moderate (Negative); Other Cells Rare Yeast (Negative)
[2024-02-18] MEDS: HYDROmorphone 2 MG/ML SYR 1 MG IVP (13:40)
--- NOTE | 2024-02-18 14:19 | NUR.NOTE ---
Addendum entered by Laya Vasquez 02/18/24 14:35: Information was efax to : [email or web address]. Original Note: Referral faxed to Dr. Rojo, [facility] for follow up. Faxed demographics, provider note, CT report and the images are sent. P [phone] F [phone] Med Rec F [phone] Nursing Note:
== END 2024-02-18 14:55 | disposition home or self-care (01) ==
PROVIDERS: Emergency Provider Emergency Medicine; PCP Student in an Organized Health Care Education/Training Program
DX: R10.31 Right lower quadrant pain (principal); N20.0 Calculus of kidney
CPT/HCPCS: 80053; 83690; 96361; 96374; 99284; 74176; 81003; 81015; 83735; 85025; 99283; J1170

== ENCOUNTER 2024-03-27 20:57 | Emergency (ER) | payer OTHER, SELFPAY ==
[2024-03-27 21:00] VITALS: BP 153/94; PULSE 62; RESP 15; TEMP 37.1; O2SAT 97
--- OUTSIDE RECORDS SUMMARY | 2024-03-27 21:02 | XMS_ITS | Encounter Summary ---
[facility] Address [facility] [place] [address] Care Team Providers Care Sample Taker Operator Name Role Phone QueenieEstela mejia Danny MAGAÑA Primary Care Provider +1- [phone] Reason for Visit * Reason Comments Basal Cell Carcinoma Encounter Details Date Type Department Care Team (Latest Contact Info) Description 07/30/2023 7:45 AM EST Clinical Support Dermatology at [facility] [address] [place] [address] Anderson Vital MD [facility] [address] [place] [address] Basal cell carcinoma (BCC) of sideburn area Social History Tobacco Use Types Packs/Day Years Used Date Smoking Tobacco: Never Smokeless Tobacco: Never Sex and Gender Information Value Date Recorded Sex Assigned at Not on file Gender Identity Not on file Sexual Orientation Not on file documented as of this encounter Progress Notes * Cookie Noland RN - 07/30/2023 7:45 AM EST Mohs consultation and preoperative note (H&P) Patient Name: Zayra Suarez Age: 62 y.o. Date of : 1960 Today's Date: 07/30/2023 REFERRING PROVIDER: Maicol Bazan MD CC: Mohs micrographic surgery for treatment of a cutaneous tumor HPI: Zayra Suarez is a 62 y.o. female presenting for biopsy-proven basal cell carcinoma location on the left sideburn. The dermatologic preoperative information sheet was reviewed with pertinent positive and negative as below. DERMATOLOGIC PRE-OPERATIVE EVALUATION AND REVIEW OF SYSTEMS History of Mohs surgery-No Pacemaker/Defibrillator-No Joint replacement or other implantable devices (e.g. Cochlear implant)-No Do you take a blood thinner-No History of organ transplant-No History of artificial valve or stroke-No History of liver disease or bleeding disorder-No Do you have any medical problems that may affect your upcoming surgery-No Do you have any concerns regarding your upcoming surgery-No SOCIAL HISTORY: Makes Own Decisions: Yes Hearing aid or other devices: No Relevant travel history or future plans: No Tobacco use (amount per day, type of tobacco): No Do you have any physical limitations that may affect your surgery-No ALLERGIES: Allergies reviewed MEDICATIONS: Medications reviewed documented in this encounter Plan of Treatment Not on file documented as of this encounter Visit Diagnoses Diagnosis Basal cell carcinoma (BCC) of sideburn area documented in this encounter Care Teams Sample Taker Operator Relationship Specialty Start Date End Date Estela Aguilar DO [address] [place] [address] PCP - General Family Medicine 12/22/19 documented as of this encounter
--- OUTSIDE RECORDS SUMMARY | 2024-03-27 21:02 | XMS_ITS | Encounter Summary ---
[facility] [place] [address] Care Team Providers Care Lockstitch Zipper Setter Name Role Phone Lauren Estelajoe Delgado DO Primary Care Provider +1- [phone] Encounter Details Date Type Department Care Team (Late st Contact Info) Description 02/04/2020 Telephone [place] [address] Elina Francisco, [facility] Social History Tobacco Use Types Packs/Day Years Used Date Smoking Tobacco: Never Assessed Sex and Gender Information Value Date Recorded Sex Assigned at Not on file Gender Identity Not on file Sexual Orientation Not on file documented as of this encounter Miscellaneous Notes * Telephone Encounter - Elina Francisco CCMA - 02/04/2020 9:16 AM EDT GAP Technical Planner Pre-Telemedicine Phone Note [x] Patient not reached [] Patient reached and the following information was reviewed/obtained per protocol: [] Confirmed patient name and date of [] Confirmed telemedicine lino (LiveDatadyo and Virtual Visit) is downloaded and functioning [] Confirmed location of patient - TeleVisit is taking place in [] [place] [] [place] [] If not on [facility], working on signing up for [facility] [] Confirmed has completed any pre-visit questionnaires [] If has not received required pre-visit questionnaires, send via [facility] [] Reviewed patient medications [] Documented self-reported vitals: [] Weight: [] Height [] pulse recorded: [] Other information or concerns documented in this encounter Plan of Treatment Not on file documented as of this encounter Visit Diagnoses Not on filedocumented in this encounter Care Teams Lockstitch Zipper Setter Relationship Specialty Start Date End Date Estela Aguilar DO [address] [place] [address] PCP - General Family Medicine 12/22/19 documented as of this encounter
--- OUTSIDE RECORDS SUMMARY | 2024-03-27 21:02 | XMS_ITS | Clinical Summary ---
Author Organization [facility] Address [address] [place] [address] Care Team Providers Care Tug Master Name Role Phone Unknown, Provider Primary Care Provider Social History Tobacco Use Types Packs/Day Years Used Date Smoking Tobacco: Never Assessed Interpersonal Safety Answer Date Record ed Physically Hurt Never 06/14/2020 Verbally Threaten Not on file 06/14/2020 Sex and Gender Information Value Date Recorded Sex Assigned at Not on file Gender Identity Not on file Sexual Orientation Not on file Plan of Treatment Health Maintenance Due Date Last Done Comments Hepatitis C Screen 1960 RSV Immunization ( o r 60+ Years) (1 - 1-dose 60+ series) 2020 COVID-19 Vaccine (2022-24 season) 2023 Care Teams Tug Master Relationship Specialty Start Date End Date Unknown, Provider, PCP - General 07/22/20
--- OUTSIDE RECORDS SUMMARY | 2024-03-27 21:02 | XMS_ITS | Encounter Summary ---
[place] [address] Care Team Providers Care Innovation Manager Name Role Phone Estela Aguilar DO Primary Care Provider +1- [phone] Encounter Details Date Type Department Care Team (Latest Contact Info) Description 07/29/2023 Travel Social History Tobacco Use Types Packs/Day Years Used Date Smoking Tobacco: Never Smokeless Tobacco: Never Sex and Gender Information Value Date Recorded Sex Assigned at Not on file Gender Identity Not on file Sexual Orientation Not on file documented as of this encounter Plan of Treatment Not on file documented as of this encounter Visit Diagnoses Not on filedocumented in this encounter Care Teams Innovation Manager Relationship Specialty Start Date End Date Estela Aguilar DO [address] [facility] [place] [address] PCP - General Family Medicine 12/22/19 documented as of this encounter
--- OUTSIDE RECORDS SUMMARY | 2024-03-27 21:02 | XMS_ITS | Encounter Summary ---
Author Organization [facility] Address [address] [place] [address] Care Team Providers Care Rn Pediatric Icu Name Role Phone Unknown, Provider Primary Care Provider [phone] Encounter Details Date Type Department Care Team (Late st Contact Info) Description 04/11/2023 Lab Requisition [facility] Pathology & Laboratory Medicine - [facility] [address] [place] [address] Maicol Bazan MD [address] [place] [id number] Neoplasm of uncertain behavior of skin Social History Tobacco Use Types Packs/Day Years [...] on file documented as of this encounter Procedures Procedure Name Priority Date/Time Associated Diagnosis Comments SURGICAL PATHOLOGY Today 04/09/2023 14 :50 EDT Neoplasm of uncertain behavior of skin documented in this encounter Results * SURGICAL PATHOLOGY (04/09/2023 14:50 EDT) Note to Patient The following pathology results have been interpreted by your pathologist and may be available to you before your health provider has had the opportunity to review them. Please allow time for your provider to receive these results and explore management options, if applicable. 04/12/2023 10:32 EDT [facility] Final Diagnosis A. SKIN OF CHEEK, LEFT, SHAVE BIOPSY: - Basal cell carcinoma, superficial and nodular types. - Lesions present at the biopsy base. 04/12/2023 10:32 [facility] Attestation There was significant resident/fellow involvement in the diagnostic evaluation of this case. By the signature below, the attending physician certifies that they have personally conducted a gross and/or microscopic examination of the described specimens and rendered or confirmed the above diagnosis. 04/12/2023 10:32 [facility] at [address]32 Clinical History L cheek lesion, hx sun exposure; clinical diagnosis code: L98.9 04/12/2023 10:32 [facility] Gross Description A. Received in formalin labelled with proper patient identification (initials N, D) and left cheek are 2 irregular shave of richards-sharma skin (each averaging 0.3 x 0.2 x 0.1 cm). The margins are inked. The specimen is entirely submitted in A1. JOSE IBRAHIM(ASCP) 04/11/2023 9:19 04/12/2023 10:32 [facility] Resident/Hector w: Thuy Oakes MD 04/12/2023 10:32 [facility] Performing Lab [facility] 04/12/2023 10:32 [facility] Scanned Images 04/12/2023 10:32 [facility] Tissue SPECIMEN FROM SKIN / Unknown 04/09/2023 14:50 EDT 04/11/2023 7:57 EDT Maicol Bazan MD PATHOLOGY ORDERABLES [facility] [address] [place] [address] documented in this encounter Visit Diagnoses Diagnosis Neoplasm of uncertain behavior of skin documented in this encounter Care Teams Rn Pediatric Icu Relationship Specialty Start Date End Date Unknown, Provider, PCP - General 07/22/20 documented as of this encounter
--- OUTSIDE RECORDS SUMMARY | 2024-03-27 21:02 | XMS_ITS | Encounter Summary ---
Author Organization [facility] Address [address] [place] [address] Care Team Providers Care Vehicle Mechanic Name Role Phone Unknown, Provider Primary Care Provider Encounter Details Date Type Department Care Team (Late st Contact Info) Description 11/05/[address] [facility] Pathology & Laboratory Medicine - [facility] [address] [place] [address] Outr Resulting Lab, Provider Social History Tobacco Use Types Packs/Day [...] Procedure Name Priority Date/Time Associated Diagnosis Comments ZZCOVID-19 TEST [facility] PCR Today 11/04/2021 14:00 EDT COVID-19 TESTING Routine 11/04/2021 14:0 0 EDT documented in this encounter Results * COVID-19 TEST [facility] PCR (11/04/2021 14:00 EDT) Swab 11/04/2021 14:0 0 EDT 11/05/2021 15:06 EDT Provider Outr Resulting Lab MICROBIOLOGY - GENERAL ORDERABLES [facility] [address] [place] [address] * COVID-19 TESTING (11/04/2021 14:00 EDT) COVID-19 rt-PCR Result Negative Negative 11/05/2021 19:03 EDT [facility] Comment: This test has not been FDA cleared or approved. This test has been authorized by FDA under an EUA for use by authorized laboratories. This test has been authorized only for detection of nucleic acid from 2019-nCoV, not for any other viruses or pathogens. This test is only authorized for the duration of the declaration that circumstances exist justifying the authorization of emergency use of in vitro diagnostic tests for detection and/or diagnosis of 2019-nCoV under section 564(b)(1) of Act, 21 U.S.C ?? 360bbb-3(b) (1), unless the authorization is terminated or revoked sooner. Negative results do not preclude 2019-nCoV infection and should not be used as the sole basis for treatment or other patient management decisions. Negative results must be combined with clinical observations, patient history, and epidemiological information. Performed on the [employer] Fusion instrument Performing Lab [facility] 11/05/2021 19:03 EDT [facility] Swab 11/04/2021 14:0 0 EDT 11/05/2021 15:06 EDT Provider Outr Resulting Lab MICROBIOLOGY - GENERAL ORDERABLES [facility] [address] [place] [address] documented in this encounter Visit Diagnoses Not on filedocumented in this encounter Care Teams Vehicle Mechanic Relationship Specialty Start Date End Date Unknown, Provider, PCP - General 07/22/20 documented as of this encounter
--- OUTSIDE RECORDS SUMMARY | 2024-03-27 21:02 | XMS_ITS | Encounter Summary ---
Author Organization [facility] Address [facility] [place] [address] Care Team Providers Care Helicopter Dispatcher Name Role Phone Lauren Estelajoe Delgado DO Primary Care Provider [phone]- [phone] Encounter Details Date Type Department Care Team (Late st Contact Info) Description 07/04/2023 Telephone Dermatology at [facility] [address] [place] [address] Andesron Vital MD [facility] [address] [place] [address] Social History Tobacco Use Types Packs/Day Years Used Date Smoking Tobacco: Never Smokeless Tobacco: Never Sex and Gender Information Value Date Recorded Sex Assigned at Not on file Gender Identity Not on file Sexual Orientation Not on file documented as of this encounter Miscellaneous Notes * Telephone Encounter - Cathy Bar LPN - 07/04/2023 2:45 PM EST Mohs consultation and preoperative note (H&P) Patient Name: Zayra Suarez Age: 62 y.o. Date of : 1960 Today's Date: 07/04/2023 REFERRING PROVIDER: JOSE Wells CC: Mohs micrographic surgery for treatment of a cutaneous tumor HPI: Zayra Suarez is a 62 y.o. female presenting for biopsy-proven Basal Cell Carcinoma location on the Left Sideburn. The dermatologic preoperative information sheet was reviewed [...] have any concerns regarding your upcoming surgery-No We ask patients to discontinue Fish oil/Multivitamin/Vit E/?? supplements and natural medicines not prescribed by a physician 1 week prior to surgery. SOCIAL HISTORY: Makes Own Decisions Yes Hearing aid or other devices: No Relevant travel history or future plans: No Tobacco use (amount per day, type of tobacco):No Do you have any physical limitations that may affect your surgery-No ALLERGIES: Allergies reviewed MEDICATIONS: Medications reviewed documented in this encounter Plan of Treatment Not on file documented as of this encounter Visit Diagnoses Not on filedocumented in this encounter Care Teams Helicopter Dispatcher Relationship Specialty Start Date End Date Estela Aguilar DO [address] [place] [address] PCP - General Family Medicine 12/22/19 documented as of this encounter
--- OUTSIDE RECORDS SUMMARY | 2024-03-27 21:02 | XMS_ITS | Encounter Summary ---
Author Organization [facility] Address [facility] [place] [address] Care Team Providers Care Wood Drilling Machine Operator Name Role Phone Estela Aguilar DO Primary Care Provider +1- [phone] Reason for Referral * Consultation (Routine) - Authorized Specialty Diagnoses / Procedures Referred By Renzo t Referred To Contact Dermatology Diagnoses Basal cell carcinoma (BCC) of skin of face, unspecified part of face Maicol Bazan MD [address] [place] [address] [place] [address] Anderson Vital MD [facility] [place] [address] Referral ID Status Reason Start Date Expiration Date Visits Requested Visits Authorized [id number] Authorized Consult, Test & Treat PCP Updated and/or Approved 06/03/2024 6 6 Encounter Details Date Type Department Care Team (Late st Contact Info) Description 06/04/2023 Transcribe Orders eDH Incoming Referrals [phone] Maicol Bazan MD [address] [place] [address] [place] [address] Basal cell carcinoma (BCC) of skin of face, unspecified part of face Social History Tobacco Use Types Packs/Day Years Used Date Smoking Tobacco: Never Smokeless Tobacco: Never Sex and Gender Information Value Date Recorded Sex Assigned at Not on file Gender Identity Not on file Sexual Orientation Not on file documented as of this encounter Plan of Treatment Scheduled Referrals Name Type Priority Associated Diagnoses Orde r Schedule Referral to Dermatology Outpatient Referral Routine Basal cell carcinoma (BCC) of skin of face, unspecified part of face Ordered: 06/04/2023 documented as of this encounter Visit Diagnoses Diagnosis Basal cell carcinoma (BCC) of skin of face, unspecified part of face documented in this encounter Care Teams Wood Drilling Machine Operator Relationship Specialty Start Date End Date Estela Aguilar DO [address] [place] [address] PCP - General Family Medicine 12/22/19 documented as of this encounter
--- OUTSIDE RECORDS SUMMARY | 2024-03-27 21:02 | XMS_ITS | Encounter Summary ---
Author Organization [facility] [place] [address] Care Team Providers Care Casing Splitter Name Role Phone Estela Aguilar DO Primary Care Provider +1- [phone] Encounter Details Date Type Department Care Team (Latest Contact Info) Description 05/31/2023 3:58 PM EST - 05/31/2023 11:59 PM EST Hospital [place] [id number] Discharge Disposition: Home Social History Tobacco Use Types Packs/Day Years Used Date Smoking Tobacco: Never Smokeless Tobacco: Never Sex and Gender Information Value Date Recorded Sex Assigned at Not on file Gender Identity Not on file Sexual Orientation Not on file documented as of this encounter Medications at Time of Discharge Medication Sig Dispensed Refills Start Date End Date mecobalamin, vitamin B12, 1,000 mcg Tablet, Rapid Dissolve Daily 12/18/2019 albuteroL (PROVENTIL) 2.5 mg /3 mL (0.083 %) Solution for Nebulization 09/02/2019 07/30/2023 Proventil HFA 90 mcg/actuation HFA Aerosol Inhaler 09/02/2019 07/30/2023 Ascorbate Calcium 500 mg Tablet Daily 0 07/30/2023 Calcium Carb-Magnesium Carb 250-300 mg Tablet 2 tablets. 12/18/2019 07/30/2023 Guaiatussin AC 10-100 mg/5 mL Liquid 09/02/2019 07/30/2023 Katerina Porter [facility] Spacer 09/02/2019 07/30/2023 predniSONE (Deltasone) 20 mg Tablet 09/08/2019 07/30/2023 documented as of this encounter Plan of Treatment Not on file documented as of this encounter Procedures Procedure Name Priority Date/Time Associated Diagnosis Comments SURGICAL PATHOLOGY REPORT Routine 05/31/2023 3:58 PM EST documented in this encounter Results * (ABNORMAL) Surgical Pathology Report (05/31/2023 3:58 PM EST) Final Diagnosis [id number] ? Location: [facility] The signing pathologist has (i) examined the relevant preparation(s) for the specimen(s) and (ii) rendered or confirmed the diagnosis(es). . ?Surgical Pathology DIAGNOSIS CONSULTATION CASE A - Outside slide(s) labeled [id number], collection date 04/09/2023. Left cheek, skin shave biopsy - ??Consistent with surface of ??basal cell carcinoma, transected B - Outside slide(s) labeled [id number], collection date 05/21/2023. Left sideburn, skin excision - ??Basal cell carcinoma, superficial, nodular and infiltrating types, present at the peripheral margin - Reparative changes consistent with previous operative site Electronically signed by: ?Martin ZHENG, Camille Verified: ??06/03/2023 13:58 ??Dermatopatholog ist Performed at: ??-[facility] of [facility]ology, [place] [address] Home Performance Laborer: Brea Frank MD, FCAP, ??CLIA Certificate: [id number] DISCUSSION THIS RESULT REQUIRES PHYSICIAN/A.P.P. FOLLOW UP ADDITIONAL STUDIES A, B - ??The biopsy reports from the outside facility ([facility]: [id number], [id number]) have been examined. The spelling of the patient's last name ( Ngdung) on that documentation is noted; the spelling of the name in our system (Ng Dung) has been verified against those on the demographic sheet, ? eDH , and insurance information, as per our laboratory's director supplier quality practices. Aspects of this case were communicated to the outside laboratory's pathologist by email on 2022. SPECIMEN(S) SUBMITTED CONSULTATION CASE A - 1 slide(s) labeled [id number], collection date 04/09/2023. B - 4 slide(s) labeled [id number], collection date 05/21/2023. [id number] CARBON COPY: [facility] Surgical Pathology Department [facility], [facility], 2nd Floor [address] [place], [place] ??[address] CLINICAL INFORMATION A - L cheek lesion ??hx ??sun exposure B - BCCA SPECIMEN PROCESSING [facility] ([facility]) pathology slide(s) are reviewed. Refer to Diagnosis and Specimen Submitted for specific case information. . SPECIMEN PROCESSING For the full text of the [facility] report(s) please refer to the Chart Review Media tab in the electronic health record ( ??eDH).(A) 06/03/2023 1:58 PM EST [facility] Consult Case 05/31/2023 3:58 PM EST 05/31/2023 3:58 PM EST Consult Case 05/31/2023 3:58 PM EST 05/31/2023 3:58 PM EST Anderson Vital MD PATHOLOGY/CYTOLOGY ORDERABLES Performing Organization Address City/State/[facility] Co de Phone Number [facility] [place] [address] [facility] [place] [address] documented in this encounter Visit Diagnoses Not on filedocumented in this encounter Care Teams Casing Splitter Relationship Specialty Start Date End Date Estela Aguilar DO [address] [place] [address] PCP - General Family Medicine 12/22/19 documented as of this encounter
--- OUTSIDE RECORDS SUMMARY | 2024-03-27 21:02 | XMS_ITS | Encounter Summary ---
Author Organization [facility] Address [address] [place] [address] Care Team Providers Care Tinsmith Helper Name Role Phone Unknown, Provider Primary Care Provider [phone] Encounter Details Date Type Department Care Team (Late st Contact Info) Description 08/23/2020 Lab Requisition [facility] Pathology & Laboratory Medicine - [facility] [address] [place] [address] Lakshmi Russell [address] [place] [address] [place] [address] Encounter for other general examination Social History Tobacco Use Types Packs/Day Years [...] Procedure Name Priority Date/Time Associated Diagnosis Comments PAP TEST Today 08/22/2020 15:42 EST Encounter for other general examination HPV DNA DETECTION WITH GENOTYPING, PCR Today 08/22/2020 15:42 EST Encounter for other general examination documented in this encounter Results * HUMAN PAPILLOMAVIRUS (HPV) DETECTION-HIGH RISK TYPES (08/22/2020 15:42 EST) HPV other High Risk types, PCR Negative Negative 08/31/2020 15:13 EST [facility] Comment:No E6 or E7 mRNA is detected from HPV types 16,18,31,33,35,39,45,51,52,56,58,59,66, and 68 by protection mgr mediated amplification. Papanicolaou smear specimen (specimen) CERVIX UTERI STRUCTURE / Unknown 08/22/2020 15:42 EST 08/29/2020 16:38 EST Lakshmi Russell MICROBIOLOGY - GENER AL ORDERABLES [facility] [address] [place] [id number] * PAP TEST (08/22/2020 15:42 EST) Specimens A. Cervix and/or Endocervix , ThinPrep Imaging System with Manual Evaluation 08/31/2020 15:13 [facility] Specimen Adequacy Satisfactory for Evaluation - transformation zone component present Scant squamous epithelial component, contamination present, possibly lubricant 08/31/2020 15:13 [facility] General Categorization Negative for intraepithelial lesion or malignancy 08/31/2020 15:13 [facility] Attestation . 08/31/2020 15:13 [facility] at 1513 Clinical History See below 08/31/19 15:13 [facility] HPV The result for the Human Papillomavirus (HPV) Detection-High Risk Types is Negative. No E6 or E7 mRNA is detected from HPV types 16,18,31,33,35,39 ,45,51,52,56,58,5 9,66, and 68 by protection mgr mediated amplification.Ashli ting was performed on specimen [id number] and was resulted on 08/31/2020 1415 EST by MARGARETH, LAB INSTRUMENT RESULTS IN 08/31/2020 15:13 [facility] Performing Lab [facility] 08/31/2020 15:13 [facility] Scanned Images 08/31/2020 15:13 [facility] Papanicolaou smear specimen (specimen) CERVIX UTERI STRUCTURE / Unknown 08/22/2020 15:42 EST 08/23/2020 9:58 EST Lakshmi Russell PATHOLOGY ORDERABLES [facility] [address] [place] [address] documented in this encounter Visit Diagnoses Diagnosis Encounter for other general examination documented in this encounter Care Teams Tinsmith Helper Relationship Specialty Start Date End Date Unknown, Provider, PCP - General 07/22/20 documented as of this encounter
--- OUTSIDE RECORDS SUMMARY | 2024-03-27 21:02 | XMS_ITS | Encounter Summary ---
Author Organization [facility] Address [facility] [place] [address] Care Team Providers Care Retread Mold Operator Name Role Phone Estela Aguilar DO Primary Care Provider [phone] Encounter Details Date Type Department Care Team (Late st Contact Info) Description 04/01/2020 Notes Only Hematology [place] [address] Elijah Montana MD [facility] DR HEMATOLOGY/ONCOLOGY [place] [id number] Social History Tobacco Use Types Packs/Day Years Used Date Smoking Tobacco: Never Smokeless Tobacco: Never Sex and Gender Information Value Date Recorded Sex Assigned at Not on file Gender Identity Not on file Sexual Orientation Not on file documented as of this encounter Progress Notes * Elijah Montana MD - 04/01/2020 7:28 AM EDT I have reviewed the patient's record and given personal and/or family history of cancer she should be seen by genetic counselor. This is scheduled for next week. documented in this encounter Plan of Treatment Not on file documented as of this encounter Visit Diagnoses Not on filedocumented in this encounter Care Teams Retread Mold Operator Relationship Specialty Start Date End Date Etsela Aguilar DO [address] [place] [address] PCP - General Family Medicine 12/22/19 documented as of this encounter
--- OUTSIDE RECORDS SUMMARY | 2024-03-27 21:02 | XMS_ITS | Encounter Summary ---
[place] [address] Care Team Providers Care Assistant Product Manager Name Role Phone QueenieEstela mejia Danny MAGAÑA Primary Care Provider [phone] Encounter Details Date Type Department Care Team (Late st Contact Info) Description 03/02/2024 Interpretation Only [address] [id number] Axel Rojo MD [address] [place] [address] Social History Tobacco Use Types Packs/Day Years Used Date Smoking Tobacco: Never Smokeless Tobacco: Never Sex and Gender Information Value Date Recorded Sex Assigned at Not on file Gender Identity Not on file Sexual Orientation Not on file documented as of this encounter Plan of Treatment Not on file documented as of this encounter Procedures Procedure Name Priority Date/Time Associated Diagnosis Comments XR ABDOMEN 1 VIEW Routine 03/02/2024 2:0 3 PM EDT documented in this encounter Results * XR Abdomen 1 view (Generic) (03/02/2024 2:03 PM EDT) PT CLASS O RAD ADMITDTTM [id number] RAD PT RAD INFO [id number]^Alia ^Axel RAD EXAM DESC XABD1^XR Abdomen KUB 1 View^RIS RAD WORKSTATION ID [id number] RAD Anatomical Region Laterality Modality Abdomen N/A Radiographic Cindy ging 03/02/2024 1:59 PM EDT Impressions 03/02/2024 2:59 PM EDT 6 mm left renal calculus. No radiographically evident right renal calculus. I have personally reviewed the image(s) and the resident's interpretation and agree with the findings, Vasyl Miranda MD at 03/02/2024 2:59 PM Thank you for letting us participate in the care of this patient. ??If you are a health care provider and have any questions regarding this report, please contact the number below. ??For patients who have questions please contact the health director career that requested your imaging first. ? Electronically signed by: Vasyl Miranda MD, [facility] ([phone]), at 03/02/2024 2:59 PM Narrative 03/02/2024 2:59 PM EDT EXAMINATION: XR Abdomen KUB 1 View CLINICAL HISTORY: Right ureteral calculus TECHNIQUE: AP supine view of the abdomen. COMPARISON: None FINDINGS: The kidneys are partially obscured by overlying stool. There is a 6 mm left lower pole calculus. No appreciable right renal calculus. Overall paucity of small bowel gas without appreciable dilatation. Nondilated stool-filled loops of large bowel. Moderate pancolonic stool burden. Visualized right lung base is clear. No acute osseous normality. Procedure Note Vasyl Miranda MD - 03/02/2024 EXAMINATION: XR Abdomen KUB 1 View CLINICAL HISTORY: Right ureteral calculus TECHNIQUE: AP supine view of the abdomen. COMPARISON: None FINDINGS: The kidneys are partially obscured by overlying stool. There is a 6 mmleft lower pole calculus. No appreciable right renal calculus. Overall paucity of small bowel gas without appreciable dilatation.Nondilated stool-filled loops of large bowel. Moderate pancolonic stool burden. Visualized right lung base is clear. No acute osseous normality. IMPRESSION 6 mm left renal calculus. No radiographically evident right renal calculus. I have personally reviewed the image(s) and the resident's interpretationand agree with the findings, Vasyl Miranda MD at 03/02/2024 2:59 PM Thank you for letting us participate in the care of this patient. If youare a health care provider and have any questions regarding this report,please contact the number below. For patients who have questions please contactthe health director career that requested your imaging first. Axel Rojo MD IMG DX ORDERABLES documented in this encounter Visit Diagnoses Not on filedocumented in this encounter Care Teams Assistant Product Manager Relationship Specialty Start Date End Date Estela Aguilar DO [address] [place] [address] PCP - General Family Medicine 12/22/19 documented as of this encounter
--- OUTSIDE RECORDS SUMMARY | 2024-03-27 21:02 | XMS_ITS | Encounter Summary ---
Author Organization [facility] Address [address] [place] [address] Care Team Providers Care Commercial Escrow Officer Name Role Phone Unknown, Provider Primary Care Provider Encounter Details Date Type Department Care Team (Late st Contact Info) Description 10/14/2020 Lab Requisition [facility] Pathology & Laboratory Medicine - [facility] [address] [place] [address] Lakshmi Russell [address] [place] [address] [place] [address] Encounter for other general examination [...] Date/Time Associated Diagnosis Comments SURGICAL PATHOLOGY Today 10/13/2020 15 :10 EDT Encounter for other general examination documented in this encounter Results * SURGICAL PATHOLOGY (10/13/2020 15:10 EDT) Final Diagnosis A. SUBMITTED ENDOCERVICAL POLYP, BIOPSY: - Polypoid fragment of squamous epithelium and cervical stroma. - Benign endocervical cells. B. ENDOMETRIUM, BIOPSY: - Strips of atrophic endometrium. - Benign endocervical cells. 10/18/2020 12:07 EDT [facility] Diagnosis Comment Byproducts Extractor slides of this case were reviewed at the intradepartmental consultation conference. 10/18/2020 12:07 [facility] Attestation By the signature below, the attending physician certifies that they have 1) personally conducted a gross and/or microscopic examination of the described specimen(s), and/or personally interpreted the results of laboratory testing of the described specimen(s), and 2) personally rendered or confirmed the above diagnosis. 10/18/2020 12:07 [facility] at 1207 Clinical History Thick endocervix; postmenopausal bleeding 10/18/2020 12:07 [facility] Gross Description A. Received in formalin labelled with proper patient identification (initials N, D) and polyp endocervical is an aggregate of blood-tinged mucin (1.2 x 1.1 x 0.3 cm). The specimen is submitted in A1. B. Received in formalin labelled with proper patient identification (initials N, D) and endometrium Bx is a scant amount of mucin (0.6 x 0.5 x 0.3 cm). The specimen is submitted in B1. JOSE TOURE(ASCP) 10/14/2020 16:35 10/18/2020 12:07 T [facility] Performing Lab [facility] 10/18/2020 12:07 [facility] Scanned Images 10/18/2020 12:07 [facility] Tissue ENTIRE ENDOMETRIUM / Unknown 10/13/2020 15:10 EDT 10/14/2020 16:01 EDT Tissue specimen (specimen) ENDOMETRIAL STRUCTURE / Unknown 10/13/2020 15:10 EDT 10/14/2020 16:01 EDT Lkashmi Russell PATHOLOGY ORDERABLES [facility] [address] [place] [address] documented in this encounter Visit Diagnoses Diagnosis Encounter for other general examination documented in this encounter Care Teams Commercial Escrow Officer Relationship Specialty Start Date End Date Unknown, Provider, PCP - General 07/22/20 documented as of this encounter
--- OUTSIDE RECORDS SUMMARY | 2024-03-27 21:02 | XMS_ITS | Encounter Summary ---
Author Organization [facility] Address [facility] [place] [address] Care Team Providers Care Yard Person Name Role Phone Lauren Estelajoe Delgado DO Primary Care Provider [phone]- [phone] Reason for Visit * Reason Comments Basal Cell Carcinoma * Consultation (Routine) - Authorized Specialty Diagnoses / Procedures Referred By Contmatthew t Referred To Contact Dermatology Diagnoses Basal cell carcinoma (BCC) of skin of face, unspecified part of face Maicol Bazan MD [address] [place] [address] [place] [address] Anderson Vital MD [facility] [place] [address] Referral ID Status Reason Start Date Expiration Date Visits Requested Visits Authorized [id number] Authorized Consult, Test & Treat PCP Updated and/or Approved 3 06/03/2024 6 6 Encounter Details Date Type Department Care Team (Latest Contact Info) Description 07/30/2023 8:00 AM EST Procedure visit Dermatology at [facility] [address] [place] [address] Anderson Vital MD [facility] [place] [address] Basal cell carcinoma (BCC) of sideburn area Social History Tobacco Use Types Packs/Day Years Used Date Smoking Tobacco: Never Smokeless Tobacco: Never Sex and Gender Information Value Date Recorded Sex Assigned at Not on file Gender Identity Not on file Sexual Orientation Not on file documented as of this encounter Last Filed Vital Signs Vital Sign Reading Time Taken Comments Blood Pressure 116/71 07/30/2023 8:08 AM EST Pulse 75 07/30/2023 8:08 AM EST Temperature - - Respiratory Rate - - Oxygen Saturation - - Inhaled Oxygen Concentration - - Weight - - Height - - Body Mass Index - - documented in this encounter Progress Notes * Cookie Noland RN - 07/30/2023 8:00 AM EST Images from the original note were not included. Summary of Procedure(s): Site: left sideburn Tumor Type: Basal Cell Carcinoma, superficial, nodular, and infiltrating types, previously excised with positive margins Stages to clear tumor: 2 Repair: banner transposition flap Images: The patient was asked to call with any issues and is aware that I am available 11/02 should questions arise. Anderson Vital MD PhD Mohs Micrographic Surgery and Dermatologic Oncology Department of Dermatology Please note that I have reviewed the preoperative checklist from today's nursing visit including relevant social history and medications. I have reviewed the preoperative photos if available and the biopsy report. VITAL SIGNS: BP 116/71 (BP Location (NBP): Left arm, Patient Position: Sitting, BP Cuff Sizes: Adult (25-34 cm)) Pulse 75 PHYSICAL EXAMINATION: General: patient is awake, alert, oriented and in no acute distress. Skin: Focused examination of surgical site(s) performed which shows a well healed incision with poorly defined pearly plaque. PHYSICIAN REVIEW OF REPORTS, RECORDS, IMAGES: 1) The accompanying pathology report(s) associated with aforementioned biopsy slide(s) were/was also reviewed. Assessment: Zayra Suarez is a 62 y.o. female presenting for: 1. Biopsy-proven basal cell carcinoma, superficial, nodular, and infiltrating types, located on theleft sideburn. Plan: 1. Findings from the biopsy report, today's clinical exam, and other pertinent details were reviewed with patient today. All questions were answered. 2. Discussed treatment options based on the above findings. We recommended Mohs micrographic surgery for treatment of this tumor. Mohs micrographic surgery was indicated due to patient, site and/or tumor characteristics (see operative report for specific indication). 3. We discussed risks, benefits, and alternative treatment options to the Mohs micrographic surgeryprocedure and pertinent information including but not limited to the following: Risks include bleeding, infection, scar, recurrence, incomplete tumor removal or inability to cure with surgery alone if the tumor features are more aggressive than the initial pathology indicates. Occasionally, additional adjuvant treatments may be recommended. Additional risks include large wound, prolonged wound and healing, pain, swelling, bruising, increased appearance of vessels or worsening erythema of baseline skin; more rarely risks include damage to underlying structures such as nerves, cartilage, or muscle which could lead to temporary or permanent loss of sensation or motor function. Benefit is precise tumor removal If reconstruction is performed, it is specific to the patient and defect. Discussed that the shape, size, depth of the wound is often not known until the tumor is cleared and thus the reconstruction options are sometimes not known until after tumor clearance. Occasionally,referrals to other providers may be recommended for reconstruction based on patient preference and need. Reviewed the pros and cons of common reconstructions used for this tumor type, size, and location, and that reconstruction may lead to change in appearance. Natural history of scar was discussed, including that the scar will continue to mature for 1-2 years. Recommended avoidance of special ointments or scar creams, and avoidance of direct sun exposure to the scar for optimal recovery. Reviewed that there are some aspects of cosmesis that are dependent on patient's characteristics such as age, skin laxity/texture factors, inflammatory skin diseases such as rosacea, prior surgery/radiation, degree of actinic damage, smoking status, strength of the patient's immune system, diligentwound care, medications, and genetics. Having Mohs surgery may lead to physical limitations for optimal healing, such as restricted physical activity and heavy lifting. 4. Signs and symptoms of skin cancer reviewed. Patient to report any new, changing, or symptomatic lesions and follow up with his or her heating plant superintendent or other skin provider. 5. Discussed avoiding direct sun exposure to scars for best cosmetic result. Note initiated by Cookie Noland RN Cookie Noland RN has performed the documentation for this encounter in the presence of and acting as a scribe for Dr. Vital I performed the above scribed service and agree with the accuracy of the documentation in this encounter. Reviewed and signed by: Anderson Vital Dermatology [facility] * Anderson Vital MD - 07/30/2023 8:00 AM EST Mohs micrographic Surgery Operative Report Patient name: Zayra Suarez : 1960 Date: 07/30/2023 Staff Surgeon and Pathologist: Anderson Vital MD PhD Nursing/Putty Maker(s): Carol Ann Harris RN, Cookie Noland RN, Gely Rajan ANIMATION DIRECTOR, Cathy Mcqueen-Elton EVANGELISTAN, Randell Rosario CMA, Lizzy López LPN, Angelique COOPER Manufacturing Applications Engineer (s): Randell Godinez CMA Pre-operative diagnosis: Basal Cell Carcinoma, superficial, nodular, and infiltrating types, excised with positive margins Post-operative diagnosis: same Location/Site: left sideburn Procedure: Mohs micrographic surgery Indication(s) for Mohs micrographic surgery: Anatomic location for tissue conservation and >2cm Size Stages: 2 Preoperative size of tumor: 2.2 x 1.3 cm Stage I The nature and purpose of the procedure, associated risks, possible consequences and complications,and alternative forms of treatment were explained in detail. We reviewed the possible repairs basedon the clinical appearance of tumor but discussed that often the repair options may not be known until the tumor has maik extirpated. Informed consent and permission to take photographs were obtained. The site was confirmed with the patient/authorized logistics service representative/referring physician and/or a photograph form time of biopsy. A pre-operative time-out (procedural pause) was conducted with no unresolved discrepancies noted. Local anesthesia was obtained with 0.5 % lidocaine with 1:200,000 epinephrine. The surgical site was prepped and draped in the usual sterile manner. A 1-2 mm margin was excised around clinically evident tumor as a complete layer. Hemostasis was achieved by electrocoagulation. The excised tissue was oriented and divided into 2 sections, chromacoded, and submitted for frozen sections. The patient tolerated the procedure well and without complications. On my personal microscopic evaluation of the frozen sections, residual tumor was identified as SUPERFICIAL BASAL CELL CARCINOMA - Extending from the epidermis and superficial hair follicles are multicentric buds of basaloid keratinocytes. The nuclei at the periphery of the islands have a palisaded arrangement. The tumor islands are associated with a fibromyxoid stroma and there is cleft formationbetween some of the islands and stroma. on section A1 and A2 (see section number on map). Stage II The surgical site was re-anesthetized with 0.5 % lidocaine with 1:200,000 epinephrine, re-prepped and redraped in a sterile manner. The residual tumor was re-excised as a complete layer 2-3mm in thickness using the Mohs map to delineate area of residual tumor. Hemostasis was achieved with electrocoa gulation. The tissue was oriented and divided into 1 section, chromacoded, and submitted for frozensections. The patient tolerated the procedure well and without complications. On my personal microscopic evaluation of the frozen sections, no residual tumor was identified on the deep or outer border of the sections. Depth of excision subcutaneous tissue Final defect size: 4.2 x 2.9 cm Anderson Vital MD PhD Mohs Micrographic Surgery and Dermatologic Oncology Department of Dermatology [address] [place] [address] Repair Report (Flap) Patient name: Zayra Suarez Staff Surgeon: Anderson Vital MD PhD Hall Director(s): same as above economist research assistant: Lamin Ocampo MD and Cookie Noland RN Date: 07/30/2023 Clinical Diagnosis: skin and soft tissue defect status post Mohs micrographic surgery Location/Site: left sideburn Indication: repair of wound with bahai of anatomy/function Defect size to be repaired: 4.2 x 2.9 cm Procedure: banner transposition flap repair (tissue rearrangement) Final flap size: 6 x 6 cm 2 Procedure Details: Due to the size and location of the defect resulting from the complete removal of the tumor, the postoperative risk of hemorrhage, infection, and the possibility of serious deformity from scarring, and in order to restore proper function and prevent loss of function, the defect was closed with a flap. The nature and purpose of the procedure, associated risks, possible consequences, complications andalternative methods of treatment were explained to the patient in detail. An informed consent was obtained. Local anesthesia was obtained with a solution of 0.5 % lidocaine with 1:200,000 epinephrine. The surgical site was prepped and draped in the usual sterile manner. Any beveled edges of the defect were repaired with a scalpel blade. The flap was created by making incisions along left catholic and left preauricular cheek. The flap and the wound edges were undermined, and hemostasis was obtained with electrocoagulation. The flap wastransposed onto the defect. The skin edges were closed using 4-0 Monocryl dermal/subcutaneous sutures and 5-0/6-0 Prolene skin sutures. Final flap size: 6 x 6 cm2. Estimated blood loss: Minimal. Compl ications: None. Wound care: Routine. Follow up for suture removal in 7 days. The patient was discharged in good condition. Total anesthesia used today of 0.5 % lidocaine with 1:200,000 epinephrine: 21 cc Preoperative Medications: None Post-operative medications: none Anderson Vital MD PhD Mohs Micrographic Surgery and Dermatologic Oncology Department of Dermatology [address] [place] [address] Note initiated by Cookie Noland RN. Cookie Noland RN has performed the documentation for this encounter in the presence of and acting as a scribe for Dr. Vital I performed the above scribed service and agree with the accuracy of the documentation in this encounter. Reviewed and signed by: Anderson Vital Dermatology [facility] documented in this encounter Plan of Treatment Scheduled Referrals Name Type Priority Associated Diagnoses Orde r Schedule Referral to Dermatology Outpatient Referral Routine Basal cell carcinoma (BCC) of skin of face, unspecified part of face Ordered: 06/04/2023 documented as of this encounter Visit Diagnoses Diagnosis Basal cell carcinoma (BCC) of sideburn area documented in this encounter Care Teams Yard Person Relationship Specialty Start Date End Date Estela Aguilar DO [address] [place] [address] PCP - General Family Medicine 12/22/19 documented as of this encounter
--- OUTSIDE RECORDS SUMMARY | 2024-03-27 21:02 | XMS_ITS | Encounter Summary ---
Author Organization [facility] Address [address] [place] [address] Care Team Providers Care Webfocus Developer Name Role Phone Unknown, Provider Primary Care Provider Encounter Details Date Type Department Care Team (Late st Contact Info) Description 10/16/2020 Lab Requisition [facility] Pathology & Laboratory Medicine - [facility] [address] [place] [address] Outr Resulting Lab, Provider Social History Tobacco [...] Comments ZZCOVID-19 TEST [facility] PCR Today 10/16/2020 9:20 EDT COVID-19 TESTING Routine 10/16/2020 9:20 EDT documented in this encounter Results * COVID-19 TEST [facility] PCR (10/16/2020 9:20 EDT) Swab ENTIRE NASOPHARYNX / Unknown 10/16/2020 9:20 EDT 10/16/2020 19:39 EDT Provider Outr Resulting Lab MICROBIOLOGY - GENERAL ORDERABLES [facility] [address] [place] [address] * COVID-19 TESTING (10/16/2020 9:20 EDT) COVID-19 rt-PCR Result Negative Negative 10/16/2020 22:18 EDT [facility] Comment: This test has [...] history, and epidemiological information. Performed on the [employer] instrument Performing Lab [place] [facility] 10/16/2020 22:18 EDT [facility] Swab 10/16/2020 9:20 EDT 10/16/2020 19:39 EDT Provider Outr Resulting Lab MICROBIOLOGY - GENERAL ORDERABLES Performing Organization Address City/State/[facility] Co de Phone Number [facility] [address] [place] [address] documented in this encounter Visit Diagnoses Not on filedocumented in this encounter Care Teams Webfocus Developer Relationship Specialty Start Date End Date Unknown, Provider, PCP - General 07/22/20 documented as of this encounter
--- OUTSIDE RECORDS SUMMARY | 2024-03-27 21:02 | XMS_ITS | Encounter Summary ---
Author Organization [facility] [place] [address] [place] [address] Care Team Providers Care Records Manager Name Role Phone Lauren Estelajoe Delgado DO Primary Care Provider [phone]- [phone] Encounter Details Date Type Department Care Team (Late st Contact Info) Description 02/25/2020 Telephone [place] [id number] Contreras Johansen RN Social History Tobacco Use Types Packs/Day Years Used Date Smoking Tobacco: Never Smokeless Tobacco: Never Sex and Gender Information Value Date Recorded Sex Assigned at Not on file Gender Identity Not on file Sexual Orientation Not on file documented as of this encounter Miscellaneous Notes * Telephone Encounter - Contreras Johansen RN - 02/25/2020 4:21 PM EDT Returned call to pt to discuss note from Dr Washington. She verbalized understanding. She plans to get back to us with a call or a Doodle message with her decision about the Fosamax. * Telephone Encounter - Contreras Johansen RN - 02/25/2020 4:21 PM EDT ----- Message from Walter Washington MD sent at 02/24/2020 4:02 PM EDT ----- Regarding: FW: Unread Message Notification Contreras, Definitely not urgent, but she did not review the result. When you get a chance please let her knowand see if she wants to proceed with fosamax, thanks Dionicio ----- Message ----- From: Walter Washington MD Sent: 02/10/2020 To: Zayra Suarez Subject: Unread Message Notification Ms Zayra Suarez I received your lab results. They were normal. Your Vitamin D was on the lower end of normal: I recommend taking an additional 1000 IU Vitamin D3 daily (over the counter) to ensure you have a sufficient amount especially in the winter months Based on these results, I recommend proceeding with the fosamax. Let me know if you agree with this, and I can send it in to your pharmacy [facility] Washington documented in this encounter Plan of Treatment Not on file documented as of this encounter Visit Diagnoses Not on filedocumented in this encounter Care Teams Records Manager Relationship Specialty Start Date End Date Estela Aguilar DO [address] [facility] [place] [address] PCP - General Family Medicine 12/22/19 documented as of this encounter
--- OUTSIDE RECORDS SUMMARY | 2024-03-27 21:02 | XMS_ITS | Encounter Summary ---
Author Organization [facility] Address [address] [place] [address] Care Team Providers Care Salt Miner Name Role Phone Unknown, Provider Primary Care Provider [phone] Encounter Details Date Type Department Care Team (Late st Contact Info) Description 05/22/2023 Lab Requisition [facility] Pathology & Laboratory Medicine - [address] [address] Maicol Bazan MD [address] [place] [id number] Disorder of the skin and subcutaneous tissue, unspecified Social History Tobacco Use Types Packs/Day Years [...] Date/Time Associated Diagnosis Comments SURGICAL PATHOLOGY Today 05/21/2023 7: 45 EDT Disorder of the skin and subcutaneous tissue, unspecified documented in this encounter Results * SURGICAL PATHOLOGY (05/21/2023 7:45 EDT) Note to Patient The following pathology results have been interpreted by your pathologist and may be available to you before your health provider has had the opportunity to review them. Please allow time for your provider to receive these results and explore management options, if applicable. 05/23/2023 11:22 EDT [facility] Final Diagnosis A. SKIN OF SIDEBURN, LEFT, EXCISION: - Basal cell carcinoma, superficial and nodular type. See comment. - Peripheral margin POSITIVE for basal cell carcinoma. - Epidermal reparative change and dermal scar, consistent with biopsy site. 05/23/2023 11:22 [facility] Diagnosis Comment The excision has residual basal cell carcinoma with superficial and nodular growth patterns. In some of the central sections, as well as one of the tips of the excision, basal cell carcinoma is transected at the inked peripheral margin to the level of the mid reticular dermis. 05/23/2023 11:22 [facility] Attestation By the signature below, the attending physician certifies that they have 1) personally conducted a gross and/or microscopic examination of the described specimen(s), and/or personally interpreted the results of laboratory testing of the described specimen(s), and 2) personally rendered or confirmed the above diagnosis. 05/23/2023 11:22 [facility] at [address] Microscopic Description Emanating from the epidermis and present within the dermis are irregularly shaped islands of atypical basal cells. The basal cells have scant cytoplasm and round dark nuclei. Mitotic figures and apoptotic bodies are evident. The nuclei at the periphery of the islands have a palisaded arrangement. The islands are associated with a fibromyxoid stroma and there is cleft formation between some of the islands and stroma. 05/23/2023 11:22 [facility] Clinical History BCCA; clinical diagnosis code: L98.9, C44.310 05/23/2023 11:22 [facility] Gross Description A. Received in formalin labelled with proper patient identification (initials N, D) and L sideburn is a 2.8 x 1.5 x 0.5 cm unoriented, elliptical excision of hair-bearing, firm richards skin. The margin is inked. The specimen is serially sectioned and entirely submitted as follows: BLOCK MORROW A1- tips, reverse en face A2-A4- 7 central sections JOSE IBRAHIM(ASCP) 05/22/2023 10:20 05/23/2023 11:22 [facility] Performing Lab [facility] 05/23/2023 11:22 EDT [facility] Scanned Images 05/23/2023 11:22 EDT [facility] Tissue SPECIMEN FROM SKIN / Unknown 05/21/2023 7:45 EDT 05/22/2023 8:55 EDT Maicol Bazan MD PATHOLOGY ORDERABLES [facility] [address] [place] [address] documented in this encounter Visit Diagnoses Diagnosis Disorder of the skin and subcutaneous tissue, unspecified documented in this encounter Care Teams Salt Miner Relationship Specialty Start Date End Date Unknown, Provider, PCP - General 07/22/20 documented as of this encounter
--- OUTSIDE RECORDS SUMMARY | 2024-03-27 21:02 | XMS_ITS | Encounter Summary ---
Author Organization [facility] Address [address] [place] [address] Care Team Providers Care Picker Box Operator Name Role Phone Unknown, Provider Primary Care Provider Encounter Details Date Type Department Care Team (Late st Contact Info) Description 07/23/2021 Lab Requisition [facility] Pathology & Laboratory Medicine - [address] [address] Outr Resulting Lab, Provider Social History Tobacco [...] Comments ZZCOVID-19 TEST [facility] PCR Today 07/22/2021 13:30 EST COVID-19 TESTING Routine 07/22/2021 13:3 0 EST documented in this encounter Results * COVID-19 TEST [facility] PCR (07/22/2021 13:30 EST) Swab 07/22/2021 13:3 0 EST 07/23/2021 18:12 EST Provider Outr Resulting Lab MICROBIOLOGY - GENERAL ORDERABLES [facility] [address] [place] [address] * COVID-19 TESTING (07/22/2021 13:30 EST) COVID-19 rt-PCR Result Negative Negative 07/24/2021 2:10 EST [facility] Comment: This test has [...] history, and epidemiological information. Performed on the [employer] Fusion instrument Performing Lab [place] [facility] 07/24/2021 2:10 EST [facility] Swab 07/22/2021 13:3 0 EST 07/23/2021 18:12 EST Provider Outr Resulting Lab MICROBIOLOGY - GENERAL ORDERABLES [facility] [address] [place] [address] documented in this encounter Visit Diagnoses Not on filedocumented in this encounter Care Teams Picker Box Operator Relationship Specialty Start Date End Date Unknown, Provider, PCP - General 07/22/20 documented as of this encounter
--- OUTSIDE RECORDS SUMMARY | 2024-03-27 21:02 | XMS_ITS | Encounter Summary ---
[place] [address] Care Team Providers Care National Sales Trainer Name Role Phone Estela Aguilar DO Primary Care Provider [phone] Encounter Details Date Type Department Care Team (Latest Contact Info) Description 07/30/2023 Travel Social History Tobacco Use Types Packs/Day [...] on filedocumented in this encounter Care Teams National Sales Trainer Relationship Specialty Start Date End Date Estela Aguilar DO [address] [facility] [place] [address] PCP - General Family Medicine 12/22/19 documented as of this encounter
--- OUTSIDE RECORDS SUMMARY | 2024-03-27 21:02 | XMS_ITS | Clinical Summary ---
Author Organization [facility] [place] [address] Care Team Providers Care Oil Spraying Machine Operator Name Role Phone Estela Aguilar DO Primary Care Provider [phone]- [phone] Allergies No known active allergies Medications Medication Sig Dispensed Refills Start Date End Date Status mecobalamin, vitamin B12, 1,000 mcg Tablet, Rapid Dissolve Daily 12/18/2019 Active magnesium oxide,aspartate,citr (TRIPLE MAGNESIUM COMPLEX ORAL) Take by mouth. Active Capsicum, Cayenne, 450 mg Capsule Take by mouth. Active Active Problems Problem Noted Date Diagnosed Date Osteoporosis 02/05/2020 Encounters Date Type Department Care Team Description 03/02/2024 Interpretation Only [address] [address] Axel Rojo MD from Last 3 Months Family History Medical History Relation Comments Osteoporosis Paternal Grandmother Relation Status Comments Paternal Grandmother Social History Tobacco Use Types Packs/Day Years Used Date Smoking Tobacco: Never Smokeless Tobacco: Never Sex and Gender Information Value Date Recorded Sex Assigned at Not on file Gender Identity Not on file Sexual Orientation Not on file Last Filed Vital Signs Vital Sign Reading Time Taken Comments Blood Pressure 116/71 07/30/2023 8:08 AM EST Pulse 75 07/30/2023 8:08 AM EST Temperature - - Respiratory Rate - - Oxygen Saturation - - Inhaled Oxygen Concentration - - Weight - - Height - - Body Mass Index - - Plan of Treatment Health Maintenance Due Date Last Done Comments CT Colonography 1960 Colonoscopy 1960 Colorectal Cancer Screening 1960 FIT DNA 1960 FIT 1960 Sigmoidoscopy (10 year) with FIT yearly 1960 Sigmoidoscopy 1960 HIV screen 1978 Hepatitis C Screening 1978 Tdap adult 01/01/1980 Tetanus vaccine 01/01/1980 HPV test 1990 PAP Smear 1990 Breast Cancer Share Decision Needed 2000 Breast Cancer screening 2000 Zoster vaccine (1 of 2) 2010 Advance Directive 01/01/2016 Covid-19 Vaccine (1 - season) 2024 Influenza (Flu) vaccine (1 o f 1 - Influenza standard series) 03/22/2024 Procedures Procedure Name Priority Date/Time Associated Diagnosis Comments XR ABDOMEN 1 VIEW Routine 03/02/2024 2:0 3 PM EDT from Last 3 Months Results * XR Abdomen 1 view (Generic) (03/02/2024 2:03 PM EDT) PT CLASS O RAD ADMITDTTM [id number] RAD PT RAD MD INFO [id number]^Alia ^Axel RAD EXAM DESC XABD1^XR Abdomen KUB 1 View^RIS RAD WORKSTATION ID [id number] RAD Anatomical Region Laterality Modality Abdomen N/A [...] who have questions please contact the health child care team lead that requested your imaging first. ? Narrative 03/02/2024 2:59 PM EDT EXAMINATION: XR [...] patients who have questions please contactthe health child care team lead that requested your imaging first. Axel Rojo MD IMG DX ORDERABLES from Last 3 Months Care Teams Oil Spraying Machine Operator Relationship Specialty Start Date End Date Estela Aguilar DO [address] [place] [address] PCP - General Family Medicine 12/22/19
--- OUTSIDE RECORDS SUMMARY | 2024-03-27 21:02 | XMS_ITS | Encounter Summary ---
Author Organization [facility] Address [address] [place] [address] Care Team Providers Care Commission For The Blind Director Name Role Phone Unknown, Provider Primary Care Provider [phone] Encounter Details Date Type Department Care Team (Late st Contact Info) Description 01/28/2023 Lab Requisition [facility] Pathology & Laboratory Medicine - [facility] [address] [place] [address] Outr Resulting Lab, Provider Social History Tobacco [...] Procedure Name Priority Date/Time Associated Diagnosis Comments URIC ACID, URINE 24HR Routine 01/28/2023 5:30 EDT CALCIUM, URINE 24HR Routine 01/28/2023 5:30 EDT PHOSPHOROUS, URINE 24HR Routine 01/28/2023 5:30 EDT MAGNESIUM, URINE 24HR Routine 01/28/2023 5:30 EDT documented in this encounter Results * URIC ACID, URINE 24HR (01/28/2023 5:30 EDT) Uric Acid, Urine 17.8 See Note mg/dL 01/30/2023 9:56 EDT [facility] Comment: NOTE: Reference range not established Uric Acid, Urine 24 hr 347 250 - 750 mg/24hrs 01/30/2023 9:56 T [facility] Urine Volume 1,950 mL 01/30/2023 9:56 [facility] Urine Collection Period 22.0 Hours 01/30/2023 9:56 [facility] Urine 24 HOUR URINE SPECIMEN / Unknown 01/28/2023 5:30 EDT 01/29/2023 15:30 EDT Provider Outr Resulting Lab URINALYSIS O RDERABLES Performing Organization Address [facility] Co de Phone Number [facility] [address] [place] [address] * MAGNESIUM, URINE 24HR (01/28/2023 5:30 EDT) Magnesium, Urine 2.5 See Note mg/dL 01/30/2023 9:56 T [facility] Comment: NOTE: Reference range not established Magnesium, Urine 24 hr 48.8 12.0 - 192.0 mg/24hrs 01/30/2023 9:56 [facility] Urine Volume 1,950 mL 01/30/2023 9:56 [facility] Urine Collection Period 22.0 Hours 01/30/2023 9:56 [facility] Urine 24 HOUR URINE SPECIMEN / Unknown 01/28/2023 5:30 EDT 01/29/2023 15:30 EDT Provider Outr Resulting Lab URINALYSIS O RDERABLES Performing Organization Address [facility]/ZIP Co de Phone Number [facility] [address] [place] [address] * PHOSPHORUS, URINE 24HR (01/28/2023 5:30 EDT) Phosphorous, Urine 37.1 See Note mg/dL 01/30/2023 9:54 T [facility] Comment: NOTE: Reference range not established Phosphorous, Urine 24 hr 0.7 0.4 - 1.3 g/24hrs 01/30/2023 9:54 EDT [facility] Urine Volume 1,950 mL 01/30/2023 9:54 EDT [facility] Urine Collection Period 22.0 Hours 01/30/2023 9:54 T [facility] Urine 24 HOUR URINE SPECIMEN / Unknown 01/28/2023 5:30 EDT 01/29/2023 15:30 EDT Provider Outr Resulting Lab URINALYSIS O RDERABLES Performing Organization Address City/[facility]/ZIP Co de Phone Number [facility] [address] [place] [address] * CALCIUM, URINE 24HR (01/28/2023 5:30 EDT) Calcium, Urine 6.4 See Note mg/dL 01/30/2023 9:54 EDT [facility] Comment: NOTE: Reference range not established Calcium, Urine 24 hr 125 100 - 300 mg/24hr 01/30/2023 9:54 T [facility] Comment:Reference range assu mes a normal daily intake of calcium between 600 - 800 mg/day. Urine Volume 1,950 mL 01/30/2023 9:54 EDT [facility] Urine Collection Period 22.0 Hours 01/30/2023 9:54 EDT [facility] Urine 24 HOUR URINE SPECIMEN / Unknown 01/28/2023 5:30 EDT 01/29/2023 15:30 EDT Provider Outr Resulting Lab URINALYSIS O RDERABLES Performing Organization Address City/[facility]/ZIP Co de Phone Number [facility] [address] [place] [address] documented in this encounter Visit Diagnoses Not on filedocumented in this encounter Care Teams [employer] Director Relationship Specialty Start Date End Date Unknown, Provider, PCP - General 07/22/20 documented as of this encounter
--- OUTSIDE RECORDS SUMMARY | 2024-03-27 21:02 | XMS_ITS | Encounter Summary ---
Author Organization [facility] [place] [address] Care Team Providers Care Dental Director Name Role Phone Estela Aguilar DO Primary Care Provider [phone] Reason for Visit * Consultation (Routine) - Closed Specialty Diagnoses / Procedures Referred By Renzo t Referred To Contact Endocrinology Diagnoses Age-related osteoporosis without current pathological fracture Estela Aguilar DO [address] [place] [address] [facility] Endocrinology [address] [place] [id number] Referral ID Status Reason Start Date Expiration Date V isits Requested Visits Authorized [id number] Closed Consult, Test & Treat Connection Center PCP Updated and/or Approved 01/31/2020 01/30/2021 1 1 Encounter Details Date Type Department Care Team (Latest Contact Info) Description 02/05/2020 9:00 AM EDT TH Visit (TeleHealth) [place] [id number] Walter Washington MD [facility] [place] [address] Vitamin D deficiency; Osteoporosis, unspecified osteoporosis type, unspecified pathological fracture presence Social History Tobacco Use Types Packs/Day Years Used Date Smoking Tobacco: Never Smokeless Tobacco: Never Sex and Gender Information Value Date Recorded Sex Assigned at Not on file Gender Identity Not on file Sexual Orientation Not on file documented as of this encounter Progress Notes * Walter Washington MD - 02/05/2020 9:00 AM EDT TELEPHONE NEW PATIENT VISIT Patient verbally consents to this telehealth visit and understands that this visit may be billed, similar to a clinic office visit Zayra Suarez is a 59 y.o., female about whom I am asked to consult for osteoporosis/low bone mineral density. Referring provider: Estela Aguilar DO History of metabolic bone disease summarized below. HPI: She tells me that she has never broken a bone other than a toe, and was recently diagnosed with osteporosis based on recent DXA scan. She has concerns about starting a medication and would like to discuss this further. Metabolic Bone History: Menstrual History: Menopause: early 50s HRT: [x] no [] yes Year of initial diagnosis of osteoporosis: 2019 Fractures: ?toe in the past Slowed or delayed healing: FHX of osteoporosis: Paternal grandmother has osteoporosis. Father's brother had osteosarcoma FHX of hip fracture: none Falls: Rare, in recent past fell onto knee when slipped on ice Previous bone medications/Duration: n/a Side effects: n/a Ca intake: Takes Ca+D supplement Exercise: Walks dog, enjoys kayaking Risk factors of osteoporosis: Dietary History:: Dairy intake: cheese, reagan regularly, not many leafy greens Social history Cigarette use: no smoking Alcohol use: few glasses of wine per week Occupation: Works at [employer] Last dental visit: 1.5 years ago was last visit, may have a cavity at present and is seeking out local dental care Past Medical History: Diagnosis Date ??? Osteoporosis Past Surgical History: Procedure Laterality Date ??? MAMMO STEREOTACTIC BIOPSY Current Outpatient Medications: ??? Ascorbate Calcium 500 mg Tablet, Daily, Disp: , Rfl: ??? Calcium Carb-Magnesium Carb 250-300 mg Tablet, 2 tablets., Disp: , Rfl: ??? mecobalamin, vitamin B12, 1,000 mcg Tablet, Rapid Dissolve, Daily, Disp: , Rfl: No Known Allergies Review of Systems: No back pain No bone pain +cavity in mouth No recent falls No recent fractures Has lost small amount of height, less than 1 in Was treated with prednisone earlier this year ,briefly for breathing issue that has resolved + hx of kidney stones (2, last in 2017) All other systems negative. LABS: No results for input(s): ALBUMIN in the last 168 hours. Invalid input(s): THYROIDSTIMULATINGHORMONE No results found for: 25OHVITD RADIOLOGY January 19, 2020 DEXA scan ([facility]) Left hip total T score: -1.0 Lumbar spine total T score: -2.8 Assessment / Plan: 59 y.o. female with osteoporosis/low bone mineral density Total bisphosphonate years n/a We discussed the importance of intake of 1200mg elemental Ca daily, at least half from diet rather than pill. Will send her a handout with more details on this. Stressed the importance of regular weight bearing exercise to strengthen bones Will assess for underlying metabolic problems contributing to bone loss: check Ca, Cr, alb, TSH, alk phos, 25 OH Vitamin D, CBC. Given history of kidney stones check spot urine Ca/Cr. If elevated consider 24 hour urine collection Pharmacotherapy: I recommend fosamax for total of 5 years. Discussed rare risks of osteonecrosis or jaw and atypicalfemur fractures. Discussed that I recommend she seek evaluation by a dentist for clearance prior tostarting the medication. She is looking into establishing care with a [facility] dentist and will let meknow once this is done and if she would like to start the medication. RTC in 24 months with repeat DXA It was a pleasure to be involved in the care of Zayra Suarez. If you have any questions about the management and treatment plan as outlined above, or if I can be of further assistance, please do not hesitate to contact me. This note was sent to the referring provider Medical complexity statement (for billing): moderate complexity given new problem requiring additional workup, lab ordering, new diagnosis with uncertain prognosis Walter Washington MD Laboratory Equipment Installert[employer]port rn Endocrinology Section [facility] documented in this encounter Plan of Treatment Not on file documented as of this encounter Visit Diagnoses Diagnosis Vitamin D deficiency Unspecified vitamin D deficiency Osteoporosis, unspecified osteoporosis type, unspecified pathological fracture presence documented in this encounter Care Teams Dental Director Relationship Specialty Start Date End Date Estela Aguilar DO [address] [place] [address] PCP - General Family Medicine 12/22/19 documented as of this encounter
--- OUTSIDE RECORDS SUMMARY | 2024-03-27 21:02 | XMS_ITS | Encounter Summary ---
Author Organization [facility] Address [address] [place] [address] Care Team Providers Care Cabinet Worker Name Role Phone Unknown, Provider Primary Care Provider Encounter Details Date Type Department Care Team (Late st Contact Info) Description 07/28/2021 Lab Requisition [facility] Pathology & Laboratory Medicine - [address] [address] Outr Resulting Lab, Provider Social History Tobacco [...] Comments ZZCOVID-19 TEST [facility] PCR Today 07/28/2021 12:35 EST COVID-19 TESTING Routine 07/28/2021 12:3 5 EST documented in this encounter Results * COVID-19 TEST [facility] PCR (07/28/2021 12:35 EST) Swab 07/28/2021 12:3 5 EST 07/28/2021 17:08 EST Provider Outr Resulting Lab MICROBIOLOGY - GENERAL ORDERABLES [facility] [address] [place] [address] * COVID-19 TESTING (07/28/2021 12:35 EST) COVID-19 rt-PCR Result Negative Negative 07/28/2021 21:36 EST [facility] Comment: This test has [...] history, and epidemiological information. Performed on the [employer] instrument Performing Lab [facility] 07/28/2021 21:36 EST [facility] Swab 07/28/2021 12:3 5 EST 07/28/2021 17:08 EST Provider Outr Resulting Lab MICROBIOLOGY - GENERAL ORDERABLES [facility] [address] [place] [address] documented in this encounter Visit Diagnoses Not on filedocumented in this encounter Care Teams Cabinet Worker Relationship Specialty Start Date End Date Unknown, Provider, PCP - General 07/22/20 documented as of this encounter
--- OUTSIDE RECORDS SUMMARY | 2024-03-27 21:02 | XMS_ITS | Encounter Summary ---
Author Organization [facility] Address [address] [place] [address] Care Team Providers Care Strategic Sourcing Manager Name Role Phone Unknown, Provider Primary Care Provider [phone] Encounter Details Date Type Department Care Team (Late st Contact Info) Description 05/18/2021 Lab Requisition [facility] Pathology & Laboratory Medicine - [facility] [address] [place] [address] Lakshmi Russell [address] [place] [address] [place] [address] Encounter for other general examination [...] Date/Time Associated Diagnosis Comments SURGICAL PATHOLOGY Today 05/18/2021 8: 05 EDT Encounter for other general examination documented in this encounter Results * SURGICAL PATHOLOGY (05/18/2021 8:05 EDT) Note to Patient The following pathology results have been interpreted by your pathologist and may be available to you before your health provider has had the opportunity to review them. Please allow time for your provider to receive these results and explore management options, if applicable. 05/24/2021 16:05 EDT [facility] Final Diagnosis A. ENDOMETRIUM, POLYPECTOMY: - Fragments of endometrial polyp. B. ENDOCERVIX, CURETTAGE: - Extremely scant strips of inactive endometrium and benign endocervical and squamous mucosa. C. ENDOMETRIUM, CURETTAGE: - Extremely scant strips of inactive endometrium and benign endocervical and squamous mucosa. 05/24/2021 16:05 [facility] Attestation There was significant resident/fellow involvement in the diagnostic evaluation of this case. By the signature below, the attending physician certifies that they have personally conducted a gross and/or microscopic examination of the described specimens and rendered or confirmed the above diagnosis. 05/24/2021 16:05 [facility] at 1605 Clinical History Abnormal endometrium 05/24/2021 16:05 [facility] Gross Description A. Received in formalin labelled with proper patient identification (initials N, D) and endometrial polyp is an aggregate of richards-pink tissue fragments measuring 1.5 x 1.0 x 0.3 cm. Submitted entirely in A1. B. Received in formalin labelled with proper patient identification (initials N, D) and endocervical curettings is an aggregate of clear colorless mucus with scant clotted blood measuring 0.6 x 0.4 x 0.2 cm. Submitted entirely in B1. C. Received in formalin labelled with proper patient identification (initials N, D) and endometrial curettings is an aggregate of clear colorless mucus admixed with a small amount of clotted blood and richards-pink tissue fragments measuring 2.0 x 1.0 x 0.2 cm. Submitted entirely in C1. JOSE SAAVEDRA(ASCP) 05/18/2021 18:34 05/24/2021 16:05 [facility] Resident/Hector w: Jean-Claude Price MD 05/24/2021 16:05 [facility] Performing Lab [facility] 05/24/2021 16:05 [facility] Scanned Images 05/24/2021 16:05 [facility] Tissue ENTIRE ENDOMETRIUM / Unknown 05/18/2021 8:05 EDT 05/18/2021 17:36 EDT Tissue specimen (specimen) ENDOCERVICAL STRUCTURE / Unknown 05/18/2021 8:05 EDT 05/18/2021 17:36 EDT Tissue specimen (specimen) ENDOMETRIAL STRUCTURE / Unknown 05/18/2021 8:05 EDT 05/18/2021 17:36 EDT Lakshmi Russell PATHOLOGY ORDERABLES [facility] [address] [place] [address] documented in this encounter Visit Diagnoses Diagnosis Encounter for other general examination documented in this encounter Care Teams Strategic Sourcing Manager Relationship Specialty Start Date End Date Unknown, Provider, PCP - General 07/22/20 documented as of this encounter
--- OUTSIDE RECORDS SUMMARY | 2024-03-27 21:02 | XMS_ITS | Encounter Summary ---
Author Organization [facility] [place] [address] Care Team Providers Care Corn Picker Name Role Phone Estela Aguilar DO Primary Care Provider [phone]- [phone] Encounter Details Date Type Department Care Team (Late st Contact Info) Description 05/31/2023 External [place] [address] Anderson Vital MD [facility] [address] [place] [address] Social History Tobacco Use Types Packs/Day Years [...] Priority Date/Time Associated Diagnosis Comments SURGICAL PATHOLOGY SCAN Routine 05/31/2023 4:07 PM EST documented in this encounter Results * Scan Doc: Surgical Pathology (05/31/2023 4:07 PM EST) Anderson Vital MD MEDIA MGR SCAN EXT ORDR/RSLT documented in this encounter Visit Diagnoses Not on filedocumented in this encounter Care Teams Corn Picker Relationship Specialty Start Date End Date Estela Aguilar DO [address] [place] [address] PCP - General Family Medicine 12/22/19 documented as of this encounter
--- OUTSIDE RECORDS SUMMARY | 2024-03-27 21:02 | XMS_ITS | Encounter Summary ---
Author Organization [facility] Address [address] [place] [address] Care Team Providers Care Crossband Layer Name Role Phone Unknown, Provider Primary Care Provider [phone] Encounter Details Date Type Department Care Team (Late st Contact Info) Description 12/22/2019 Lab Requisition [facility] Pathology & Laboratory Medicine - [facility] [address] [place] [address] Outr Resulting Lab, Provider Social History Tobacco [...] Procedure Name Priority Date/Time Associated Diagnosis Comments DO NOT ORDER STANDALONE - BROAD COVID TEST Today 12/22/2019 11:12 EDT COVID-19 TESTING Routine 12/22/2019 11:1 2 EDT documented in this encounter Results * DO NOT ORDER STANDALONE - BROAD COVID TEST (12/22/2019 11:12 EDT) COVID-19 rt-PCR Result NEGATIVE Negative 12/23/2019 13:30 EDT [facility] Comment: 2019-novel Coronavirus (2019-nCoV) not detected by the qRT-PCR assay. Consider testing for other respiratory viruses or re-collecting for 2019-nCoV testing. Note: Optimum timing for peak viral levels during infections caused by 2019-nCoV have not been determined. Collection of multiple specimens from the same patient may be necessary to detect the virus. Limitations Positive results are indicative of active infection with SARS-CoV-2 but do not rule out bacterial infection or co-infection with other viruses. The agent detected may not be the definite cause of disease. In addition, detection of viral RNA may not indicate the presence of infectious virus or that SARS-CoV-2 is the causative agent for clinical symptoms. Negative results do not preclude SARS-CoV-2 infection and should not be used as the sole basis for patient management decisions. Negative results must be combined with clinical observations, patient history, and epidemiological information. False negative results may also occur if amplification inhibitors are present in the specimen or if inadequate numbers of organisms are present in the specimen. Optimum specimen types and timing for peak viral levels during infections caused by SARS-CoV-2 have not been fully determined. Collection of multiple specimens (types and time points) from the same patient may be necessary to detect the virus. The test was validated for use with upper respiratory specimens obtained via nasopharyngeal or oropharyngeal swabs in VTM, UTM, M4, M5, M6, saline, and MTM media. The performance of this test has not been established for other specimens. Specimens collected using other FDA recommended Specimen Collection Materials listed in the FDA COVID-19 Diagnostic [employer] communication (October 15, 2019) are processed with the caveat that they were not all validated for use with this test and the result must be interpreted in this context. Furthermore, a false negative results may occur if a specimen is improperly collected, transported or handled. If the virus mutates in the RT-PCR target region, SARS-CoV-2 may not be detected or may be detected less predictably. Inhibitors or other types of interference may produce a false negative result. An interference study evaluating the effect of common cold medications was not performed. This test is not FDA-cleared but its performance characteristics were established by our CLIA-certified, CAP-accredited, high complexity laboratory in accordance with CLIA regulations, [employer] (CAP) guidelines (Oct 08, 2019), and FDA guidance (Sep 19, 2019). This test is only for use under the Food and Drug Administration's Emergency Use Authorization. Swab ENTIRE NASOPHARYNX / Unknown 12/22/2019 11:12 EDT 12/22/2019 16:41 EDT Provider Outr Resulting Lab MICROBIOLOGY - GENERAL ORDERABLES [facility] [place], [place] * COVID-19 TESTING (12/22/2019 11:12 EDT) COVID-19 rt-PCR Result NEGATIVE Negative 12/23/2019 14:32 EDT [facility] Comment: 2019-novel Coronavirus (2019-nCoV) not detected by the qRT-PCR assay. Consider testing for other respiratory viruses or re-collecting for 2019-nCoV testing. Note: Optimum timing for peak viral levels during infections caused by 2019-nCoV have not been determined. Collection of multiple specimens from the same patient may be necessary to detect the virus. Limitations Positive results are indicative of active infection with SARS-CoV-2 but do not rule out bacterial infection or co-infection with other viruses. The agent detected may not be the definite cause of disease. In addition, detection of viral RNA may not indicate the presence of infectious virus or that SARS-CoV-2 is the causative agent for clinical symptoms. Negative results do not preclude SARS-CoV-2 infection and should not be used as the sole basis for patient management decisions. Negative results must be combined with clinical observations, patient history, and epidemiological information. False negative results may also occur if amplification inhibitors are present in the specimen or if inadequate numbers of organisms are present in the specimen. Optimum specimen types and timing for peak viral levels during infections caused by SARS-CoV-2 have not been fully determined. Collection of multiple specimens (types and time points) from the same patient may be necessary to detect the virus. The test was validated for use with upper respiratory specimens obtained via nasopharyngeal or oropharyngeal swabs in VTM, UTM, M4, M5, M6, saline, and MTM media. The performance of this test has not been established for other specimens. Specimens collected using other FDA recommended Specimen Collection Materials listed in the FDA COVID-19 [employer] communication (October 15, 2019) are processed with the caveat that they were not all validated for use with this test and the result must be interpreted in this context. Furthermore, a false negative results may occur if a specimen is improperly collected, transported or handled. If the virus mutates in the RT-PCR target region, SARS-CoV-2 may not be detected or may be detected less predictably. Inhibitors or other types of interference may produce a false negative result. An interference study evaluating the effect of common cold medications was not performed. This test is not FDA-cleared but its performance characteristics were established by our CLIA-certified, CAP-accredited, high complexity laboratory in accordance with CLIA regulations, [employer] (CAP) guidelines (Oct 08, 2019), and FDA guidance (Sep 19, 2019). This test is only for use under the Food and Drug Administration's Emergency Use Authorization. Performing Lab [facility] 12/23/2019 14:32 EDT [facility] Swab ENTIRE NASOPHARYNX / Unknown 12/22/2019 11:12 EDT 12/22/2019 16:41 EDT Provider Outr Resulting Lab MICROBIOLOGY - GENERAL ORDERABLES [facility] [address] [place] [address] [facility] [place], [place] documented in this encounter Visit Diagnoses Not on filedocumented in this encounter Care Teams Crossband Layer Relationship Specialty Start Date End Date Unknown, Provider, PCP - General 07/22/20 documented as of this encounter
--- OUTSIDE RECORDS SUMMARY | 2024-03-27 21:02 | XMS_ITS | Referral Summary ---
Author Organization [facility] Address [address] [place] [address] Care Team Providers Care Switchboard Inspector Name Role Phone Unknown, Provider Primary Care Provider [phone] Social History Tobacco Use Types Packs/Day Years Used Date Smoking Tobacco: Never Assessed Interpersonal Safety Answer Date Record ed Physically Hurt Never 06/14/2020 Verbally Threaten Not on file 06/14/2020 Sex and Gender Information Value Date Recorded Sex Assigned at Not on file Gender Identity Not on file Sexual Orientation Not on file Plan of Treatment Not on file Care Teams Switchboard Inspector Relationship Specialty Start Date End Date Unknown, Provider, PCP - General 07/22/20
--- OUTSIDE RECORDS SUMMARY | 2024-03-27 21:02 | XMS_ITS | Encounter Summary ---
Author Organization [facility] Address [address] [place] [address] Care Team Providers Care Potato Chip Maker Name Role Phone Unknown, Provider Primary Care Provider [phone] Encounter Details Date Type Department Care Team (Late st Contact Info) Description 10/28/2021 Lab Requisition [facility] Pathology & Laboratory Medicine - [facility] [address] [place] [address] Outr Resulting Lab, Provider Social History Tobacco [...] Comments ZZCOVID-19 TEST [facility] PCR Today 10/27/2021 12:15 EDT COVID-19 TESTING Routine 10/27/2021 12:1 5 EDT documented in this encounter Results * COVID-19 TEST [facility] PCR (10/27/2021 12:15 EDT) Swab 10/27/2021 12:1 5 EDT 10/28/2021 21:19 EDT Provider Outr Resulting Lab MICROBIOLOGY - GENERAL ORDERABLES [facility] [address] [place] [address] * COVID-19 TESTING (10/27/2021 12:15 EDT) COVID-19 rt-PCR Result Negative Negative 10/29/2021 12:07 EDT [facility] Comment: This test has not [...] clinical observations, patient history, and epidemiological information. Testing was performed using the edenilson SARS-CoV-2 assay ([employer] on the Edenilson 6800 System Performing Lab [facility] [address] [facility] 10/29/2021 12:07 EDT [facility] Swab 10/27/2021 12:1 5 EDT 10/28/2021 21:19 EDT Provider Outr Resulting Lab MICROBIOLOGY - GENERAL ORDERABLES [facility] [address] [place] [address] documented in this encounter Visit Diagnoses Not on filedocumented in this encounter Care Teams Potato Chip Maker Relationship Specialty Start Date End Date Unknown, Provider, PCP - General 07/22/20 documented as of this encounter
--- OUTSIDE RECORDS SUMMARY | 2024-03-27 21:02 | XMS_ITS | Encounter Summary ---
Author Organization [facility] Address [address] [place] [address] Care Team Providers Care Senior Media Buyer Name Role Phone Unknown, Provider Primary Care Provider [phone] Encounter Details Date Type Department Care Team (Late st Contact Info) Description 08/25/2021 Lab Requisition [facility] Pathology & Laboratory Medicine - [address] [address] Outr Resulting Lab, Provider Social History Tobacco [...] Comments ZZCOVID-19 TEST [facility] PCR Today 08/25/2021 8:07 EST COVID-19 TESTING Routine 08/25/2021 8:07 EST documented in this encounter Results * COVID-19 TEST [facility] PCR (08/25/2021 8:07 EST) Swab 08/25/2021 8:07 EST 08/25/2021 22:14 EST Provider Outr Resulting Lab MICROBIOLOGY - GENERAL ORDERABLES [facility] [address] [place] [address] * COVID-19 TESTING (08/25/2021 8:07 EST) COVID-19 rt-PCR Result Negative Negative 08/26/2021 16:47 EST [facility] Comment: This test has not [...] was performed using the edenilson SARS-CoV-2 assay ([employer] on the Edenilson 6800 System Performing Lab [facility] [address] [facility] 08/26/2021 16:47 EST [facility] Swab 08/25/2021 8:07 EST 08/25/2021 22:14 EST Provider Outr Resulting Lab MICROBIOLOGY - GENERAL ORDERABLES Performing Organization Address City/State/[facility] Co de Phone Number [facility] [address] [place] [address] documented in this encounter Visit Diagnoses Not on filedocumented in this encounter Care Teams Senior Media Buyer Relationship Specialty Start Date End Date Unknown, Provider, PCP - General 07/22/20 documented as of this encounter
[2024-03-27 21:03] VITALS: BP 153/94; PULSE 62; RESP 15; TEMP 37.1; O2SAT 97
--- NOTE | 2024-03-27 21:20 | W.ED.GENAD ---
Discharge Plan Disposition Patient Disposition: Home Condition: Stable Discharge Details Clinical Impression: Kidney stone Primary Care Provider: Estela Aguilar ED Provider: Rhea James Home Meds and New Rx's Prescriptions: New ondansetron 4 mg tablet,disintegrating 4 mg PO Q8H PRNQty: 10 0RF oxycodone 5 mg capsule 5 mg PO Q6H PRNQty: 7 0RF tamsulosin [Flomax] 0.4 mg capsule 0.4 mg PO DAILY Qty: 14 0RF Discharge Instructions Instructions: Kidney Stone, Adult ED HPI General Mode of arrival: ambulatory. Date/Time Provider Initiated Documentation: 03/27/24 21:00. Limitations to Documentation: no limitations. Information obtained by: patient, family and old records reviewed. HPI Narrative: MDM: This is a 63-year-old female patient with a past medical history most notable for recurrent kidney stones, presenting for evaluation of left flank pain. My differential includes but is not limited to renal stone, certainly considered infected stone, perinephric abscess, kidney injury, electrolyte derangement. The patient is reassuringly without abdominal pain to significantly increase my concern for other intra-abdominal processes such as diverticulitis, appendicitis, bowel obstruction, mesenteric ischemia. She has no personal history nor risk factors for aortic disease and has had imaging done that did not show any dilation of the aorta. As a shared decision making we discussed repeat imaging and given the known stones, 6 mm, we elected to hold off on repeat CT scanning. Will obtain laboratory studies to include CBC, CMP, urinalysis, and will provide the patient with a liter of IV fluids, Toradol, Dilaudid, and Zofran for symptomatic management of pain and nausea. ED Course: I independently interpreted the laboratory studies, which show no significant leukocytosis, anemia, or thrombocytopenia. The chemistry panel is without evidence of electrolyte abnormality, severe kidney dysfunction (creatinine 1.1), or liver injury. Urinalysis positive for hematuria without infectious findings, and combined with her lack of fever, tachycardia, and normal white blood cell count at a very low concern for infected stone or perinephric abscess. On reassessment the patient has had complete resolution of her nausea and pain, and was able to tolerate p.o. I provided her with prescriptions to include Zofran, oxycodone, and Flomax. She is well tied in with urology and will follow-up for scheduling lithotripsy if she has ongoing symptoms and fails to pass the stone. At this time, the patient has had a full medical evaluation and is safe for discharge to home. They are hemodynamically stable, ambulatory, and tolerating PO. They are understanding of the follow-up plan and return precautions. They left our facility without incident. Rhea James MD HPI: This is a 63-year-old female patient with a past medical history most notable for recurrent renal stones, with a current known 6 mm left-sided kidney stone. She is presenting for evaluation of ongoing left flank pain. The patient reports that she has been managing her symptoms at home with [id number] medications and occasional oxycodone, noted worsening of her pain this morning. The patient has had lithotripsy on several of her other stones, but has not yet scheduled management of this known stone. The patient reports that she has not had a fever or chills, but has had nausea and has not had adequate p.o. intake today. She specifically cites difficulty with hydration. She has not noted dysuria, hematuria, or vaginal symptoms. She is experiencing left flank pain but no abdominal pain. Exam: Gen: Awake and alert, in no apparent distress HEENT: Non-icteric sclera Neck: Supple Lungs: No apparent respiratory distress, normal respiratory effort. CV: Appears well perfused, strong and symmetrical distal pulses Abdomen: Non-distended, soft, nontender MSK: Moves 4 extremities without apparent limitation in ROM. The patient has tenderness of the left flank without significant CVA tenderness, no overlying skin changes appreciated. Skin: Visualized skin without rashes, cyanosis. Neuro: Normal Gait, no obvious focal deficits or facial asymmetry. Speaks in full, clear sentences. Psych: Appropriate for situation. Related Data Home Medications ?Medication ?Instructions ?Recorded ?Confirmed ondansetron 4 mg disintegrating 4 mg PO Q8H PRN #10 tabs 03/27/24 tablet oxycodone 5 mg capsule 5 mg PO Q6H PRN #7 caps 03/27/24 tamsulosin 0.4 mg capsule (Flomax) 0.4 mg PO DAILY #14 caps 03/27/24 Previous Rx's ?Medication ?Instructions ?Recorded ondansetron 4 mg disintegrating 4 mg PO Q8H PRN #10 tabs 03/27/24 tablet oxycodone 5 mg capsule 5 mg PO Q6H PRN #7 caps 03/27/24 tamsulosin 0.4 mg capsule (Flomax) 0.4 mg PO DAILY #14 caps 03/27/24 Allergies Allergy/AdvReac Type Severity Reaction Status Date / Time No Known Allergies Allergy Verified 03/27/24 21:15 General Stated Complaint: Urinary SANDY: 3 Course Vital Signs Vital signs: Vital Signs Temperature 37.1 C 03/27/24 21:00 Pulse 62 03/27/24 21:00 Respiratory Rate 15 03/27/24 21:00 Blood Pressure 153/94 H 03/27/24 21:00 Pulse Oximetry 97 03/27/24 21:00 Temperature 37.1 C 03/27/24 21:03 Pulse 62 03/27/24 21:03 Respiratory Rate 15 03/27/24 21:03 Respiratory Effort Normal 03/27/24 21:03 Blood Pressure 153/94 H 03/27/24 21:03 Blood Pressure Position Sitting 03/27/24 21:03 Pulse Oximetry 97 03/27/24 21:03 Oxygen Delivery Method Room Air 03/27/24 21:03 Oxygen Flow Rate 0 03/27/24 21:03 Pain Level 7 03/27/24 21:03 Medical Decision Making Quality:SDOH Health Related Social Needs: No Data to Display PFSH All Active Problems (Updated 03/27/24 @ 22:17 by Rhea James MD) Kidney stone (Chronic) Basal cell carcinoma, face (Acute) Internal derangement of right knee (Acute) Injection: 01/24/2023 Acute bronchitis (Acute) Chest congestion (Acute) Osteoporosis (Chronic) Based on ankle tamar, hip U/S. Fam Hx (Grand mo kyphosis). Improved diet, no bisphosph. [ ] DEXA Family history of breast cancer (Acute) Family history of ovarian cancer (Acute) Family hx of colon cancer (Acute) [place] (2002)(42yo) [ ] Rpt Tinnitus (Acute) Hx of viral illness (Acute) Possible COVID19 .. late Jul travel, followed by terrible flu-like illness with significant chest discomfort/SOB. Encounter for screening for other viral diseases (Acute) Family history of cardiovascular disease (Acute) Tingling in extremities (Acute) Sensorineural hearing loss of both ears (Acute) Abnormal auditory perception (Acute) Asymmetric tonsils (Acute) Well woman exam with routine gynecological exam (Acute) Cervical polyp (Acute) Dog bite (Acute) Cellulitis (Acute) Laceration (Acute) Infected dog bite of hand including fingers (Acute) Ovarian cyst, right (Acute) Pelvic pain (Acute) Abnormal ultrasound (Acute) Status post dilation and curettage (Acute) LLQ pain (Acute) Medical History (Updated 03/27/24 @ 22:17 by Rhea James MD) No significant past medical history Surgical History (Updated 08/09/23 @ 08:39 by Janice Story RN) S/P Mohs surgery for basal cell carcinoma (07/30/23) Left sideburn. Performed at [facility] Hx of colonoscopy History of right breast biopsy (~2009) Calcifications History of breast surgery Family History Mother Breast cancer Father Colon cancer Heart disease Depression Sister Skin cancer Cancer Ovarian cancer Paternal Grandmother Breast cancer Maternal Grandmother Breast cancer Social History Smoking/Tobacco Use Status: Never Smoking risk assessment performed?: Yes Alcohol Intake: current Alcohol Intake frequency: holidays/special occasions only Alcohol type: beer and wine Drug use: Never Substance use type: does not use Adopted: No Caregiver/Support person: No Foster care: No Household members: spouse Housing: house Number of Children: 3 Communication Needs: None Do you need help understanding health information?: Never 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, [employer] Sexually active: Yes Do you think of yourself as: straight/heterosexual Current gender identity: female What type of physical activity do you participate in: walking Duration: 15-30 minutes/day Frequency: daily Seatbelt use: always Helmet use: Yes Drive intox or ride w/intox special client bus driver: No Working smoke detector in home: Yes Fire extinguisher in home: Yes Carbon monox detector in home: Yes Firearms in home: No Do you feel safe at home: Yes Do you feel safe in your relationship?: Yes PAWSS Have you Been Recently Intoxicated or Drunk Within the Last 30 days?: No Have you Ever Experienced Previous Episodes of Alcohol Withdrawal?: No Have you ever Experienced Withdrawal Seizures?: No Have you ever Experienced Delirium Tremens(DT)s?: No Have you ever undergone Alcohol Rehabilitation Treatment (i.e, inpt ot outpatient treatment programs)?: No Have you ever Experienced Blackouts?: No Have you ever Combined Alcohol with other Downers within the last 90 days?: No Have you ever Combined Alcohol with any other Substance of Abuse during the last 90 days?: No Positive Blood Alcohol level on Presentation? [PCS.BAL]: No Evidence of Increased Autonomic Activity (i.e. HR>120, tremor, sweating, agitation, nausea)?: No Result: 0
[2024-03-27] MEDS: Ondansetron 4 MG/2 ML VIAL IVP (21:30)
[2024-03-27] MEDS: Lactated Ringers 1,000 ML 1000 ML IV (21:30)
[2024-03-27] MEDS: HYDROmorphone 2 MG/ML SYR 0.5 MG IVP (21:30)
[2024-03-27] MEDS: Ketorolac 15 MG/ML VIAL IVP (21:30)
[2024-03-27 21:38] LABS: Abs Immature Grans 0.04 10^3/uL (0.0-0.06); Absolute Basophil Count 0.02 10^3/uL (0.0-0.2); Absolute Eosinophil Count 0.02 10^3/uL (0.0-0.7); Absolute Lymphocyte Count 0.91 10^3/uL (1.2-3.4); Absolute Monocyte Count 0.36 10^3/uL (0.1-0.8); Basophils % 0.2 %; Eosinophils % 0.2 %; HCT 41.9 % (36.0-46.0); Immature Grans % 0.4 %; Lymphocytes % 8.5 %; MCH 28.7 pg (27.0-33.0); MCHC 33.4 % (32.0-36.0); MCV 86 fL (80-95); MPV 9.2 fL (8.0-11.0); Monocytes % 3.4 %; Neutrophils % 87.3 %; Platelet Count 278 10^3/uL (130-400); RBC 4.87 10^6/uL (3.93-5.22); RDW 11.9 % (11.7-14.6); RDW-SD 37.7 fL; WBC 10.65 10^3/uL (4.4-10.8)
[2024-03-27 21:40] LABS: Bilirubin Negative (Negative); Blood Large (Negative); Clarity Sl Cloudy (Clear); Glucose Negative (Negative); Ketones 40 mg/dL (Negative); Leukocyte Esterase Negative (Negative); Nitrite Negative (Negative); Specific Gravity >= 1.030 (1.005-1.025); Urobilinogen 0.2 mg/dL (Up to 0.2)
[2024-03-27 21:47] LABS: Bacteria Negative HPF (Negative); Casts Negative LPF (Negative); Crystals Negative HPF (Negative); Epithelial Cells Rare HPF (Negative); Mucus Trace (Negative)
[2024-03-27 21:48] LABS: C & S Indicated? No
[2024-03-27 21:58] LABS: ALT 19 U/L (14-59); AST 21 U/L (15-37); Albumin 3.8 g/dL (3.4-5.0); Alkaline Phosphatase 128 U/L (46-116); Anion Gap 6.9 mmol/L (3-11); BUN 15 mg/dL (7-18); Bilirubin, Total 0.53 mg/dL (0.2-1.0); CO2 27.1 mmol/L (21.0-32.0); CREATININE 1.1 mg/dL (0.55-1.02); Calcium 9.5 mg/dL (8.5-10.1); Chloride 99 mmol/L (98-107); Estimated GFR 56.46 (mL/min/1.73m2); Glucose 147 mg/dL (74-106); Sodium 133 mmol/L (136-145); Total Protein 7.9 g/dL (6.4-8.2)
[2024-03-27] MEDS: Ondansetron O.D.T. 4 MG TABEF, 3 TABS/BTL PO (23:07)
[2024-03-27 23:10] VITALS: BP 151/81; PULSE 77; TEMP 36.1; O2SAT 98
== END 2024-03-27 23:25 | disposition home or self-care (01) ==
PROVIDERS: Emergency Provider Emergency Medicine; PCP Student in an Organized Health Care Education/Training Program
DX: R20.0 Anesthesia of skin (principal)
CPT/HCPCS: 80053; 96361; 96374; 96375; 99284; 81003; 81015; 85025; 99283; J1170; J1885; J2405

== ENCOUNTER 2024-03-28 10:35 | Outpatient (REF) | payer OTHER, SELFPAY ==
--- OUTSIDE RECORDS SUMMARY | 2024-04-22 10:36 | XMS_ITS | Encounter Summary ---
Author Organization [facility] Address [address] [place] [address] Care Team Providers Care Rn Lactation Name Role Phone Unknown, Provider Primary Care Provider Encounter Details Date Type Department Care Team (Late st Contact Info) Description 10/16/2020 Lab Requisition [facility] Pathology & Laboratory Medicine - [facility] [address] [place] [address] Outr Resulting Lab, Provider Social History Tobacco [...] Outr Resulting Lab MICROBIOLOGY - GENERAL ORDERABLES [facility] [address] [place] [address] * COVID-19 TESTING (10/16/2020 9:20 EDT) COVID-19 rt-PCR Result Negative Negative 10/16/2020 22:18 EDT [facility] Comment: This test has [...] history, and epidemiological information. Performed on the [employer] Fusion instrument Performing Lab [facility] 10/16/2020 22:18 EDT [facility] Swab 10/16/2020 9:20 EDT 10/16/2020 19:39 EDT Provider Outr Resulting Lab MICROBIOLOGY - GENERAL ORDERABLES Performing Organization Address City/State/[facility] Co de Phone Number [facility] [address] [place] [address] documented in this encounter Visit Diagnoses Not on filedocumented in this encounter Care Teams Rn Lactation Relationship Specialty Start Date End Date Unknown, Provider, PCP - General 07/22/20 documented as of this encounter
--- OUTSIDE RECORDS SUMMARY | 2024-04-22 10:36 | XMS_ITS | Referral Summary ---
Author Organization [facility] Address [address] [place] [address] Care Team Providers Care Dials Supervisor Name Role Phone Unknown, Provider Primary Care [...] of Treatment Not on file Care Teams Dials Supervisor Relationship Specialty Start Date End Date Unknown, Provider, PCP - General 07/22/20
--- OUTSIDE RECORDS SUMMARY | 2024-04-22 10:36 | XMS_ITS | Encounter Summary ---
Author Organization [facility] Address [address] [place] [address] Care Team Providers Care Head Cashier Name Role Phone Unknown, Provider Primary Care Provider [phone] Encounter Details Date Type Department Care Team (Late st Contact Info) Description 05/22/2023 Lab Requisition [facility] Pathology & Laboratory Medicine - [address] [address] Maicol Bazan MD [address] [place] [address] [phone] Disorder of the skin and subcutaneous tissue, [...] management options, if applicable. 05/23/2023 11:22 EDT [facility] Final Diagnosis A. SKIN OF SIDEBURN, LEFT, EXCISION: - Basal cell carcinoma, superficial and nodular type. See comment. - Peripheral margin POSITIVE for basal cell carcinoma. - Epidermal reparative change and dermal scar, consistent with biopsy site. 05/23/2023 11:22 [facility] Diagnosis Comment The excision has residual basal cell carcinoma with superficial and nodular growth patterns. In some of the central sections, as well as one of the tips of the excision, basal cell carcinoma is transected at the inked peripheral margin to the level of the mid reticular dermis. 05/23/2023 11:22 [facility] Attestation By the signature below, the attending physician certifies that they have 1) personally conducted a gross and/or microscopic examination of the described specimen(s), and/or personally interpreted the results of laboratory testing of the described specimen(s), and 2) personally rendered or confirmed the above diagnosis. 05/23/2023 11:22 [facility] at 1122 Microscopic Description [...] of the islands and stroma. 05/23/2023 11:22 [facility] Clinical History BCCA; clinical diagnosis code: L98.9, C44.310 05/23/2023 11:22 [facility] Gross Description A. Received [...] sections JOSE IBRAHIM(ASCP) 05/22/2023 10:20 05/23/2023 11:22 [facility] Performing Lab [facility] 05/23/2023 11:22 EDT [facility] Scanned Images 05/23/2023 11:22 EDT [facility] Tissue SPECIMEN FROM SKIN / Unknown 05/21/2023 7:45 EDT 05/22/2023 8:55 EDT Maicol Bazan MD PATHOLOGY ORDERABLES [facility] [address] [place] [address] documented in this encounter Visit Diagnoses Diagnosis Disorder of the skin and subcutaneous tissue, unspecified documented in this encounter Care Teams Head Cashier Relationship Specialty Start Date End Date Unknown, Provider, PCP - General 07/22/20 documented as of this encounter
--- OUTSIDE RECORDS SUMMARY | 2024-04-22 10:36 | XMS_ITS | Encounter Summary ---
Author Organization [facility] Address [address] [place] [address] Care Team Providers Care Practice Lead Name Role Phone Unknown, Provider Primary Care Provider [phone] Encounter Details Date Type Department Care Team (Late st Contact Info) Description 01/28/2023 Lab Requisition [facility] Pathology & Laboratory Medicine - [facility] [address] [place] [address] Outr Resulting Lab, Provider Social History Tobacco [...] 17.8 See Note mg/dL 01/30/2023 9:56 EDT [facility] Comment: NOTE: Reference range not established Uric Acid, Urine 24 hr 347 250 - 750 mg/24hrs 01/30/2023 9:56 T [facility] Urine Volume 1,950 mL 01/30/2023 9:56 [facility] Urine Collection Period 22.0 Hours 01/30/2023 9:56 [facility] Urine 24 HOUR URINE SPECIMEN / Unknown 01/28/2023 5:30 EDT 01/29/2023 15:30 EDT Provider Outr Resulting Lab URINALYSIS O RDERABLES Performing Organization Address [facility] Co de Phone Number [facility] [address] [place] [address] * MAGNESIUM, URINE 24HR (01/28/2023 5:30 EDT) Magnesium, Urine 2.5 See Note mg/dL 01/30/2023 9:56 T [facility] Comment: NOTE: Reference range not established Magnesium, Urine 24 hr 48.8 12.0 - 192.0 mg/24hrs 01/30/2023 9:56 [facility] Urine Volume 1,950 mL 01/30/2023 9:56 [facility] Urine Collection Period 22.0 Hours 01/30/2023 9:56 [facility] Urine 24 HOUR URINE SPECIMEN / Unknown 01/28/2023 5:30 EDT 01/29/2023 15:30 EDT Provider Outr Resulting Lab URINALYSIS O RDERABLES Performing Organization Address [facility]/ZIP Co de Phone Number [facility] [address] [place] [address] * PHOSPHORUS, URINE 24HR (01/28/2023 5:30 EDT) Phosphorous, Urine 37.1 See Note mg/dL 01/30/2023 9:54 T [facility] Comment: NOTE: Reference range not established Phosphorous, Urine 24 hr 0.7 0.4 - 1.3 g/24hrs 01/30/2023 9:54 EDT [facility] Urine Volume 1,950 mL 01/30/2023 9:54 EDT [facility] Urine Collection Period 22.0 Hours 01/30/2023 9:54 T [facility] Urine 24 HOUR URINE SPECIMEN / Unknown 01/28/2023 5:30 EDT 01/29/2023 15:30 EDT Provider Outr Resulting Lab URINALYSIS O RDERABLES Performing Organization Address City/[facility]/ZIP Co de Phone Number [facility] [address] [place] [address] * CALCIUM, URINE 24HR (01/28/2023 5:30 EDT) Calcium, Urine 6.4 See Note mg/dL 01/30/2023 9:54 EDT [facility] Comment: NOTE: Reference range not established Calcium, Urine 24 hr 125 100 - 300 mg/24hr 01/30/2023 9:54 T [facility] Comment:Reference range assu mes a normal daily intake of calcium between 600 - 800 mg/day. Urine Volume 1,950 mL 01/30/2023 9:54 EDT [facility] Urine Collection Period 22.0 Hours 01/30/2023 9:54 EDT [facility] Urine 24 HOUR URINE SPECIMEN / Unknown 01/28/2023 5:30 EDT 01/29/2023 15:30 EDT Provider Outr Resulting Lab URINALYSIS O RDERABLES Performing Organization Address City/[facility]/ZIP Co de Phone Number [facility] [address] [place] [address] documented in this encounter Visit Diagnoses Not on filedocumented in this encounter Care Teams Practice Lead Relationship Specialty Start Date End Date Unknown, Provider, PCP - General 07/22/20 documented as of this encounter
--- OUTSIDE RECORDS SUMMARY | 2024-04-22 10:36 | XMS_ITS | Encounter Summary ---
Author Organization [facility] Address [address] [place] [address] Care Team Providers Care Data Librarian Name Role Phone Unknown, Provider Primary Care Provider Encounter Details Date Type Department Care Team (Late st Contact Info) Description 07/23/2021 Lab Requisition [facility] Pathology & Laboratory Medicine - [address] [address] Outr Resulting Lab, Provider Social History Tobacco [...] Outr Resulting Lab MICROBIOLOGY - GENERAL ORDERABLES [facility] [address] [place] [address] * COVID-19 TESTING (07/22/2021 13:30 EST) COVID-19 rt-PCR Result Negative Negative 07/24/2021 2:10 EST [facility] Comment: This test [...] history, and epidemiological information. Performed on the [employer] Fusion instrument Performing Lab [place] [facility] 07/24/2021 2:10 EST [facility] Swab 07/22/2021 13:3 0 EST 07/23/2021 18:12 EST Provider Outr Resulting Lab MICROBIOLOGY - GENERAL ORDERABLES [facility] [address] [place] [address] documented in this encounter Visit Diagnoses Not on filedocumented in this encounter Care Teams Data Librarian Relationship Specialty Start Date End Date Unknown, Provider, PCP - General 07/22/20 documented as of this encounter
--- OUTSIDE RECORDS SUMMARY | 2024-04-22 10:36 | XMS_ITS | Encounter Summary ---
Author Organization [facility] Address [address] [place] [address] Care Team Providers Care Lime Burner Name Role Phone Unknown, Provider Primary Care Provider Encounter Details Date Type Department Care Team (Late st Contact Info) Description 07/28/2021 Lab Requisition [facility] Pathology & Laboratory Medicine - [address] [address] Outr Resulting Lab, Provider Social History Tobacco [...] Resulting Lab MICROBIOLOGY - GENERAL ORDERABLES [facility] [address] [place] [address] * COVID-19 TESTING (07/28/2021 12:35 EST) COVID-19 rt-PCR Result Negative Negative 07/28/2021 21:36 EST [facility] Comment: This test [...] history, and epidemiological information. Performed on the [employer] Fusion instrument Performing Lab [place] [facility] Lab 07/28/2021 21:36 EST [facility] Swab 07/28/2021 12:3 5 EST 07/28/2021 17:08 EST Provider Outr Resulting Lab MICROBIOLOGY - GENERAL ORDERABLES [facility] [address] [place] [address] documented in this encounter Visit Diagnoses Not on filedocumented in this encounter Care Teams Lime Burner Relationship Specialty Start Date End Date Unknown, Provider, PCP - General 07/22/20 documented as of this encounter
--- OUTSIDE RECORDS SUMMARY | 2024-04-22 10:36 | XMS_ITS | Encounter Summary ---
Author Organization [facility] Address [address] [place] [address] Care Team Providers Care Fence Erector Supervisor Name Role Phone Unknown, Provider Primary Care Provider Encounter Details Date Type Department Care Team (Late st Contact Info) Description 10/14/2020 Lab Requisition [facility] Pathology & Laboratory Medicine - [facility] [address] [place] [address] Lakshmi Russell [address] [place] [address] [place] [address] Encounter for other general examination [...] - Benign endocervical cells. 10/18/2020 12:07 EDT [facility] Diagnosis Comment Couples Therapist slides of this case were reviewed at the intradepartmental consultation conference. 10/18/2020 12:07 [facility] Attestation By the signature below, the attending physician certifies that they have 1) personally conducted a gross and/or microscopic examination of the described specimen(s), and/or personally interpreted the results of laboratory testing of the described specimen(s), and 2) personally rendered or confirmed the above diagnosis. 10/18/2020 12:07 [facility] at 1207 Clinical History Thick endocervix; postmenopausal bleeding 10/18/2020 12:07 [facility] Gross Description A. Received in [...] JOSE TOURE(ASCP) 10/14/2020 16:35 10/18/2020 12:07 T [facility] Performing Lab [facility] 10/18/2020 12:07 [facility] Scanned Images 10/18/2020 12:07 [facility] Tissue ENTIRE ENDOMETRIUM / Unknown 10/13/2020 15:10 EDT 10/14/2020 16:01 EDT Tissue specimen (specimen) ENDOMETRIAL STRUCTURE / Unknown 10/13/2020 15:10 EDT 10/14/2020 16:01 EDT Lakshmi Russell PATHOLOGY ORDERABLES [facility] [address] [place] [address] documented in this encounter Visit Diagnoses Diagnosis Encounter for other general examination documented in this encounter Care Teams Fence Erector Supervisor Relationship Specialty Start Date End Date Unknown, Provider, PCP - General 07/22/20 documented as of this encounter
--- OUTSIDE RECORDS SUMMARY | 2024-04-22 10:36 | XMS_ITS | Encounter Summary ---
Author Organization [facility] Address [address] [place] [address] Care Team Providers Care Statement Clerks Manager Name Role Phone Unknown, Provider Primary Care Provider Encounter Details Date Type Department Care Team (Late st Contact Info) Description 10/28/2021 Lab Requisition [facility] Pathology & Laboratory Medicine - [facility] [address] [place] [address] Outr Resulting Lab, Provider Social History Tobacco [...] Outr Resulting Lab MICROBIOLOGY - GENERAL ORDERABLES [facility] [address] [place] [address] * COVID-19 TESTING (10/27/2021 12:15 EDT) COVID-19 rt-PCR Result Negative Negative 10/29/2021 12:07 EDT [facility] Comment: This test [...] was performed using the edenilson SARS-CoV-2 assay ([employer] on the Edenilson 6800 System Performing Lab [facility]son [address] [facility] Lab 10/29/2021 12:07 EDT [facility] Swab 10/27/2021 12:1 5 EDT 10/28/2021 21:19 EDT Provider Outr Resulting Lab MICROBIOLOGY - GENERAL ORDERABLES [facility] [address] [place] [address] documented in this encounter Visit Diagnoses Not on filedocumented in this encounter Care Teams Statement Clerks Manager Relationship Specialty Start Date End Date Unknown, Provider, PCP - General 07/22/20 documented as of this encounter
--- OUTSIDE RECORDS SUMMARY | 2024-04-22 10:36 | XMS_ITS | Encounter Summary ---
Author Organization [facility] Address [address] [place] [address] Care Team Providers Care Special Agent Secret Service Name Role Phone Unknown, Provider Primary Care Provider Encounter Details Date Type Department Care Team (Late st Contact Info) Description 11/05/2021 Lab Requisition [facility] Pathology & Laboratory Medicine - [facility] [address] [place] [address] Outr Resulting Lab, Provider Social History Tobacco [...] Outr Resulting Lab MICROBIOLOGY - GENERAL ORDERABLES [facility] [address] [place] [address] * COVID-19 TESTING (11/04/2021 14:00 EDT) COVID-19 rt-PCR Result Negative Negative 11/05/2021 19:03 EDT [facility] Comment: This test [...] history, and epidemiological information. Performed on the [employer] Fusion instrument Performing Lab [place] [facility] 11/05/2021 19:03 EDT [facility] Swab 11/04/2021 14:0 0 EDT 11/05/2021 15:06 EDT Provider Outr Resulting Lab MICROBIOLOGY - GENERAL ORDERABLES [facility] [address] [place] [address] documented in this encounter Visit Diagnoses Not on filedocumented in this encounter Care Teams Special Agent Secret Service Relationship Specialty Start Date End Date Unknown, Provider, PCP - General 07/22/20 documented as of this encounter
--- OUTSIDE RECORDS SUMMARY | 2024-04-22 10:36 | XMS_ITS | Encounter Summary ---
Author Organization [facility] Address [address] [place] [address] Care Team Providers Care Foster Care Therapist Name Role Phone Unknown, Provider Primary Care Provider Encounter Details Date Type Department Care Team (Late st Contact Info) Description 08/25/2021 Lab Requisition [facility] Pathology & Laboratory Medicine - [address] [address] Outr Resulting Lab, Provider Social History Tobacco [...] Outr Resulting Lab MICROBIOLOGY - GENERAL ORDERABLES [facility] [address] [place] [address] * COVID-19 TESTING (08/25/2021 8:07 EST) COVID-19 rt-PCR Result Negative Negative 08/26/2021 16:47 EST [facility] Comment: This test [...] was performed using the edenilson SARS-CoV-2 assay ([employer] on the Edenilson 6800 System Performing Lab [place] [address] [facility] 08/26/2021 16:47 EST [facility] Swab 08/25/2021 8:07 EST 08/25/2021 22:14 EST Provider Outr Resulting Lab MICROBIOLOGY - GENERAL ORDERABLES Performing Organization Address City/State/[facility] Co de Phone Number [facility] [address] [place] [address] documented in this encounter Visit Diagnoses Not on filedocumented in this encounter Care Teams Foster Care Therapist Relationship Specialty Start Date End Date Unknown, Provider, PCP - General 07/22/20 documented as of this encounter
--- OUTSIDE RECORDS SUMMARY | 2024-04-22 10:36 | XMS_ITS | Clinical Summary ---
Author Organization [facility] Address [address] [place] [address] Care Team Providers Care Project Executive Name Role Phone Unknown, Provider Primary Care [...] COVID-19 Vaccine (2022-24 season) 2023 Care Teams Project Executive Relationship Specialty Start Date End Date Unknown, Provider, PCP - General 07/22/20
--- OUTSIDE RECORDS SUMMARY | 2024-04-22 10:36 | XMS_ITS | Encounter Summary ---
Author Organization [facility] Address [address] [place] [address] Care Team Providers Care Director Of Enterprise Applications Name Role Phone Unknown, Provider Primary Care Provider Encounter Details Date Type Department Care Team (Late st Contact Info) Description 05/18/2021 Lab Requisition [facility] Pathology & Laboratory Medicine - [facility] [address] [place] [address] Lakshmi Russell [address] [place] [address] [place] [address] Encounter for other general examination [...] management options, if applicable. 05/24/2021 16:05 EDT [facility] Final Diagnosis A. ENDOMETRIUM, POLYPECTOMY: - Fragments of endometrial polyp. B. ENDOCERVIX, CURETTAGE: - Extremely scant strips of inactive endometrium and benign endocervical and squamous mucosa. C. ENDOMETRIUM, CURETTAGE: - Extremely scant strips of inactive endometrium and benign endocervical and squamous mucosa. 05/24/2021 16:05 [facility] Attestation There was significant resident/fellow involvement in the diagnostic evaluation of this case. By the signature below, the attending physician certifies that they have personally conducted a gross and/or microscopic examination of the described specimens and rendered or confirmed the above diagnosis. 05/24/2021 16:05 [facility] at 1605 Clinical History Abnormal endometrium 05/24/2021 16:05 [facility] Gross Description A. Received in [...] C1. JOSE SAAVEDRA(ASCP) 05/18/2021 18:34 05/24/2021 16:05 [facility] Resident/Hector w: Jean-Claude Price MD 05/24/2021 16:05 [facility] Performing Lab [facility] 05/24/2021 16:05 [facility] Scanned Images 05/24/2021 16:05 [facility] Tissue ENTIRE ENDOMETRIUM / Unknown 05/18/2021 8:05 EDT 05/18/2021 17:36 EDT Tissue specimen (specimen) ENDOCERVICAL STRUCTURE / Unknown 05/18/2021 8:05 EDT 05/18/2021 17:36 EDT Tissue specimen (specimen) ENDOMETRIAL STRUCTURE / Unknown 05/18/2021 8:05 EDT 05/18/2021 17:36 EDT Lakshmi Russell PATHOLOGY ORDERABLES [facility] [address] [place] [address] documented in this encounter Visit Diagnoses Diagnosis Encounter for other general examination documented in this encounter Care Teams Director Of Enterprise Applications Relationship Specialty Start Date End Date Unknown, Provider, PCP - General 07/22/20 documented as of this encounter
--- OUTSIDE RECORDS SUMMARY | 2024-04-22 10:36 | XMS_ITS | Encounter Summary ---
Author Organization [facility] Address [address] [place] [address] Care Team Providers Care Handmade Tile Artist Name Role Phone Unknown, Provider Primary Care Provider Encounter Details Date Type Department Care Team (Late st Contact Info) Description 04/11/2023 Lab Requisition [facility] Pathology & Laboratory Medicine - [facility] [address] [place] [address] Maicol Bazan MD [address] [place] [phone] Neoplasm of uncertain behavior of skin Social [...] management options, if applicable. 04/12/2023 10:32 EDT [facility] Final Diagnosis A. SKIN OF CHEEK, LEFT, SHAVE BIOPSY: - Basal cell carcinoma, superficial and nodular types. - Lesions present at the biopsy base. 04/12/2023 10:32 [facility] Attestation There was significant resident/fellow involvement in the diagnostic evaluation of this case. By the signature below, the attending physician certifies that they have personally conducted a gross and/or microscopic examination of the described specimens and rendered or confirmed the above diagnosis. 04/12/2023 10:32 [facility] at 1032 Clinical History L cheek lesion, hx sun exposure; clinical diagnosis code: L98.9 04/12/2023 10:32 [facility] Gross Description A. Received in formalin labelled with proper patient identification (initials N, D) and left cheek are 2 irregular shave of richards-sharma skin (each averaging 0.3 x 0.2 x 0.1 cm). The margins are inked. The specimen is entirely submitted in A1. JOSE IBRAHIM(ASCP) 04/11/2023 9:19 04/12/2023 10:32 [facility] Resident/Hector w: Thuy Oakes MD 04/12/2023 10:32 [facility] Performing Lab [facility] 04/12/2023 10:32 [facility] Scanned Images 04/12/2023 10:32 [facility] Tissue SPECIMEN FROM SKIN / Unknown 04/09/2023 14:50 EDT 04/11/2023 7:57 EDT Maicol Bazan MD PATHOLOGY ORDERABLES [facility] [address] [place] [address] documented in this encounter Visit Diagnoses Diagnosis Neoplasm of uncertain behavior of skin documented in this encounter Care Teams Handmade Tile Artist Relationship Specialty Start Date End Date Unknown, Provider, PCP - General 07/22/20 documented as of this encounter
--- OUTSIDE RECORDS SUMMARY | 2024-04-22 10:37 | XMS_ITS | Continuity of Care Document ---
Author Organization [facility] Address [address] [place] [address] Care Team Providers Care Pomologist Name Role Phone Estela Aguilar Primary Care Physician Encounter [facility] [id number] Date(s): 03/24/24 - 03/24/[address] [address] Encounter Diagnosis Renal calculi(Discharge Diagnosis) - 03/24/24 Discharge Disposition: Home or Self Care Allergies, Adverse Reactions, Alerts No Known Allergies Problem List Condition Confirmation Course Effective Dates Status H ealth Status Informant Abnormal auditory perception Confirmed Active Basal cell carcinoma (BCC) of face Confirmed Active Internal derangement of right knee Confirmed Active Infected dog bite of hand including fingers Confirmed Active Family history of colon cancer Confirmed Active Family history of ovarian cancer Confirmed Active Family history of cardiovascular disease Confirmed Active Hx of viral illness 1 Confirmed Active Hx of colonoscopy Confirmed Active History of breast surgery Confirmed Active Bilateral nephrolithiasis Confirmed Active LLQ pain Confirmed Active Obesity Confirmed Active Osteoporosis Confirmed Active Tingling in extremities Confirmed Active Cervical polyp Confirmed Active Sensorineural hearing loss (SNHL) of both ears Confirmed Active Asymmetric tonsils Confirmed Active 1possible Covid 19... late Jul tra=kwame, followed by terrible flu-like illness with significant chestdiscomfort/SOB Procedures Procedure Date Related Diagnosis Body Site Status Breast procedure 1 Comple rosemarie Colonoscopy Completed Extraction of wisdom tooth Completed Hysteroscopy with cervical cyst removal 2 Completed 1Calcification removed. 2cervical cyst removal Social History Social History Type Response Smoking Status Smoking tobacco use: Never tobacco user;Never entered on: 02/19/24 Sex Female Patient Care team information Care Team Personnel Name: Estela Aguilar Position: No Access Member Role: Primary Care Physician Address: Address: [address] [place] [id number] Care Team Related Persons Name: MIC MEDEL Address: Home [address] [place] [address], [id number]
--- OUTSIDE RECORDS SUMMARY | 2024-04-22 10:37 | XMS_ITS | Encounter Summary ---
Author Organization [facility] Address [facility] [place] [address] Care Team Providers Care Risk Management Internship Name Role Phone QueenieEstela mejia Danny MAGAÑA Primary Care Provider +1- [phone] Reason for Visit * Reason Comments Basal Cell Carcinoma Encounter Details Date Type Department Care Team (Latest Contact Info) Description 07/30/2023 7:45 AM EST Clinical Support Dermatology at [facility] [address] [place] [address] [facility] [address] ALY[place] [address] Basal cell carcinoma (BCC) of sideburn area [...] area documented in this encounter Care Teams Risk Management Internship Relationship Specialty Start Date End Date Estela Aguilar DO [address] [place] [address] PCP - General Family Medicine 12/22/19 documented as of this encounter
--- OUTSIDE RECORDS SUMMARY | 2024-04-22 10:37 | XMS_ITS | Encounter Summary ---
Author Organization [facility] [place] [address] Care Team Providers Care Cyber Crime Investigator Name Role Phone Lauren Estelajoe Delgado DO Primary Care Provider +1- [phone] Encounter Details Date Type Department Care Team (Late st Contact Info) Description 02/25/2020 Telephone [place] [phone] Contreras Johansen RN Social History Tobacco Use [...] to us with a call or a GitHub message with her decision about the Fosamax. [...] on filedocumented in this encounter Care Teams Cyber Crime Investigator Relationship Specialty Start Date End Date Estela Aguilar DO [address] [facility] [place] [address] PCP - General Family Medicine 12/22/19 documented as of this encounter
--- OUTSIDE RECORDS SUMMARY | 2024-04-22 10:37 | XMS_ITS | Encounter Summary ---
Author Organization [facility] [place] [address] Care Team Providers Care Process Analyst Name Role Phone Estela Aguilar DO Primary Care Provider +1- [phone] Reason for Visit * Consultation (Routine) - Closed Specialty Diagnoses / Procedures Referred By Renzo t Referred To Contact Endocrinology Diagnoses Age-related osteoporosis without current pathological fracture Estela Aguilar DO [address] [place] [address] [facility] [place] [facility] [address] [place] [phone] Referral ID Status Reason Start Date Expiration Date V isits Requested Visits Authorized [id number] Closed Consult, Test & Treat Connection Center PCP Updated and/or Approved 01/31/2020 01/30/2021 1 1 Encounter Details Date Type Department Care Team (Latest Contact Info) Description 02/05/2020 9:00 AM EDT TH Visit (TeleHealth) [place] [phone] Walter Washington MD [facility] [place] [address] Vitamin D deficiency; Osteoporosis, unspecified osteoporosis type, [...] of wine per week Occupation: Works at [employer] Last dental visit: 1.5 years ago was [...] is looking into establishing care with a [facility] dentist and will let meknow once [...] diagnosis with uncertain prognosis Walter Washington MD Media Sales Executiveelectronics instructor Endocrinology Section [facility] documented in this encounter Plan of Treatment Not on file documented as of this encounter Visit Diagnoses Diagnosis Vitamin D deficiency Unspecified vitamin D deficiency Osteoporosis, unspecified osteoporosis type, unspecified pathological fracture presence documented in this encounter Care Teams Process Analyst Relationship Specialty Start Date End Date Estela Aguilar DO [address] [place] [address] PCP - General Family Medicine 12/22/19 documented as of this encounter
--- OUTSIDE RECORDS SUMMARY | 2024-04-22 10:37 | XMS_ITS | Encounter Summary ---
Author Organization [facility] [place] [address] Care Team Providers Care Asphalt Paving Machine Operator Name Role Phone Estela Aguilar DO Primary Care Provider +1- [phone] Encounter Details Date Type Department Care Team (Late st Contact Info) Description 05/31/2023 External [place] [address] Anderson Vital MD [facility] DR ALYSSA [place] [address] Social History Tobacco Use Types Packs/Day Years [...] on filedocumented in this encounter Care Teams Asphalt Paving Machine Operator Relationship Specialty Start Date End Date Estela Aguilar DO [address] [place] [address] PCP - General Family Medicine 12/22/19 documented as of this encounter
--- OUTSIDE RECORDS SUMMARY | 2024-04-22 10:37 | XMS_ITS | Encounter Summary ---
Author Organization [facility] [place] [address] Care Team Providers Care Able Bodied Tankerman Name Role Phone Estela Aguilar DO Primary Care Provider +1- [phone] Encounter Details Date Type Department Care Team (Latest Contact Info) Description 05/31/2023 3:58 PM EST - 05/31/2023 11:59 PM EST [place] [phone] Discharge Disposition: Home Social History Tobacco Use [...] mg/5 mL Liquid 09/02/2019 07/30/2023 Katerina Porter [facility] Spacer 09/02/2019 07/30/2023 predniSONE (Deltasone) 20 mg Tablet 09/08/2019 07/30/2023 documented as of this encounter Plan of Treatment Not on file documented as of this encounter Procedures Procedure Name Priority Date/Time Associated Diagnosis Comments SURGICAL PATHOLOGY REPORT Routine 05/31/2023 3:58 PM EST documented in this encounter Results * (ABNORMAL) Surgical Pathology Report (05/31/2023 3:58 PM EST) Final Diagnosis [id number] ? Location: [facility]W The signing pathologist has (i) examined the relevant preparation(s) for the specimen(s) and (ii) rendered or confirmed the diagnosis(es). . ?Surgical Pathology DIAGNOSIS CONSULTATION CASE A - Outside slide(s) labeled [id number], collection date 04/09/2023. Left cheek, skin shave biopsy - ??Consistent with surface of ??basal cell carcinoma, transected B - Outside slide(s) labeled [id number], collection date 05/21/2023. Left sideburn, skin excision - ??Basal cell carcinoma, superficial, nodular and infiltrating types, present at the peripheral margin - Reparative changes consistent with previous operative site Electronically signed by: ?Martin ZHENG, Camille Verified: ??06/03/2023 13:58 ??Dermatopatholog ist Performed at: ??-[facility] Dept. of Pathology, [place] [address] Incident Response Engineer: Brea Frank MD, FCAP, ??CLIA Certificate: [id number] DISCUSSION THIS RESULT REQUIRES PHYSICIAN/A.P.P. FOLLOW UP ADDITIONAL STUDIES A, B - ??The biopsy reports from the outside facility ([facility]: [id number], [id number]) have been examined. The spelling of the patient's last name ( Ngdung) on that documentation is noted; the spelling of the name in our system (Ng Dung) has been verified against those on the demographic sheet, ? eDH , and insurance information, as per our laboratory's manager quality compliance practices. Aspects of this case were communicated to the outside laboratory's pathologist by email on 2022. SPECIMEN(S) SUBMITTED CONSULTATION CASE A - 1 slide(s) labeled [id number], collection date 04/09/2023. B - 4 slide(s) labeled [id number], collection date 05/21/2023. [id number] CARBON COPY: [facility] Surgical Pathology Department [facility], [facility], 2nd Floor [address] [place], [place] ??[address] CLINICAL INFORMATION A - L cheek lesion ??hx ??sun exposure B - BCCA SPECIMEN PROCESSING [facility] ([facility]) pathology slide(s) are reviewed. Refer to Diagnosis and Specimen Submitted for specific case information. . SPECIMEN PROCESSING For the full text of the [facility] report(s) please refer to the Chart Review Media tab in the electronic health record ( ??eDH).(A) 06/03/2023 1:58 PM EST [facility] Consult Case 05/31/2023 3:58 PM EST 05/31/2023 3:58 PM EST Consult Case 05/31/2023 3:58 PM EST 05/31/2023 3:58 PM EST Anderson Vital MD PATHOLOGY/CYTOLOGY ORDERABLES Performing Organization Address City/State/[facility] Co de Phone Number [facility] [place] [address] [facility] [place] [address] documented in this encounter Visit Diagnoses Not on filedocumented in this encounter Care Teams Able Bodied Tankerman Relationship Specialty Start Date End Date Estela Aguilar DO [address] [place] [address] PCP - General Family Medicine 12/22/19 documented as of this encounter
--- OUTSIDE RECORDS SUMMARY | 2024-04-22 10:37 | XMS_ITS | Continuity of Care Document ---
Author Organization [facility] Address [address] [place] [address] Care Team Providers Care Warp Bleaching Vat Tender Name Role Phone Estela Aguilar Primary Care Physician [phone] Encounter [facility] [id number] Date(s): 03/02/24 - 03/02/[address] [facility] Discharge Disposition: Home or Self Care Attending Physician: Axel Rojo MD Admitting Physician: Axel Rojo MD Referring Physician: Axel Rojo MD Allergies, Adverse Reactions, Alerts No Known Allergies [...] 2 Completed 1Calcification removed. 2cervical cyst removal Results Radiology Reports * Exam Date Time Procedure Performing Provider Status 03/02/24 2:03 PM XR Abdomen KUB 1 View Kelsey Grewal; Auth (Verified) Notes: (XR Abdomen KUB 1 View) Reason For Exam: Right ureteral calculus XR Abdomen KUB 1 View EXAMINATION: XR Abdomen KUB 1 View CLINICAL [...] base is clear. No acute osseous normality. IMPRESSION: 6 mm left renal calculus. No radiographically evident right renal calculus. I have personally reviewed the image(s) and the resident's interpretation and agree with the findings, Vasyl Miranda MD at 03/02/2024 2:59 PM Thank you for letting us participate in the care of this patient. If you are a health care provider and have any questions regarding this report, please contact the number below. For patients who have questions please contact the health landcare facilitator that requested your imaging first. Electronically signed by: Vasyl Miranda MD, [facility] ([phone]), at 03/02/2024 2:59 PM Final Dictated by: Leatha, Generated Dictated DT/TM: 03/02/2024 3:04 pm Signed by: Leatha, Generated Signed (Electronic Signature): 03/02/2024 1:59 pm Transcribed by: CLAUDIO Social History Social History Type Response Smoking Status Smoking tobacco use: Never tobacco user;Never entered on: 02/19/24 Sex Female Patient Care team information Care Team Personnel Name: Estela Aguilar Position: No Access Member Role: Primary Care Physician Address: Address: [address] [place] [id number] [place] [address] Care Team Related Persons Name: MIC MEDEL Address: Home [address] [place] [address], [phone]
--- OUTSIDE RECORDS SUMMARY | 2024-04-22 10:37 | XMS_ITS | Encounter Summary ---
Author Organization [facility] Address [facility] [place] [address] Care Team Providers Care Rn Orthopaedics Name Role Phone Estela Aguilar DO Primary Care Provider +1- [phone] Encounter Details Date Type Department Care Team (Late st Contact Info) Description 04/01/2020 Notes Only Hematology [place] [address] Elijah Montana MD [facility] DR HEMATOLOGY/ONCOLOGY [place] [id number] Social History Tobacco Use Types Packs/Day Years [...] filedocumented in this encounter Care Teams Rn Orthopaedics Relationship Specialty Start Date End Date Estela Aguilar DO [address] [place] [address] PCP - General Family Medicine 12/22/19 documented as of this encounter
--- OUTSIDE RECORDS SUMMARY | 2024-04-22 10:37 | XMS_ITS | Encounter Summary ---
[place] [address] Care Team Providers Care Manager Project Name Role Phone QueenieEstela mejia Danny MAGAÑA Primary Care Provider +1- [phone] Encounter Details Date Type Department Care Team (Late st Contact Info) Description 03/02/2024 Interpretation Only [address] [phone] Axel Rojo MD [address] [place] [address] Social History Tobacco Use Types Packs/Day Years [...] PM EDT) PT CLASS O RAD ADMITDTTM [id number] RAD PT RAD INFO [id number]^Alia ^Axel RAD EXAM DESC XABD1^XR Abdomen KUB 1 View^RIS RAD WORKSTATION ID [id number] RAD Anatomical Region Laterality Modality Abdomen N/A [...] who have questions please contact the health point of care technician that requested your imaging first. ? Narrative [...] patients who have questions please contactthe health point of care technician that requested your imaging first. Axel Rojo MD IMG DX ORDERABLES documented in this encounter Visit Diagnoses Not on filedocumented in this encounter Care Teams Manager Project Relationship Specialty Start Date End Date Estela Aguilar DO [address] [place] [address] PCP - General Family Medicine 12/22/19 documented as of this encounter
--- OUTSIDE RECORDS SUMMARY | 2024-04-22 10:37 | XMS_ITS | Encounter Summary ---
Author Organization [facility] Address [facility] [place] [address] Care Team Providers Care Manager Department Name Role Phone Lauren Estelajoe Delgado DO Primary Care Provider +1- [phone] Reason for Visit * Reason Comments Basal Cell Carcinoma * Consultation (Routine) - Authorized Specialty Diagnoses / Procedures Referred By Contmatthew t Referred To Contact Dermatology Diagnoses Basal cell carcinoma (BCC) of skin of face, unspecified part of face Maicol Bazan MD [address] [place] [address] [place] [address] Anderson Vital MD [facility] [address] [place] [address] Referral ID Status Reason Start Date Expiration Date Visits Requested Visits Authorized [id number] Authorized Consult, Test & Treat PCP Updated and/or Approved 3 06/03/2024 6 6 Encounter Details Date Type Department Care Team (Latest Contact Info) Description 07/30/2023 8:00 AM EST Procedure visit Dermatology at [facility] [address] [place] [address] Anderson Vital MD [facility] [place] [address] Basal cell carcinoma (BCC) of [...] and follow up with his or her final inspector paper or other skin provider. 5. Discussed avoiding [...] Reviewed and signed by: Anderson Vital Dermatology [facility] * Anderson Vital MD - 07/30/2023 8:00 AM EST Mohs micrographic Surgery Operative Report Patient name: Zayra Suarez : 1960 Date: 07/30/2023 Staff Surgeon and Pathologist: Anderson Vital MD PhD Nursing/Founder / Ceo(s): Carol Ann Harris RN, Cookie Noland RN, Gely Rajan BATON TWIRLER, Cathy Mcqueen-Elton EVANGELISTAN, Randell Rosario CMA, Lizzy López LPN, Angelique COOPER Fabrication Inspector (s): Randell Godinez CMA Pre-operative diagnosis: Basal [...] The site was confirmed with the patient/authorized open claims representative/referring physician and/or a photograph form time [...] Surgery and Dermatologic Oncology Department of Dermatology [address] [place] [address] Repair Report (Flap) Patient name: Zayra Suarez Staff Surgeon: Anderson Vital MD PhD Account Analyst(s): same as above human resources office assistant: Lamin Ocampo MD and Cookie Noland RN Date: 07/30/2023 Clinical Diagnosis: skin and soft tissue defect status post Mohs micrographic surgery Location/Site: left sideburn Indication: repair of wound with hindu of anatomy/function Defect size to be repaired: [...] was created by making incisions along left sikh and left preauricular cheek. The flap and [...] Surgery and Dermatologic Oncology Department of Dermatology [address] [place] [address] Note initiated by Cookie Noland RN. Cookie Noland RN has performed the documentation for this encounter in the presence of and acting as a scribe for Dr. Vital I performed the above scribed service and agree with the accuracy of the documentation in this encounter. Reviewed and signed by: Anderson Vital Dermatology [facility] documented in this encounter Plan of Treatment Scheduled Referrals Name Type Priority Associated Diagnoses Orde r Schedule Referral to Dermatology Outpatient Referral Routine Basal cell carcinoma (BCC) of skin of face, unspecified part of face Ordered: 06/04/2023 documented as of this encounter Visit Diagnoses Diagnosis Basal cell carcinoma (BCC) of sideburn area documented in this encounter Care Teams Manager Department Relationship Specialty Start Date End Date Estela Aguilar DO [address] [place] [address] PCP - General Family Medicine 12/22/19 documented as of this encounter
--- OUTSIDE RECORDS SUMMARY | 2024-04-22 10:37 | XMS_ITS | Clinical Summary ---
Author Organization [place] [address] Care Team Providers Care Manager Assisted Living Name Role Phone Estela Aguilar DO Primary Care Provider +1- [phone] Allergies No known active allergies Medications Medication [...] Department Care Team Description 03/02/2024 Interpretation Only [address] [address] Axel Rojo MD from Last [...] HIV screen 1978 Hepatitis C Screening 1978 Tetanus/Diphtheria/Pertussis Vaccines (1 - Tdap) 12/31 HPV test 1990 PAP Smear 1990 Breast Cancer Share Decision Needed 2000 Breast Cancer screening 2000 Zoster vaccine (1 of 2) 2010 Advance Directive 01/01/2016 Covid-19 Vaccine ( - season) 2024 Influenza (Flu) vaccine (1 o f 1 - Influenza standard series) 03/22/2024 Procedures Procedure Name Priority Date/Time Associated Diagnosis Comments XR ABDOMEN 1 VIEW Routine 03/02/2024 2:0 3 PM EDT from Last 3 Months Results * XR Abdomen 1 view (Generic) (03/02/2024 2:03 PM EDT) PT CLASS O RAD ADMITDTTM [id number] RAD PT RAD MD INFO [id number]^Alia ^Axel RAD EXAM DESC XABD1^XR Abdomen KUB 1 View^RIS RAD WORKSTATION ID [id number] RAD Anatomical Region Laterality Modality Abdomen N/A [...] who have questions please contact the health home care administrator that requested your imaging first. ? Narrative [...] patients who have questions please contactthe health home care administrator that requested your imaging first. Axel Rojo MD IMG DX ORDERABLES from Last 3 Months Care Teams Manager Assisted Living Relationship Specialty Start Date End Date Estela Aguilar DO [address] [place] [address] PCP - General Family Medicine 12/22/19
--- OUTSIDE RECORDS SUMMARY | 2024-04-22 10:37 | XMS_ITS | Encounter Summary ---
[place] [address] Care Team Providers Care Impregnator Carbon Products Name Role Phone Estela Aguilar DO Primary Care Provider +1- [phone] Encounter Details Date Type Department Care Team [...] on filedocumented in this encounter Care Teams Impregnator Carbon Products Relationship Specialty Start Date End Date Estela Aguilar DO [address] [facility] [place] [place] [address] PCP - General Family Medicine 12/22/19 documented as of this encounter
--- OUTSIDE RECORDS SUMMARY | 2024-04-22 10:37 | XMS_ITS | Encounter Summary ---
Author Organization [facility] Address [facility] [place] [address] Care Team Providers Care Secured Entrance Monitor Name Role Phone Estela Aguilar DO Primary Care Provider +1- [phone] Reason for Referral * Consultation (Routine) - Authorized Specialty Diagnoses / Procedures Referred By Renzo t Referred To Contact Dermatology Diagnoses Basal cell carcinoma (BCC) of skin of face, unspecified part of face Maicol Bazan MD [address] [place] [address] [place] [address] Anderson Vital MD [facility] [place] [address] Referral ID Status Reason Start Date Expiration Date Visits Requested Visits Authorized [id number] Authorized Consult, Test & Treat PCP Updated and/or Approved 06/03/2024 6 6 Encounter Details Date Type Department Care Team (Late st Contact Info) Description 06/04/2023 Transcribe Orders eDH Incoming Referrals [phone] Maicol Bazan MD [address] [place] [address] [place] [address] Basal cell carcinoma (BCC) of [...] face documented in this encounter Care Teams Secured Entrance Monitor Relationship Specialty Start Date End Date Estela Aguilar DO [address] [place] [place] [address] PCP - General Family Medicine 12/22/19 documented as of this encounter
--- OUTSIDE RECORDS SUMMARY | 2024-04-22 10:37 | XMS_ITS | Encounter Summary ---
[place] [address] Care Team Providers Care Motorcycle Delivery Driver Name Role Phone Estela Aguilar DO Primary Care Provider +1- [phone] Encounter Details Date Type Department Care Team [...] on filedocumented in this encounter Care Teams Motorcycle Delivery Driver Relationship Specialty Start Date End Date Estela Aguilar DO [address] [facility] [address] PCP - General Family Medicine 12/22/19 documented as of this encounter
--- OUTSIDE RECORDS SUMMARY | 2024-04-22 10:37 | XMS_ITS | Continuity of Care Document ---
Author Organization [facility] Address [address] [place] [id number] Care Team Providers Care Cardiac Rn Name Role Phone Estela Aguilar Primary Care Physician Encounter [facility] [id number] Date(s): 02/25/24 - 02/25/[address] [facility] Encounter Diagnosis Right ureteral calculus(Discharge Diagnosis) - 02/25/24 Bilateral nephrolithiasis(Discharge Diagnosis) - 02/25/24 Discharge Disposition: Home or Self Care Attending Physician: Axel Rojo MD Admitting Physician: Axel Rojo MD Referring Physician: Estela Aguilar Allergies, Adverse Reactions, Alerts No Known Allergies Assessment and Plan Future Appointments Appointment Date:03/05/2024 10:20:00 AM Scheduled Provider:Axel Rojo MD Location:[facility] Urology Appointment Type:Urology Follow Up ([facility]) Functional Status 02/25/24 ADLs Independent Medications Albuterol (Eqv-Proventil HFA) 90 mcg/inh inhalation aerosol 2 puffs, Inhale, every 6 hr, PRN as needed for wheezing, 0 Refill(s) Start Date: 02/19/24 Status: Ordered benzonatate 100 mg oral capsule 100 mg = 1 cap, Oral, TID, PRN as needed for cough, 0 Refill(s) Start Date: 02/19/24 Status: Ordered doxycycline 100 mg =, Oral, BID, tab, 0 Refill(s) Start Date: 02/18/24 Stop Date: 02/25/24 Status: Ordered Flomax 0.4 mg oral capsule 0.4 mg = 1 cap, Oral, Daily, 0 Refill(s) Start Date: 02/19/24 Status: Ordered Problem List Condition Confirmation Course Effective Dates [...] Active History of breast surgery Confirmed Active LLQ pain Confirmed Active Obesity [...] 2 Completed 1Calcification removed. 2cervical cyst removal Vital Signs Most recent to oldest [Reference Range]: 1 2 3 Temperature Temporal Artery [36-38 Deg C] 36.4 Deg C (02/25/24 11:54 AM) 36 Deg C (02/25/24 11:49 AM) 36 Deg C (02/25/24 11:41 AM) Temperature Temporal Artery (DegF) [97.3-100 Deg F] 97.52 Deg F (02/25/24 11:54 AM) 96.8 Deg F *LOW* (02/25/24 11:49 AM) 96.8 Deg F *LOW* (02/25/24 11:41 AM) Apical Heart Rate [60-100 bpm] 54 bpm *LOW* (02/25/24 11:54 AM) 53 bpm *LOW* (02/25/24 11:49 AM) 58 bpm *LOW* (02/25/24 11:41 AM) Peripheral Pulse Rate [60-100 bpm] 54 bpm *LOW* (02/25/24 11:49 AM) 58 bpm *LOW* (02/25/24 11:41 AM) Respiratory Rate [12-24 br/min] 11 br/min *LOW* (02/25/24 11:54 AM) 10 br/min *LOW* (02/25/24 11:49 AM) 12 br/min (02/25/24 11:41 AM) Blood Pressure [90-140/60-90 mmHg] 117/74mmHg (02/25/24 11:54 AM) 107/69mmHg (02/25/24 11:49 AM) 110/66mmHg (02/25/24 11:41 AM) Mean Arterial Pressure, Cuff [65-140 mmHg] 88 mmHg (02/25/24 11:54 AM) 82 mmHg (02/25/24 11:49 AM) 81 mmHg (02/25/24 11:41 AM) Blood Pressure Method Automatic (02/25/24 11:41 AM) Height/Length Measured (inches) 64 inch (02/25/24 9:05 AM) BSA Measured 0 m2 (02/25/24 9:05 AM) Height 162.56 cm (02/25/24 9:05 AM) Social History Social History Type Response Smoking Status Smoking tobacco use: Never tobacco user;Never entered on: 02/19/24 Sex Female Hospital Discharge Instructions Patient Education 02/25/2024 09:39:49 ESWL for Kidney Stones, Care After ESWL for Kidney Stones, Care After The following information offers guidance on how to care for yourself after your procedure. Your health care provider may also give you more specific instructions. If you have problems or questions, contact your health care provider. What can I expect after the procedure? After the procedure, it is common to have: ??? Some blood in your urine. This should only last for a few days. ??? Soreness in your back, sides, or upper abdomen for a few days. ??? Blotches or bruises on the area where the shock wave entered the skin. ??? Pain, discomfort, or nausea when pieces (fragments) of the kidney stone move through the tube that carries urine from the kidney to the bladder (ureter). Fragments may pass soon after the procedure. They may also take up to 4???8 weeks to pass. ??? If you have severe pain or nausea, contact your health care provider. This may be caused by a large stone that was not broken up enough. This may mean that you need more treatment. ??? Some pain or discomfort during urination. ??? Some pain or discomfort in the lower abdomen or at the base of the penis. Follow these instructions at home: Medicines ??? Take vckv-kxu-wisnrbc and prescription medicines only as told by your health care provider. ??? If you were prescribed antibiotics, take them as told by your health care provider. Do not stopusing the antibiotic even if you start to feel better. ??? Ask your health care provider if the medicine prescribed to you: ??? Requires you to avoid driving or using machinery. ??? Can cause constipation. You may need to take these actions to prevent or treat constipation: ??? Take vivg-cnt-ctxgrao or prescription medicines. ??? Eat foods that are high in fiber, such as beans, whole grains, and fresh fruits and vegetables. ??? Limit foods that are high in fat and processed sugars, such as fried or sweet foods. Eating and drinking ??? Follow instructions from your health care provider about what you may eat and drink. You may betold to: ??? Reduce how much salt (sodium) you eat or drink. Check ingredients and nutrition facts on packaged foods and drinks to see how much sodium they contain. ??? Reduce how much meat you eat. ??? Drink enough fluid to keep your urine pale yellow. This can help you pass any pieces of the stone that are left. It can also prevent new stones from forming. ??? Eat plenty of fresh fruits and vegetables. ??? Eat the recommended amount of calcium for your age and gender. Ask your health care provider how much calcium you should have. Activity ??? Get plenty of rest as told by your health care provider. ??? Avoid sitting for a long time without moving. Get up to take short walks every 1???2 hours. This is important to improve blood flow and breathing. Ask for help if you feel weak or unsteady. ??? Your health care provider may tell you to lie in a certain position (postural drainage) and tapfirmly (percuss) over your kidney area to help stone fragments pass. Follow instructions as told byyour health care provider. ??? Return to your normal activities as told by your health care provider. Ask your health care provider what activities are safe for you. Most people can resume normal activities 1???2 days after the procedure. General instructions ??? If told, strain all urine through the strainer that was provided by your health care provider. ??? Keep all fragments for your health care provider to see. Any stones that are found may be sent to a medical lab for examination. The stone may be as small as a grain of salt. ??? Keep all follow-up visits. This is important if you had a stent placed because it may need to stay in place for a few weeks. Ask your health care provider when the stent will be removed. Contact a health care provider if: ??? You have a fever or chills. ??? You have severe nausea that leads to persistent vomiting. ??? You have any of these urinary symptoms: ??? Increased blood or blood clots in the urine. ??? Urine that smells bad or unusual. ??? A strong urge to urinate after emptying your bladder. ??? Pain or burning with urination that does not go away. ??? A continued need to urinate more often than usual. ??? You have a stent, and it comes out. Get help right away if: ??? You have severe pain in your back, sides, or upper abdomen. ??? You faint. ??? You have any of these urinary symptoms: ??? Severe pain while urinating. ??? More blood in your urine, or blood in your urine when you did not have any before. ??? Blood clots in your urine larger than 1 inch (2.5 cm) in size. ??? You pass only a small amount of urine when you urinate or are unable to pass any urine. This information is not intended to replace advice given to you by your health care provider. Make sure you discuss any questions you have with your health care provider. Document Revised: 11/08/2022 Document Reviewed: 11/08/2022 [employer] Patient Education ?? 2022 [employer]. 02/25/2024 09:39:48 ESWL for Kidney Stones ESWL for Kidney Stones Extracorporeal shock wave lithotripsy (ESWL) is a treatment that can help break up kidney stones that are too large to pass on their own. This is a nonsurgical procedure that breaks up a kidney stone with shock waves. These shock waves pass through your body and focus on the kidney stone. They cause the kidney stone to break into smaller pieces (fragments) while it is still in the urinary tract. The fragments of stone can pass more easily out of your body in the urine. Tell a health care provider about: ??? Any allergies you have. ??? All medicines you are taking, including vitamins, herbs, eye drops, creams, and ntei-qyl-pjymcdk medicines. ??? Any problems you or family members have had with anesthetic medicines. ??? Any bleeding problems you have. ??? Any surgeries you have had. ??? Any medical conditions you have. ??? Whether you are or may be . What are the risks? Your health care provider will talk with you about risks. These may include: ??? Infection. ??? Bleeding from the kidney. ??? Bruising of the kidney or skin. ??? Scarring of the kidney. This can lead to: ??? Increased blood pressure. ??? Poor kidney function. ??? Return (recurrence) of kidney stones. ??? Damage to other structures or organs. This may include the liver, colon, spleen, or pancreas. ??? Blockage (obstruction) of the tube that carries urine from the kidney to the bladder (ureter). ??? Failure of the kidney stone to break into fragments. What happens before the procedure? When to stop eating and drinking Follow instructions from your health care provider about what you may eat and drink. These may include: ??? 8 hours before your procedure ??? Stop eating most foods. Do not eat meat, fried foods, or fatty foods. ??? Eat only light foods, such as toast or crackers. ??? All liquids are okay except energy drinks and alcohol. ??? 6 hours before your procedure ??? Stop eating. ??? Drink only clear liquids, such as water, clear fruit juice, black coffee, plain tea, and sportsdrinks. ??? Do not drink energy drinks or alcohol. ??? 2 hours before your procedure ??? Stop drinking all liquids. ??? You may be allowed to take medicines with small sips of water. If you do not follow your health care provider's instructions, your procedure may be delayed or canceled. Medicines Ask your health care provider about: ??? Changing or stopping your regular medicines. These include any diabetes medicines or blood thinners you take. ??? Taking medicines such as aspirin and ibuprofen. These medicines can thin your blood. Do not take them unless your health care provider tells you to. ??? Taking iybx-psv-cukaypo medicines, vitamins, herbs, and supplements. Tests You may have tests, such as: ??? Blood tests. ??? Urine tests. ??? Imaging tests. This may include a CT scan. Surgery safety Ask your health care provider: ??? How your surgery site will be marked. ??? What steps will be taken to help prevent infection. These steps may include: ??? Washing skin with a soap that kills germs. ??? Receiving antibiotics. General instructions ??? If you will be going home right after the procedure, plan to have a responsible adult: ??? Take you home from the hospital or clinic. You will not be allowed to drive. ??? Care for you for the time you are told. What happens during the procedure? An IV will be inserted into one of your veins. ??? You may be given: ??? A sedative. This helps you relax. ??? Anesthesia. This will: ??? Numb certain areas of your body. ??? Make you fall asleep for surgery. ??? A water-filled cushion may be placed behind your kidney or on your abdomen. In some cases, you may be placed in a tub of lukewarm water. ??? Your body will be positioned in a way that makes it easier to target the kidney stone. ??? An X-ray or ultrasound exam will be done to locate your stone. ??? Shock waves will be aimed at the stone. If you are awake, you may feel a tapping sensation as the shock waves pass through your body. ??? A small mesh tube (stent) may be placed in your ureter. This will help keep urine flowing from the kidney if the fragments of the stone have been blocking the ureter. The stent will be removed chet later time by your health care provider. The procedure may vary among health care providers and hospitals. What happens after the procedure? Your blood pressure, heart rate, breathing rate, and blood oxygen level will be monitored untilyou leave the hospital or clinic. ??? You may have an X-ray after the procedure to see how many of the kidney stones were broken up. This will also show how much of the stone has passed. If there are still large fragments after treatment, you may need to have a second procedure at a later time. This information is not intended to replace advice given to you by your health care provider. Make sure you discuss any questions you have with your health care provider. Document Revised: 11/08/2022 Document Reviewed: 11/08/2022 [employer] Patient Education ?? 2022 [employer] Discharge instructions * Pepper Cesar RN: PERFORM Event Display: Discharge Instructions Authored Date: [id number] MIGUEL MEDEL :1960 Age:63 years Sex:Female Visit Date:02/25/2024 Primary Care Physician: Estela Aguilar [facility] Discharge Instructions We would like to thank you for allowing us to assist you with your healthcare needs. The following includes patient education materials and information regarding your injury/illness. Your Next Steps Instructions From Your Care Team Diet as tolerated. ??Activity as tolerated once there is no more blood in the urine.?? Expect some blood in the urine, right flank pain,??bruising,??and possibly frequency and urgency as fragments passed.?? May use??Tylenol or extra strength??Tylenol as needed. ??Once there is no more visible bloodin the urine, may use ibuprofen, Advil, Aleve,??Naprosyn, or aspirin.?? May use tamsulosin??(Flomax) for??ureteral spasms.?Strain the urine for stone fragments.?? Call or return for fever above 100.5, shaking chills, severe pain, persistent heavy bleeding, difficulty voiding, or other concerns.?? Office visit in 7 to 10 days??with a KUB x-ray immediately prior. Scheduled Future Appointments 2023 10:20 AM EDT ?? With: Axel Rojo MD Where: [facility] Urology [address] [place] [id number]- Status: Confirmed Medications What How Much When Instructions Next Dose Unchanged albuterol (Albuterol (Eqv- Proventil HFA) 90 mcg/ inh inhalation aerosol) 2 Puffs Inhale (breathe in) Every 6 hours as needed for as needed for wheezing Unchanged benzonatate (benzonatate 100 mg oral capsule) 1 Capsules Oral (given by mouth) 3 times a day as needed for as needed for cough Unchanged doxycycline 100 Milligrams Oral (given by mouth) 2 times a day Duration: 7 Days Unchanged tamsulosin (Flomax 0.4 mg oral capsule) 1 Capsules Oral (given by mouth) Every day Your Summary Your Care Team Admitting Physician - Axel Rojo MD Attending Physician - Axel Rojo MD Primary Care Physician - Estela Aguilar Referring Physician - Estela Aguilar Your Diagnosis Right ureteral calculus Bilateral nephrolithiasis Problems Ongoing - Any problem that you are currently receiving treatment for. Abnormal auditory perception Asymmetric tonsils Basal cell carcinoma (BCC) of face Cervical polyp Family history of cardiovascular disease Family history of colon cancer Family history of ovarian cancer History of breast surgery Hx of colonoscopy Hx of viral illness Infected dog bite of hand including fingers Internal derangement of right knee LLQ pain Obesity Osteoporosis Sensorineural hearing loss (SNHL) of both ears Tingling in extremities Discharge Vitals Temperature??(Temporal Artery) 97.5 ??F (36.4 ??C) Heart Rate??(Apical) 54 Respiratory Rate?? 11 Blood Pressure?? 117/74?? SpO2?? 98% Height?? 64.00 in (162.56 cm) Allergies No Known Allergies Education Materials ESWL for Kidney Stones, Care After The following information offers guidance on how to care for yourself after your procedure. Your health care provider may also give you more specific instructions. If you have problems or questions, contact your health care provider. What can I expect after the procedure? After the procedure, it is common to have: ? Some blood in your urine. This should only last for a few days. ? Soreness in your back, sides, or upper abdomen for a few days. ? Blotches or bruises on the area where the shock wave entered the skin. ? Pain, discomfort, or nausea when pieces (fragments) of the kidney stone move through the tube that carries urine from the kidney to the bladder (ureter). Fragments may pass soon after the procedure. They may also take up to 4???8 weeks to pass. ? If you have severe pain or nausea, contact your health care provider. This may be caused by a largestone that was not broken up enough. This may mean that you need more treatment. ? Some pain or discomfort during urination. ? Some pain or discomfort in the lower abdomen or at the base of the penis. Follow these instructions at home: Medicines ? Take oscx-xph-hcfgjgo and prescription medicines only as told by your health care provider. ? If you were prescribed antibiotics, take them as told by your health care provider. Do not stop using the antibiotic even if you start to feel better. ? Ask your health care provider if the medicine prescribed to you: ? Requires you to avoid driving or using machinery. ? Can cause constipation. You may need to take these actions to prevent or treat constipation: ? Take foxu-yio-vllhqcb or prescription medicines. ? Eat foods that are high in fiber, such as beans, whole grains, and fresh fruits and vegetables. ? Limit foods that are high in fat and processed sugars, such as fried or sweet foods. Eating and drinking ? Follow instructions from your health care provider about what you may eat and drink. You may be told to: ? Reduce how much salt (sodium) you eat or drink. Check ingredients and nutrition facts on packaged foods and drinks to see how much sodium they contain. ? Reduce how much meat you eat. ? Drink enough fluid to keep your urine pale yellow. This can help you pass any pieces of the stone that are left. It can also prevent new stones from forming. ? Eat plenty of fresh fruits and vegetables. ? Eat the recommended amount of calcium for your age and gender. Ask your health care provider how much calcium you should have. Activity ? Get plenty of rest as told by your health care provider. ? Avoid sitting for a long time without moving. Get up to take short walks every 1???2 hours. This isimportant to improve blood flow and breathing. Ask for help if you feel weak or unsteady. ? Your health care provider may tell you to lie in a certain position (postural drainage) and tap firmly (percuss) over your kidney area to help stone fragments pass. Follow instructions as told by your health care provider. ? Return to your normal activities as told by your health care provider. Ask your health care provider what activities are safe for you. Most people can resume normal activities 1???2 days after the procedure. General instructions ? If told, strain all urine through the strainer that was provided by your health care provider. ? Keep all fragments for your health care provider to see. Any stones that are found may be sent to amedical lab for examination. The stone may be as small as a grain of salt. ? Keep all follow-up visits. This is important if you had a stent placed because it may need to stay in place for a few weeks. Ask your health care provider when the stent will be removed. Contact a health care provider if: ? You have a fever or chills. ? You have severe nausea that leads to persistent vomiting. ? You have any of these urinary symptoms: ? Increased blood or blood clots in the urine. ? Urine that smells bad or unusual. ? A strong urge to urinate after emptying your bladder. ? Pain or burning with urination that does not go away. ? A continued need to urinate more often than usual. ? You have a stent, and it comes out. Get help right away if: ? You have severe pain in your back, sides, or upper abdomen. ? You faint. ? You have any of these urinary symptoms: ? Severe pain while urinating. ? More blood in your urine, or blood in your urine when you did not have any before. ? Blood clots in your urine larger than 1 inch (2.5 cm) in size. ? You pass only a small amount of urine when you urinate or are unable to pass any urine. This information is not intended to replace advice given to you by your health care provider. Make sure you discuss any questions you have with your health care provider. Document Revised: 11/08/2022 Document Reviewed: 11/08/2022 [employer] Patient Education ?? 2022 [employer] ESWL for Kidney Stones Extracorporeal shock wave lithotripsy (ESWL) is a treatment that can help break up kidney stones that are too large to pass on their own. This is a nonsurgical procedure that breaks up a kidney stone with shock waves. These shock waves pass through your body and focus on the kidney stone. They cause the kidney stone to break into smaller pieces (fragments) while it is still in the urinary tract. The fragments of stone can pass more easily out of your body in the urine. Tell a health care provider about: ? Any allergies you have. ? All medicines you are taking, including vitamins, herbs, eye drops, creams, and jxvb-mlz-aqzjgif medicines. ? Any problems you or family members have had with anesthetic medicines. ? Any bleeding problems you have. ? Any surgeries you have had. ? Any medical conditions you have. ? Whether you are or may be . What are the risks? Your health care provider will talk with you about risks. These may include: ? Infection. ? Bleeding from the kidney. ? Bruising of the kidney or skin. ? Scarring of the kidney. This can lead to: ? Increased blood pressure. ? Poor kidney function. ? Return (recurrence) of kidney stones. ? Damage to other structures or organs. This may include the liver, colon, spleen, or pancreas. ? Blockage (obstruction) of the tube that carries urine from the kidney to the bladder (ureter). ? Failure of the kidney stone to break into fragments. What happens before the procedure? When to stop eating and drinking Follow instructions from your health care provider about what you may eat and drink. These may include: ? 8 hours before your procedure ? Stop eating most foods. Do not eat meat, fried foods, or fatty foods. ? Eat only light foods, such as toast or crackers. ? All liquids are okay except energy drinks and alcohol. ? 6 hours before your procedure ? Stop eating. ? Drink only clear liquids, such as water, clear fruit juice, black coffee, plain tea, and sports drinks. ? Do not drink energy drinks or alcohol. ? 2 hours before your procedure ? Stop drinking all liquids. ? You may be allowed to take medicines with small sips of water. If you do not follow your health care provider's instructions, your procedure may be delayed or canceled. Medicines Ask your health care provider about: ? Changing or stopping your regular medicines. These include any diabetes medicines or blood thinnersyou take. ? Taking medicines such as aspirin and ibuprofen. These medicines can thin your blood. Do not take them unless your health care provider tells you to. ? Taking vddw-ghg-qwppoqe medicines, vitamins, herbs, and supplements. Tests You may have tests, such as: ? Blood tests. ? Urine tests. ? Imaging tests. This may include a CT scan. Surgery safety Ask your health care provider: ? How your surgery site will be marked. ? What steps will be taken to help prevent infection. These steps may include: ? Washing skin with a soap that kills germs. ? Receiving antibiotics. General instructions ? If you will be going home right after the procedure, plan to have a responsible adult: ? Take you home from the hospital or clinic. You will not be allowed to drive. ? Care for you for the time you are told. What happens during the procedure? An IV will be inserted into one of your veins. ? You may be given: ? A sedative. This helps you relax. ? Anesthesia. This will: ? Numb certain areas of your body. ? Make you fall asleep for surgery. ? A water-filled cushion may be placed behind your kidney or on your abdomen. In some cases, you may be placed in a tub of lukewarm water. ? Your body will be positioned in a way that makes it easier to target the kidney stone. ? An X-ray or ultrasound exam will be done to locate your stone. ? Shock waves will be aimed at the stone. If you are awake, you may feel a tapping sensation as the shock waves pass through your body. ? A small mesh tube (stent) may be placed in your ureter. This will help keep urine flowing from the kidney if the fragments of the stone have been blocking the ureter. The stent will be removed at a later time by your health care provider. The procedure may vary among health care providers and hospitals. What happens after the procedure? Your blood pressure, heart rate, breathing rate, and blood oxygen level will be monitored until youleave the hospital or clinic. ? You may have an X-ray after the procedure to see how many of the kidney stones were broken up. Thiswill also show how much of the stone has passed. If there are still large fragments after treatment, you may need to have a second procedure at a later time. This information is not intended to replace advice given to you by your health care provider. Make sure you discuss any questions you have with your health care provider. Document Revised: 11/08/2022 Document Reviewed: 11/08/2022 Elsevier Patient Education ?? 2022 [employer] Patient/Benefits Sales Consultant Signature Patient Name:MIGUEL MEDEL I have received this information and my questions have been answered. Patient/Benefits Sales Consultant Name: Patient/Benefits Sales Consultant Signature: Relationship to Patient: Witness Name/Signature: Date: Electronically Signed on: 02/25/2024 14:14 EDT Signed by:JUAN Patient Care team information Care Team Personnel Name: Estela Aguilar Position: No Access Member Role: Primary Care Physician Address: Address: [address] [place] [address]- Care Team Related Persons Name: MIC MEDEL Address: Home [address] [place] [phone]
--- OUTSIDE RECORDS SUMMARY | 2024-04-22 10:37 | XMS_ITS | Encounter Summary ---
Author Organization [facility] Address [facility] [place] [address] Care Team Providers Care Certified Cytotechnologist Name Role Phone Lauren Estelajoe Delgado DO Primary Care Provider [phone]- [phone] Encounter Details Date Type Department Care Team (Late st Contact Info) Description 07/04/2023 Telephone Dermatology at [facility] [address] [place] [address] Anderson Viatl MD [facility] [address] [place] [address] Social History Tobacco Use Types Packs/Day Years [...] on filedocumented in this encounter Care Teams Certified Cytotechnologist Relationship Specialty Start Date End Date Estela Aguilar DO [address] [facility] [place] [address] PCP - General Family Medicine 12/22/19 documented as of this encounter
--- OUTSIDE RECORDS SUMMARY | 2024-04-22 10:37 | XMS_ITS | Encounter Summary ---
Author Organization [facility] Address [address] [place] [address] Care Team Providers Care Network Technician Name Role Phone Unknown, Provider Primary Care Provider Encounter Details Date Type Department Care Team (Late st Contact Info) Description 08/23/2020 Lab Requisition [facility] Pathology & Laboratory Medicine - [facility] [address] [place] [address] Lakshmi Russell [address] [place] [address] [place] [address] Encounter for other general examination [...] types, PCR Negative Negative 08/31/2020 15:13 EST [facility] Comment:No E6 or E7 mRNA is detected from HPV types 16,18,31,33,35,39,45,51,52,56,58,59,66, and 68 by cherry pitter mediated amplification. Papanicolaou smear specimen (specimen) CERVIX UTERI STRUCTURE / Unknown 08/22/2020 15:42 EST 08/29/2020 16:38 EST Lakshmi Russell MICROBIOLOGY - GENER AL ORDERABLES [facility] [address] [place] [id number] * PAP TEST (08/22/2020 15:42 EST) Specimens A. Cervix and/or Endocervix , ThinPrep Imaging System with Manual Evaluation 08/31/2020 15:13 [facility] Specimen Adequacy Satisfactory for Evaluation - transformation zone component present Scant squamous epithelial component, contamination present, possibly lubricant 08/31/2020 15:13 [facility] General Categorization Negative for intraepithelial lesion or malignancy 08/31/2020 15:13 [facility] Attestation . 08/31/2020 15:13 [facility] at 1513 Clinical History See below 08/31/19 15:13 [facility] HPV The result for the Human Papillomavirus (HPV) Detection-High Risk Types is Negative. No E6 or E7 mRNA is detected from HPV types 16,18,31,33,35,39 ,45,51,52,56,58,5 9,66, and 68 by cherry pitter mediated amplification.Ashli ting was performed on specimen [id number] and was resulted on 08/31/2020 1415 EST by MARGARETH, LAB INSTRUMENT RESULTS IN 08/31/2020 15:13 [facility] Performing Lab [facility] 08/31/2020 15:13 [facility] Scanned Images 08/31/2020 15:13 [facility] Papanicolaou smear specimen (specimen) CERVIX UTERI STRUCTURE / Unknown 08/22/2020 15:42 EST 08/23/2020 9:58 EST Lakshmi Russell PATHOLOGY ORDERABLES [facility] [address] [place] [address] documented in this encounter Visit Diagnoses Diagnosis Encounter for other general examination documented in this encounter Care Teams Network Technician Relationship Specialty Start Date End Date Unknown, Provider, PCP - General 07/22/20 documented as of this encounter
--- OUTSIDE RECORDS SUMMARY | 2024-04-22 10:37 | XMS_ITS | Encounter Summary ---
Author Organization [facility] [place] [address] Care Team Providers Care Unit Secy Name Role Phone Lauren Estelajoe Delgado DO Primary Care Provider [phone]- [phone] Encounter Details Date Type Department Care Team (Late st Contact Info) Description 02/04/2020 Telephone [place] [address] Elina Francisco, [facility] Social History Tobacco Use Types Packs/Day Years Used Date Smoking Tobacco: Never Assessed Sex and Gender Information Value Date Recorded Sex Assigned at Not on file Gender Identity Not on file Sexual Orientation Not on file documented as of this encounter Miscellaneous Notes * Telephone Encounter - Elina Francisco CCMA - 02/04/2020 9:16 AM EDT [employer] Pre-Telemedicine Phone Note [x] Patient not reached [] Patient reached and the following information was reviewed/obtained per protocol: [] Confirmed patient name and date of [] Confirmed telemedicine lino ([employer] and Virtual Visit) is downloaded and functioning [] Confirmed location of patient - TeleVisit is taking place in [] [place] [] [place] [] If not on [facility], working on signing up for [facility] [] Confirmed has completed any pre-visit questionnaires [] If has not received required pre-visit questionnaires, send via [facility] [] Reviewed patient medications [] Documented self-reported vitals: [] Weight: [] Height [] pulse recorded: [] Other information or concerns documented in this encounter Plan of Treatment Not on file documented as of this encounter Visit Diagnoses Not on filedocumented in this encounter Care Teams Unit Secy Relationship Specialty Start Date End Date Estela Aguilar DO [address] [place] [address] PCP - General Family Medicine 12/22/19 documented as of this encounter
--- OUTSIDE RECORDS SUMMARY | 2024-04-22 10:37 | XMS_ITS | Encounter Summary ---
Author Organization [facility] Address [address] [place] [address] Care Team Providers Care Manager Location Name Role Phone Unknown, Provider Primary Care Provider [phone] Encounter Details Date Type Department Care Team (Late st Contact Info) Description 12/22/2019 Lab Requisition [facility] Pathology & Laboratory Medicine - [facility] [address] [place] [address] Outr Resulting Lab, Provider Social History Tobacco [...] rt-PCR Result NEGATIVE Negative 12/23/2019 13:30 EDT [facility] Comment: 2019-novel Coronavirus (2019-nCoV) not [...] in accordance with CLIA regulations, [employer] (CAP) guidelines (Oct 08, 2019), and FDA guidance (Sep 19, 2019). This test is only for use under the Food and Drug Administration's Emergency Use Authorization. Swab ENTIRE NASOPHARYNX / Unknown 12/22/2019 11:12 EDT 12/22/2019 16:41 EDT Provider Outr Resulting Lab MICROBIOLOGY - GENERAL ORDERABLES [facility] [place], [place] * COVID-19 TESTING (12/22/2019 11:12 EDT) COVID-19 rt-PCR Result NEGATIVE Negative 12/23/2019 14:32 EDT [facility] Comment: 2019-novel Coronavirus (2019-nCoV) not detected [...] in accordance with CLIA regulations, [employer] (CAP) guidelines (Oct 08, 2019), and FDA guidance (Sep 19, 2019). This test is only for use under the Food and Drug Administration's Emergency Use Authorization. Performing Lab [facility] 12/23/2019 14:32 EDT [facility] Swab ENTIRE NASOPHARYNX / Unknown 12/22/2019 11:12 EDT 12/22/2019 16:41 EDT Provider Outr Resulting Lab MICROBIOLOGY - GENERAL ORDERABLES [facility] [address] [place] [address] [facility] [place] documented in this encounter Visit Diagnoses Not on filedocumented in this encounter Care Teams Manager Location Relationship Specialty Start Date End Date Unknown, Provider, PCP - General 07/22/20 documented as of this encounter
--- OUTSIDE RECORDS SUMMARY | 2024-04-22 10:37 | XMS_ITS | Continuity of Care Document ---
Author Organization [facility] Address [address] [place] [id number] Care Team Providers Care Ice Plant Operator Name Role Phone Estela Aguilar Primary Care Physician Encounter [facility] [id number] Date(s): 03/02/24 - 03/02/[address] [facility] Discharge Disposition: Home or Self Care Attending Physician: Axel Rojo MD Allergies, Adverse Reactions, Alerts No Known Allergies Assessment and Plan Future Appointments Appointment Date:03/02/2024 02:20:00 PM Scheduled Provider:Axel Rojo MD Location:[facility] Urology Appointment Type:Urology Follow Up ([facility]) Future Scheduled Tests Radiology* XR Abdomen KUB 1 View 03/02/24 Medications Albuterol (Eqv-Proventil HFA) 90 mcg/inh inhalation [...] Member Role: Primary Care Physician Address: Address: [address] [place] [address]- Care Team Related Persons Name: MIC MEDEL Address: Home [address] [place] [address], [phone]
--- OUTSIDE RECORDS SUMMARY | 2024-04-22 10:37 | XMS_ITS | Continuity of Care Document ---
Author Organization [facility] Address [address] [place] [id number] Care Team Providers Care Homicide Squad Captain Name Role Phone Estela Aguilar Primary Care Physician Encounter [facility] [id number] Date(s): 03/24/24 - 03/24/[address] [address] [place] Discharge Disposition: Home or Self Care Allergies, [...] Member Role: Primary Care Physician Address: Address: [address] [place] [id number] Care Team Related Persons Name: NGDUNG, MIC Address: Home [address] [place] [address], [phone]
== END 2024-03-28 10:36 | disposition home or self-care (01) ==
LOC: LBN 10:35
PROVIDERS: PCP Student in an Organized Health Care Education/Training Program; Visit Provider Urology
DX: N20.0 Calculus of kidney (principal)
CPT/HCPCS: 82365

== ENCOUNTER 2025-03-01 09:58 | Outpatient (CLI) | payer OTHER, SELFPAY ==
--- NOTE | 2025-03-01 08:00 | DI.RAD_ITS ---
Exam(s) XR KNEE RT 3V AP,LAT,PROMISE EXAM: XR KNEE RT 3V AP,LAT,PROMISE CLINICAL HISTORY: R KNEE PAIN. TECHNIQUE: 2D digital imaging was performed. Three views. COMPARISON: CR,XR XR KNEE RT 4V AP,LAT,PROMISE,PAT from 12/25/2022 MR MR LOWER JOINT RT WO from 01/09/2023 FINDINGS: BONES: No acute fracture is present. There is a occluded with mild irregularity at the medial femoral condyle consistent with previously noted osteochondral defect. No bony destructive lesion is seen. JOINTS: There is mild narrowing of the medial femoral tibial joint space and periarticular spurring. The patellofemoral joint is suboptimally profiled. Periarticular spurring is present. No joint effusion is seen. Chondrocalcinosis. SOFT TISSUE: Normal. 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 Worsening of degenerative changes of the medial femoral tibial joint. DATA REPOSITORY: RADIATION DOSE DELIVERED:
== END 2025-03-01 09:59 | disposition home or self-care (01) ==
LOC: DIORS 09:59
PROVIDERS: PCP Student in an Organized Health Care Education/Training Program; Visit Provider Student in an Organized Health Care Education/Training Program
DX: M23.91 Unspecified internal derangement of right knee (principal)
CPT/HCPCS: 73562